=== PATIENT | male | born 1960 | race Caucasian/White ===

== ENCOUNTER 2020-01-14 15:23 | Outpatient (CLI) | payer MEDICARE, SELFPAY ==
[2020-01-14 15:32] LABS: Basophils Absolute Auto 0.04 K/mm3 (0.00-0.10); Basophils Percent Auto 0.7 % (0.0-1.0); Eosinophils Absolute Auto 0.29 K/mm3 (0.02-0.50); Eosinophils Percent Auto 4.9 % (1.0-6.0); Hematocrit 36.9 % (40.0-54.0); Hemoglobin 11.7 g/dL (14.0-18.0); Immature Granulocyte Absolute 0.14 K/mm3 (0.00-0.00); Immature Granulocyte Percent A 2.4 % (0.0-0.0); Lymphocytes Absolute Auto 1.67 K/mm3 (1.10-4.50); Lymphocytes Percent Auto 28.5 % (18.0-42.0); Mean Corpuscular HGB Conc 31.7 g/dL (32.0-36.0); Mean Corpuscular Hemoglobin 25.3 pg (27.0-31.0); Mean Corpuscular Volume 79.9 fL (78.0-102.0); Mean Platelet Volume 10.1 fl (8.7-11.0); Monocytes Absolute Auto 0.67 K/mm3 (0.10-0.90); Monocytes Percent Auto 11.4 % (2.0-11.0); Neutrophils Absolute Auto 3.1 K/mm3 (1.7-7.2); Neutrophils Percent Auto 52.1 % (50.0-70.0); Platelet Count Result 238 K/mm3 (150-420); Red Blood Count 4.62 M/mm3 (4.70-6.10); Red Cell Distribution Width 15.2 % (11.6-14.4); White Blood Count 5.9 K/mm3 (4.8-10.8)
[2020-01-14 15:57] LABS: Hemoglobin A1C 8.3 % (<5.7)
[2020-01-14 16:43] LABS: Alanine Aminotransferase 30 U/L (16-63); Alkaline Phosphatase 65 U/L (46-116); Anion Gap 15.3 mmol/L (7-16); Aspartate Amino Transferase 25 U/L (15-37); Bilirubin,Total 0.3 mg/dL (0.00-1.00); Blood Urea Nitrogen 13 mg/dL (7-18); Calcium 9.4 mg/dL (8.5-10.1); Carbon Dioxide 29 mmol/L (21-32); Chloride 107 mmol/L (98-108); Cholesterol 108 mg/dL (0-200); Estimated Glomerular Filt Rate > 60; Glucose 136 mg/dL (70-99); HDL Direct 30 mg/dL (40-60); LDL Cholesterol Calculated 40 mg/dL (<130); Osmolality Calculated 306 mOsm/kg (285-295); Potassium 4.3 mmol/L (3.5-5.1); Sodium 147 mmol/L (136-145); Total Protein 7.5 g/dL (6.4-8.2); Triglycerides 188 mg/dL (0-150)
== END 2020-01-14 15:24 | disposition home or self-care (01) ==
LOC: CHSLAB 15:25
PROVIDERS: PCP Internal Medicine; Visit Provider Internal Medicine
DX: E78.2 Mixed hyperlipidemia (principal); E11.65 Type 2 diabetes mellitus with hyperglycemia; I10 Essential (primary) hypertension
CPT/HCPCS: 36415; 80053; 80061; 83036; 85025

== ENCOUNTER 2020-03-13 15:13 | Outpatient (CLI) | payer MEDICARE, MEDICAID, SELFPAY ==
--- NOTE | ~2020-03-13 | XR_ITS ---
EXAMINATION:XR_CERV2-3V_CR DATE: 03/13/2020 16:00 INDICATION: Neck pain TECHNIQUE: AP, lateral, lateral swimmers and odontoid views of the cervical spine are provided. COMPARISON: None FINDINGS: Alignment is normal. The odontoid is intact. No fracture is identified. The vertebral body heights are normal. There is moderate loss of intervertebral disc space height at C5-6 and C6-7. Ante rior endplate osteophytes are noted at C5-C6 and C6-7. Prevertebral soft tissues are normal. Median s ternotomy wires and mediastinal surgical clips are seen, likely from prior coronary artery bypass gra fting. IMPRESSION: 1. Mild to moderate lower cervical spondylosis without acute findings. Reviewed, dictated and finalized at location A.
--- NOTE | ~2020-03-13 | XR_ITS ---
EXAMINATION: XR shoulder RT min 2V INDICATION: Right shoulder pain TECHNIQUE: Four views of the right shoulder are submitted. COMPARISON: None FINDINGS: Normal alignment. No fracture. There is moderate osteoarthritis of the glenohumeral joint. The glenohumeral joint is unremarkable. Soft tissues are unremarkable. IMPRESSION: Moderate osteoarthritis of the acromioclavicular joint. Reviewed, dictated and finalized at location A.
--- NOTE | ~2020-03-13 | XR_ITS ---
XR shoulder LT min 2V 03/13/2020 16:00 Indication: Left shoulder pain Procedure: 4 views left shoulder Comparison: No prior studies for comparison. Findings: There is moderate osteoarthritis of the left acromioclavicular joint with adjacent loose vicente dies. No acute fracture or traumatic malalignment. No significant soft tissue abnormality.. Visualize d aspects of the lung parenchyma are unremarkable. Impression: 1: Moderate degenerative changes of the acromioclavicular joint with adjacent loose bodies. Reviewed, dictated and finalized at location A. Impression: 1: Moderate degenerative changes of the acromioclavicular joint with adjacent l oose bodies.
== END 2020-03-13 15:14 | disposition home or self-care (01) ==
LOC: CHSIMG 15:15
PROVIDERS: PCP Internal Medicine; Visit Provider Internal Medicine
DX: M54.2 Cervicalgia (principal); M25.512 Pain in left shoulder; M25.511 Pain in right shoulder
CPT/HCPCS: 72040; 73030

== ENCOUNTER 2020-04-13 10:53 | Outpatient (CLI) | payer MEDICARE, SELFPAY ==
[2020-04-13 11:03] LABS: Basophils Absolute Auto 0.04 K/mm3 (0.00-0.10); Basophils Percent Auto 0.5 % (0.0-1.0); Eosinophils Percent Auto 2.6 % (1.0-6.0); Hemoglobin 12.4 g/dL (14.0-18.0); Immature Granulocyte Absolute 0.12 K/mm3 (0.00-0.00); Immature Granulocyte Percent A 1.5 % (0.0-0.0); Lymphocytes Percent Auto 29.5 % (18.0-42.0); Mean Corpuscular HGB Conc 31.8 g/dL (32.0-36.0); Mean Corpuscular Volume 78.6 fL (78.0-102.0); Mean Platelet Volume 10.3 fl (8.7-11.0); Monocytes Absolute Auto 0.81 K/mm3 (0.10-0.90); Monocytes Percent Auto 10.4 % (2.0-11.0); Neutrophils Absolute Auto 4.3 K/mm3 (1.7-7.2); Neutrophils Percent Auto 55.5 % (50.0-70.0); Platelet Count Result 254 K/mm3 (150-420); Red Blood Count 4.96 M/mm3 (4.70-6.10); White Blood Count 7.8 K/mm3 (4.8-10.8)
[2020-04-13 11:14] LABS: Hemoglobin A1C 10.1 % (<5.7)
[2020-04-13 12:42] LABS: Alanine Aminotransferase 26 U/L (16-63); Albumin Level 3.9 g/dL (3.4-5.0); Alkaline Phosphatase 75 U/L (46-116); Anion Gap 17.3 mmol/L (7-16); Aspartate Amino Transferase 20 U/L (15-37); Bilirubin,Total 0.2 mg/dL (0.00-1.00); Blood Urea Nitrogen 16 mg/dL (7-18); Calcium 9.8 mg/dL (8.5-10.1); Carbon Dioxide 26 mmol/L (21-32); Chloride 98 mmol/L (98-108); Cholesterol 125 mg/dL (0-200); Estimated Glomerular Filt Rate > 60; Glucose 319 mg/dL (70-99); HDL Direct 31 mg/dL (40-60); Osmolality Calculated 297 mOsm/kg (285-295); Potassium 4.3 mmol/L (3.5-5.1); Sodium 137 mmol/L (136-145); Total Protein 7.4 g/dL (6.4-8.2)
[2020-04-13 12:43] LABS: LDL Cholesterol Calculated -11 mg/dL (<130); LDL Cholesterol Direct 32 mg/dL (0-130); Triglycerides 527 mg/dL (0-150)
== END 2020-04-13 10:54 | disposition home or self-care (01) ==
PROVIDERS: PCP Internal Medicine; Visit Provider Internal Medicine
DX: E78.5 Hyperlipidemia, unspecified (principal); E11.9 Type 2 diabetes mellitus without complications; I10 Essential (primary) hypertension
CPT/HCPCS: 36415; 80053; 80061; 83036; 83721; 85025

== ENCOUNTER 2020-07-14 15:08 | Outpatient (CLI) | payer MEDICARE, SELFPAY ==
[2020-07-14 15:23] LABS: Basophils Absolute Auto 0.04 K/mm3 (0.00-0.10); Basophils Percent Auto 0.6 % (0.0-1.0); Eosinophils Absolute Auto 0.17 K/mm3 (0.02-0.50); Eosinophils Percent Auto 2.7 % (1.0-6.0); Hematocrit 37.4 % (40.0-54.0); Hemoglobin 11.6 g/dL (14.0-18.0); Immature Granulocyte Absolute 0.06 K/mm3 (0.00-0.00); Immature Granulocyte Percent A 0.9 % (0.0-0.0); Lymphocytes Absolute Auto 1.85 K/mm3 (1.10-4.50); Mean Corpuscular Hemoglobin 25.6 pg (27.0-31.0); Mean Corpuscular Volume 82.4 fL (78.0-102.0); Mean Platelet Volume 10.7 fl (8.7-11.0); Monocytes Absolute Auto 0.57 K/mm3 (0.10-0.90); Monocytes Percent Auto 8.9 % (2.0-11.0); Neutrophils Absolute Auto 3.7 K/mm3 (1.7-7.2); Neutrophils Percent Auto 57.9 % (50.0-70.0); Platelet Count Result 247 K/mm3 (150-420); Red Blood Count 4.54 M/mm3 (4.70-6.10); Red Cell Distribution Width 14.9 % (11.6-14.4); White Blood Count 6.4 K/mm3 (4.8-10.8)
[2020-07-14 16:28] LABS: Alanine Aminotransferase 32 U/L (16-63); Albumin Level 3.8 g/dL (3.4-5.0); Alkaline Phosphatase 54 U/L (46-116); Anion Gap 12 mmol/L (8-16); Aspartate Amino Transferase 29 U/L (15-37); Bilirubin,Total 0.3 mg/dL (0.00-1.00); Blood Urea Nitrogen 13 mg/dL (7-18); Calcium 9.2 mg/dL (8.5-10.1); Carbon Dioxide 25 mmol/L (21-32); Chloride 104 mmol/L (98-108); Cholesterol 105 mg/dL (0-200); Estimated Glomerular Filt Rate > 60; Glucose 165 mg/dL (70-99); HDL Direct 34 mg/dL (40-60); LDL Cholesterol Calculated 35 mg/dL (<130); Osmolality Calculated 296 mOsm/kg (285-295); Potassium 4.2 mmol/L (3.5-5.1); Sodium 141 mmol/L (136-145); Total Protein 7.2 g/dL (6.4-8.2); Triglycerides 178 mg/dL (0-150)
== END 2020-07-14 15:09 | disposition home or self-care (01) ==
LOC: CHSLAB 15:10
PROVIDERS: PCP Internal Medicine; Visit Provider Internal Medicine
DX: E78.5 Hyperlipidemia, unspecified (principal); E11.9 Type 2 diabetes mellitus without complications; I10 Essential (primary) hypertension
CPT/HCPCS: 36415; 80053; 80061; 85025

== ENCOUNTER 2020-07-15 13:55 | Outpatient (CLI) | payer MEDICARE, MEDICAID, SELFPAY ==
--- NOTE | ~2020-07-15 | XR_ITS ---
EXAMINATION: XR knee LT min 4V DATE: 07/15/2020 14:48 INDICATION: Left knee pain. TECHNIQUE: 4 views of left knee were obtained. COMPARISON: None. FINDINGS: Bone alignment is normal. No fracture. There is mild tricompartmental osteoarthritis. No kn ee joint effusion. IMPRESSION: 1. Mild left knee osteoarthritis. Reviewed, dictated and finalized at location A.
--- NOTE | ~2020-07-15 | XR_ITS ---
EXAMINATION: XR knee RT min 4V DATE: 07/15/2020 14:48 INDICATION: Right knee pain. TECHNIQUE: 4 views of right knee were obtained. COMPARISON: Right knee radiographs 10/06/2009 FINDINGS: Bone alignment is normal. No fracture. There is mild tricompartmental osteoarthritis. No kn ee joint effusion. There is prepatellar soft tissue swelling. IMPRESSION: 1. Mild right knee osteoarthritis. 2. Prepatellar bursitis. Reviewed, dictated and finalized at location A.
== END 2020-07-15 13:56 | disposition home or self-care (01) ==
LOC: CHSIMG 13:57
PROVIDERS: PCP Internal Medicine; Visit Provider Internal Medicine
DX: M25.562 Pain in left knee (principal); M25.561 Pain in right knee
CPT/HCPCS: 73564

== ENCOUNTER 2020-10-14 15:30 | Outpatient (CLI) | payer MEDICARE, SELFPAY ==
[2020-10-14 15:44] LABS: Basophils Absolute Auto 0.05 K/mm3 (0.00-0.10); Basophils Percent Auto 0.8 % (0.0-1.0); Eosinophils Absolute Auto 0.18 K/mm3 (0.02-0.50); Eosinophils Percent Auto 2.9 % (1.0-6.0); Hematocrit 38.2 % (40.0-54.0); Hemoglobin 11.5 g/dL (14.0-18.0); Immature Granulocyte Absolute 0.07 K/mm3 (0.00-0.00); Immature Granulocyte Percent A 1.1 % (0.0-0.0); Lymphocytes Absolute Auto 1.69 K/mm3 (1.10-4.50); Lymphocytes Percent Auto 27.3 % (18.0-42.0); Mean Corpuscular HGB Conc 30.1 g/dL (32.0-36.0); Mean Corpuscular Hemoglobin 24.8 pg (27.0-31.0); Mean Corpuscular Volume 82.3 fL (78.0-102.0); Mean Platelet Volume 10.5 fl (8.7-11.0); Monocytes Absolute Auto 0.69 K/mm3 (0.10-0.90); Monocytes Percent Auto 11.1 % (2.0-11.0); Neutrophils Absolute Auto 3.5 K/mm3 (1.7-7.2); Neutrophils Percent Auto 56.8 % (50.0-70.0); Platelet Count Result 254 K/mm3 (150-420); Red Blood Count 4.64 M/mm3 (4.70-6.10); Red Cell Distribution Width 14.6 % (11.6-14.4); White Blood Count 6.2 K/mm3 (4.8-10.8)
[2020-10-14 15:45] LABS: Add Urine Microscopic? YES; Appearance Urine Clear (Clear); Bilirubin Urine Negative (Negative); Blood Urine Negative (Negative); Color Urine Yellow (Yellow); Glucose Urine UA 3+ (Negative); Ketones Urine Negative (Negative); Leukocyte Esterase Ur Negative (Negative); Nitrate Urine Negative (Negative); Protein Urine Negative (Negative); Specific Grav Ur >= 1.030 (1.010-1.020); Urobilinogen Urine 0.2 mg/dL (0.2-1.0)
[2020-10-14 15:53] LABS: Creatinine Urine 127.06 mg/dL (40-278); MALB Creatinine Ratio 13.5 mg/g (0-30); Microalbumin Urine Random 17.2 mg/L
[2020-10-14 16:23] LABS: Hemoglobin A1C 9.3 % (<5.7)
[2020-10-14 16:59] LABS: Alanine Aminotransferase 39 U/L (16-63); Albumin Level 3.9 g/dL (3.4-5.0); Alkaline Phosphatase 75 U/L (46-116); Anion Gap 10 mmol/L (8-16); Aspartate Amino Transferase 27 U/L (15-37); Bilirubin,Total 0.2 mg/dL (0.00-1.00); Blood Urea Nitrogen 11 mg/dL (7-18); Calcium 9.7 mg/dL (8.5-10.1); Carbon Dioxide 27 mmol/L (21-32); Chloride 104 mmol/L (98-108); Cholesterol 118 mg/dL (0-200); Estimated Glomerular Filt Rate > 60; Glucose 201 mg/dL (70-99); HDL Direct 35 mg/dL (40-60); LDL Cholesterol Calculated 36 mg/dL (<130); Osmolality Calculated 297 mOsm/kg (285-295); Potassium 4.2 mmol/L (3.5-5.1); Prostate Specific Antigen 0.4 ng/mL (< OR = 4.0); Sodium 141 mmol/L (136-145); Thyroid Stimulating Hormone 2.34 uIU/mL (0.36-3.74); Total Protein 7.4 g/dL (6.4-8.2); Triglycerides 236 mg/dL (0-150)
[2020-10-14 17:15] LABS: Bacteria Urine Trace /hpf; Calcium Oxalate Crystals Urine Present /hpf; RBC Urine 0-2 /hpf (0-2); WBC Urine 0-3 /hpf (0-3)
== END 2020-10-14 15:31 | disposition home or self-care (01) ==
LOC: CHSLAB 15:33
PROVIDERS: PCP Internal Medicine; Visit Provider Internal Medicine
DX: E11.9 Type 2 diabetes mellitus without complications (principal); I10 Essential (primary) hypertension; Z00.00 Encounter for general adult medical examination without abnormal findings; Z12.5 Encounter for screening for malignant neoplasm of prostate
CPT/HCPCS: 36415; 80053; 80061; 81001; 82043; 83036; 84153; 84443; 85025; G0103

== ENCOUNTER 2021-01-15 15:18 | Outpatient (CLI) | payer MEDICARE, SELFPAY ==
[2021-01-15 15:27] LABS: Basophils Absolute Auto 0.04 K/mm3 (0.00-0.10); Basophils Percent Auto 0.5 % (0.0-1.0); Eosinophils Absolute Auto 0.28 K/mm3 (0.02-0.50); Eosinophils Percent Auto 3.7 % (1.0-6.0); Hematocrit 39.9 % (40.0-54.0); Hemoglobin 12.3 g/dL (14.0-18.0); Immature Granulocyte Absolute 0.06 K/mm3 (0.00-0.00); Immature Granulocyte Percent A 0.8 % (0.0-0.0); Lymphocytes Absolute Auto 1.66 K/mm3 (1.10-4.50); Lymphocytes Percent Auto 21.8 % (18.0-42.0); Mean Corpuscular HGB Conc 30.8 g/dL (32.0-36.0); Mean Corpuscular Hemoglobin 24.8 pg (27.0-31.0); Mean Corpuscular Volume 80.4 fL (78.0-102.0); Mean Platelet Volume 10.3 fl (8.7-11.0); Monocytes Absolute Auto 0.78 K/mm3 (0.10-0.90); Monocytes Percent Auto 10.2 % (2.0-11.0); Neutrophils Absolute Auto 4.8 K/mm3 (1.7-7.2); Platelet Count Result 262 K/mm3 (150-420); Red Blood Count 4.96 M/mm3 (4.70-6.10); Red Cell Distribution Width 14.9 % (11.6-14.4); White Blood Count 7.6 K/mm3 (4.8-10.8)
[2021-01-15 15:45] LABS: Hemoglobin A1C 8.2 % (<5.7)
[2021-01-15 16:21] LABS: Alanine Aminotransferase 43 U/L (16-63); Albumin Level 4.2 g/dL (3.4-5.0); Alkaline Phosphatase 60 U/L (46-116); Anion Gap 11 mmol/L (8-16); Aspartate Amino Transferase 37 U/L (15-37); Bilirubin,Total 0.3 mg/dL (0.00-1.00); Blood Urea Nitrogen 13 mg/dL (7-18); Calcium 9.8 mg/dL (8.5-10.1); Carbon Dioxide 27 mmol/L (21-32); Chloride 105 mmol/L (98-108); Cholesterol 112 mg/dL (0-200); Estimated Glomerular Filt Rate > 60; Glucose 112 mg/dL (70-99); HDL Direct 35 mg/dL (40-60); LDL Cholesterol Calculated 46 mg/dL (<130); Osmolality Calculated 297 mOsm/kg (285-295); Potassium 4.2 mmol/L (3.5-5.1); Sodium 143 mmol/L (136-145); Total Protein 7.5 g/dL (6.4-8.2); Triglycerides 156 mg/dL (0-150)
== END 2021-01-15 15:19 | disposition home or self-care (01) ==
LOC: CHSLAB 15:19
PROVIDERS: PCP Internal Medicine; Visit Provider Internal Medicine
DX: E11.9 Type 2 diabetes mellitus without complications (principal); E78.2 Mixed hyperlipidemia; I10 Essential (primary) hypertension
CPT/HCPCS: 36415; 80053; 80061; 83036; 85025

== ENCOUNTER 2021-04-13 10:36 | Outpatient (CLI) | payer MEDICARE, SELFPAY ==
[2021-04-13 10:46] LABS: Basophils Absolute Auto 0.05 K/mm3 (0.00-0.10); Basophils Percent Auto 0.7 % (0.0-1.0); Eosinophils Absolute Auto 0.26 K/mm3 (0.02-0.50); Eosinophils Percent Auto 3.8 % (1.0-6.0); Hematocrit 36.6 % (40.0-54.0); Hemoglobin 11.3 g/dL (14.0-18.0); Immature Granulocyte Absolute 0.05 K/mm3 (0.00-0.00); Immature Granulocyte Percent A 0.7 % (0.0-0.0); Lymphocytes Absolute Auto 2.22 K/mm3 (1.10-4.50); Lymphocytes Percent Auto 32.3 % (18.0-42.0); Mean Corpuscular HGB Conc 30.9 g/dL (32.0-36.0); Monocytes Absolute Auto 0.75 K/mm3 (0.10-0.90); Monocytes Percent Auto 10.9 % (2.0-11.0); Neutrophils Absolute Auto 3.6 K/mm3 (1.7-7.2); Neutrophils Percent Auto 51.6 % (50.0-70.0); Platelet Count Result 238 K/mm3 (150-420); Red Blood Count 4.52 M/mm3 (4.70-6.10); Red Cell Distribution Width 14.5 % (11.6-14.4); White Blood Count 6.9 K/mm3 (4.8-10.8)
[2021-04-13 11:12] LABS: Hemoglobin A1C 8.8 % (<5.7)
[2021-04-13 11:31] LABS: Alanine Aminotransferase 46 U/L (16-63); Albumin Level 3.7 g/dL (3.4-5.0); Alkaline Phosphatase 82 U/L (46-116); Anion Gap 11 mmol/L (8-16); Aspartate Amino Transferase 35 U/L (15-37); Bilirubin,Total 0.2 mg/dL (0.00-1.00); Blood Urea Nitrogen 14 mg/dL (7-18); Calcium 9.3 mg/dL (8.5-10.1); Carbon Dioxide 26 mmol/L (21-32); Chloride 102 mmol/L (98-108); Cholesterol 105 mg/dL (0-200); Estimated Glomerular Filt Rate > 60; Glucose 307 mg/dL (70-99); HDL Direct 29 mg/dL (40-60); LDL Cholesterol Calculated 14 mg/dL (<130); Osmolality Calculated 300 mOsm/kg (285-295); Potassium 4.2 mmol/L (3.5-5.1); Sodium 139 mmol/L (136-145); Triglycerides 312 mg/dL (0-150)
== END 2021-04-13 10:37 | disposition home or self-care (01) ==
LOC: CHSLAB 10:38
PROVIDERS: PCP Internal Medicine; Visit Provider Internal Medicine
DX: E11.9 Type 2 diabetes mellitus without complications (principal); E78.5 Hyperlipidemia, unspecified; I10 Essential (primary) hypertension
CPT/HCPCS: 36415; 80053; 80061; 83036; 85025

== ENCOUNTER 2021-07-13 12:52 | Outpatient (CLI) | payer MEDICARE, SELFPAY ==
[2021-07-13 13:03] LABS: Basophils Absolute Auto 0.04 K/mm3 (0.00-0.10); Basophils Percent Auto 0.6 % (0.0-1.0); Eosinophils Absolute Auto 0.22 K/mm3 (0.02-0.50); Eosinophils Percent Auto 3.1 % (1.0-6.0); Hematocrit 40.7 % (40.0-54.0); Immature Granulocyte Absolute 0.11 K/mm3 (0.00-0.00); Immature Granulocyte Percent A 1.5 % (0.0-0.0); Lymphocytes Absolute Auto 1.69 K/mm3 (1.10-4.50); Lymphocytes Percent Auto 23.6 % (18.0-42.0); Mean Corpuscular HGB Conc 31.9 g/dL (32.0-36.0); Mean Corpuscular Hemoglobin 25.7 pg (27.0-31.0); Mean Corpuscular Volume 80.4 fL (78.0-102.0); Mean Platelet Volume 10.7 fl (8.7-11.0); Monocytes Absolute Auto 0.76 K/mm3 (0.10-0.90); Monocytes Percent Auto 10.6 % (2.0-11.0); Neutrophils Absolute Auto 4.3 K/mm3 (1.7-7.2); Neutrophils Percent Auto 60.6 % (50.0-70.0); Platelet Count Result 255 K/mm3 (150-420); Red Blood Count 5.06 M/mm3 (4.70-6.10); Red Cell Distribution Width 15.2 % (11.6-14.4); White Blood Count 7.2 K/mm3 (4.8-10.8)
[2021-07-13 13:14] LABS: Hemoglobin A1C 10.4 % (<5.7)
[2021-07-13 14:18] LABS: Alanine Aminotransferase 45 U/L (16-63); Albumin Level 4.4 g/dL (3.4-5.0); Alkaline Phosphatase 67 U/L (46-116); Anion Gap 12 mmol/L (8-16); Aspartate Amino Transferase 39 U/L (15-37); Bilirubin,Total 0.3 mg/dL (0.00-1.00); Blood Urea Nitrogen 13 mg/dL (7-18); Calcium 9.7 mg/dL (8.5-10.1); Carbon Dioxide 27 mmol/L (21-32); Chloride 102 mmol/L (98-108); Cholesterol 133 mg/dL (0-200); Estimated Glomerular Filt Rate > 60; Glucose 219 mg/dL (70-99); HDL Direct 36 mg/dL (40-60); LDL Cholesterol Calculated 38 mg/dL (<130); Osmolality Calculated 299 mOsm/kg (285-295); Potassium 4.8 mmol/L (3.5-5.1); Sodium 141 mmol/L (136-145); Triglycerides 297 mg/dL (0-150)
== END 2021-07-13 12:53 | disposition home or self-care (01) ==
LOC: CHSLAB 12:54
PROVIDERS: PCP Internal Medicine; Visit Provider Internal Medicine
DX: E11.9 Type 2 diabetes mellitus without complications (principal); E78.2 Mixed hyperlipidemia; I10 Essential (primary) hypertension
CPT/HCPCS: 36415; 80053; 80061; 83036; 85025

== ENCOUNTER 2021-10-14 10:31 | Outpatient (CLI) | payer MEDICARE, SELFPAY ==
[2021-10-14 10:44] LABS: Basophils Absolute Auto 0.04 K/mm3 (0.00-0.10); Basophils Percent Auto 0.6 % (0.0-1.0); Eosinophils Absolute Auto 0.22 K/mm3 (0.02-0.50); Eosinophils Percent Auto 3.2 % (1.0-6.0); Hematocrit 40.9 % (40.0-54.0); Hemoglobin 13.3 g/dL (14.0-18.0); Immature Granulocyte Absolute 0.06 K/mm3 (0.00-0.00); Immature Granulocyte Percent A 0.9 % (0.0-0.0); Lymphocytes Absolute Auto 2.13 K/mm3 (1.10-4.50); Lymphocytes Percent Auto 30.6 % (18.0-42.0); Mean Corpuscular HGB Conc 32.5 g/dL (32.0-36.0); Mean Corpuscular Hemoglobin 26.5 pg (27.0-31.0); Mean Corpuscular Volume 81.6 fL (78.0-102.0); Mean Platelet Volume 10.7 fl (8.7-11.0); Monocytes Absolute Auto 0.79 K/mm3 (0.10-0.90); Monocytes Percent Auto 11.3 % (2.0-11.0); Neutrophils Absolute Auto 3.7 K/mm3 (1.7-7.2); Neutrophils Percent Auto 53.4 % (50.0-70.0); Platelet Count Result 301 K/mm3 (150-420); Red Blood Count 5.01 M/mm3 (4.70-6.10); Red Cell Distribution Width 14.2 % (11.6-14.4)
[2021-10-14 11:11] LABS: Hemoglobin A1C 11.5 % (<5.7)
[2021-10-14 11:20] LABS: Alanine Aminotransferase 49 U/L (16-63); Albumin Level 4.1 g/dL (3.4-5.0); Alkaline Phosphatase 92 U/L (46-116); Anion Gap 8 mmol/L (8-16); Aspartate Amino Transferase 55 U/L (15-37); Bilirubin,Total 0.3 mg/dL (0.00-1.00); Blood Urea Nitrogen 11 mg/dL (7-18); Calcium 10.4 mg/dL (8.5-10.1); Carbon Dioxide 31 mmol/L (21-32); Chloride 97 mmol/L (98-108); Cholesterol 133 mg/dL (0-200); Estimated Glomerular Filt Rate > 60; Glucose 261 mg/dL (70-99); HDL Direct 37 mg/dL (40-60); LDL Cholesterol Calculated 14 mg/dL (<130); Osmolality Calculated 290 mOsm/kg (285-295); Potassium 4.3 mmol/L (3.5-5.1); Sodium 136 mmol/L (136-145); Total Protein 7.6 g/dL (6.4-8.2); Triglycerides 409 mg/dL (0-150)
[2021-10-14 11:24] LABS: LDL Cholesterol Direct 49 mg/dL (0-130)
== END 2021-10-14 10:32 | disposition home or self-care (01) ==
LOC: CHSLAB 10:33
PROVIDERS: PCP Internal Medicine; Visit Provider Internal Medicine
DX: E11.65 Type 2 diabetes mellitus with hyperglycemia (principal); E78.2 Mixed hyperlipidemia; I10 Essential (primary) hypertension
CPT/HCPCS: 36415; 80053; 80061; 83036; 83721; 85025

== ENCOUNTER 2022-01-14 15:39 | Outpatient (CLI) | payer MEDICARE, SELFPAY ==
[2022-01-14 16:11] LABS: Basophils Absolute Auto 0.05 K/mm3 (0.00-0.10); Basophils Percent Auto 0.6 % (0.0-1.0); Eosinophils Absolute Auto 0.17 K/mm3 (0.02-0.50); Eosinophils Percent Auto 2.2 % (1.0-6.0); Hematocrit 41.8 % (40.0-54.0); Hemoglobin 13.2 g/dL (14.0-18.0); Immature Granulocyte Absolute 0.07 K/mm3 (0.00-0.00); Immature Granulocyte Percent A 0.9 % (0.0-0.0); Lymphocytes Absolute Auto 2.11 K/mm3 (1.10-4.50); Lymphocytes Percent Auto 26.9 % (18.0-42.0); Mean Corpuscular HGB Conc 31.6 g/dL (32.0-36.0); Mean Corpuscular Hemoglobin 25.9 pg (27.0-31.0); Mean Platelet Volume 11.2 fl (8.7-11.0); Monocytes Absolute Auto 0.67 K/mm3 (0.10-0.90); Monocytes Percent Auto 8.5 % (2.0-11.0); Neutrophils Absolute Auto 4.8 K/mm3 (1.7-7.2); Neutrophils Percent Auto 60.9 % (50.0-70.0); Platelet Count Result 262 K/mm3 (150-420); White Blood Count 7.8 K/mm3 (4.8-10.8)
[2022-01-14 16:27] LABS: Hemoglobin A1C 11.8 % (<5.7)
[2022-01-14 16:50] LABS: Alanine Aminotransferase 29 U/L (16-63); Albumin Level 4.3 g/dL (3.4-5.0); Alkaline Phosphatase 68 U/L (46-116); Anion Gap 10 mmol/L (8-16); Aspartate Amino Transferase 17 U/L (15-37); Bilirubin,Total 0.4 mg/dL (0.00-1.00); Blood Urea Nitrogen 12 mg/dL (7-18); Calcium 9.9 mg/dL (8.5-10.1); Carbon Dioxide 28 mmol/L (21-32); Chloride 97 mmol/L (98-108); Cholesterol 138 mg/dL (0-200); Estimated Glomerular Filt Rate > 60; Glucose 357 mg/dL (70-99); HDL Direct 36 mg/dL (40-60); LDL Cholesterol Calculated 11 mg/dL (<130); Osmolality Calculated 293 mOsm/kg (285-295); Potassium 4.4 mmol/L (3.5-5.1); Sodium 135 mmol/L (136-145); Total Protein 7.7 g/dL (6.4-8.2); Triglycerides 456 mg/dL (0-150)
[2022-01-14 17:19] LABS: LDL Cholesterol Direct 48 mg/dL (0-130)
== END 2022-01-14 15:40 | disposition home or self-care (01) ==
LOC: CHSLAB 15:41
PROVIDERS: PCP Internal Medicine; Visit Provider Internal Medicine
DX: E11.9 Type 2 diabetes mellitus without complications (principal); E78.5 Hyperlipidemia, unspecified; I10 Essential (primary) hypertension
CPT/HCPCS: 36415; 80053; 80061; 83036; 83721; 85025

== ENCOUNTER 2022-03-29 15:42 | Outpatient (CLI) | payer MEDICARE, MEDICAID, SELFPAY ==
--- NOTE | ~2022-03-29 | XR_ITS ---
EXAMINATION: XR ankle RT min 3V, XR foot RT min 3V DATE: 03/29/2022 16:14 INDICATION: Right lower leg/ankle pain and swelling. Diabetic neuropathy. TECHNIQUE: 1. Anteroposterior, mortise, additional oblique and lateral view of the right ankle were obtained. 2. Dorsoplantar, two oblique and lateral views of the right foot were obtained. COMPARISON: None. FINDINGS: Alignment of the right foot and ankle is normal. No fracture or osteochondral lesion. Minimal to mild polyarticular osteoarthritis throughout the right foot most prominent at the first metatarsophalange al and a few interphalangeal joints. No erosions or periosteal reaction. Moderate-sized Achilles and plantar calcaneal spurs. No ankle joint effusion. Ingestion of mild soft tissue swelling at the anter olateral aspect of the right ankle and hindfoot. IMPRESSION: 1. Relatively mild polyarticular osteoarthritis in the right foot. No acute osseous abnormality. 2. Moderate-sized Achilles and plantar calcaneal spurs. Reviewed, dictated and finalized at location A. IMPRESSION: 1. Relatively mild polyarticular osteoarthritis in the right foot. No acute oss eous abnormality. 2. Moderate-sized Achilles and plantar calcaneal spurs.
[2022-03-29 16:00] LABS: Basophils Absolute Auto 0.05 K/mm3 (0.00-0.10); Basophils Percent Auto 0.6 % (0.0-1.0); Eosinophils Percent Auto 2.6 % (1.0-6.0); Hematocrit 37.6 % (40.0-54.0); Hemoglobin 12.3 g/dL (14.0-18.0); Immature Granulocyte Percent A 1.3 % (0.0-0.0); Lymphocytes Absolute Auto 1.84 K/mm3 (1.10-4.50); Lymphocytes Percent Auto 23.9 % (18.0-42.0); Mean Corpuscular HGB Conc 32.7 g/dL (32.0-36.0); Mean Corpuscular Hemoglobin 27.2 pg (27.0-31.0); Mean Platelet Volume 10.8 fl (8.7-11.0); Neutrophils Absolute Auto 4.5 K/mm3 (1.7-7.2); Neutrophils Percent Auto 58.6 % (50.0-70.0); Platelet Count Result 286 K/mm3 (150-420); Red Blood Count 4.53 M/mm3 (4.70-6.10); Red Cell Distribution Width 13.7 % (11.6-14.4); White Blood Count 7.7 K/mm3 (4.8-10.8)
[2022-03-29 16:01] LABS: Appearance Urine Clear (Clear); Bilirubin Urine Negative (Negative); Color Urine Light Yellow (Yellow); Glucose Urine UA 3+ (Negative); Ketones Urine Negative (Negative); Leukocyte Esterase Ur Negative (Negative); Nitrate Urine Negative (Negative); Protein Urine Negative (Negative); Specific Grav Ur <= 1.005 (1.010-1.020); Urobilinogen Urine 0.2 mg/dL (0.2-1.0); pH Urine 5.5 (5.0-8.0)
[2022-03-29 16:11] LABS: Add Urine Microscopic? YES; Blood Urine Trace-Intact (Negative); RBC Urine None seen /hpf (0-2); Squamous Epithelial Cell Urine Rare /hpf (Few); WBC Urine None seen /hpf (0-3)
[2022-03-29 16:12] LABS: Bacteria Urine None seen /hpf
[2022-03-29 16:14] LABS: Alanine Aminotransferase 26 U/L (16-63); Albumin Level 3.9 g/dL (3.4-5.0); Alkaline Phosphatase 116 U/L (46-116); Anion Gap 12 mmol/L (8-16); Aspartate Amino Transferase 14 U/L (15-37); Bilirubin,Total 0.3 mg/dL (0.00-1.00); Blood Urea Nitrogen 15 mg/dL (7-18); CRP 0.7 mg/dL (0.0-0.9); Carbon Dioxide 24 mmol/L (21-32); Chloride 93 mmol/L (98-108); Estimated Glomerular Filt Rate > 60; Potassium 4.4 mmol/L (3.5-5.1); Sodium 129 mmol/L (136-145); Total Protein 7.8 g/dL (6.4-8.2)
[2022-03-29 16:19] LABS: D Dimer 0.29 mg/L (0.19-0.50)
[2022-03-29 16:26] LABS: Glucose 527 mg/dL (70-99); Osmolality Calculated 292 mOsm/kg (285-295)
== END 2022-03-29 15:43 | disposition home or self-care (01) ==
LOC: CHSLAB 15:44
PROVIDERS: PCP Internal Medicine; Visit Provider Internal Medicine
DX: M79.604 Pain in right leg (principal); M79.89 Other specified soft tissue disorders; E11.40 Type 2 diabetes mellitus with diabetic neuropathy, unspecified
CPT/HCPCS: 36415; 73610; 73630; 80053; 81001; 85025; 85380; 86140

== ENCOUNTER 2022-04-14 11:06 | Outpatient (CLI) | payer MEDICARE, SELFPAY ==
[2022-04-14 11:53] LABS: Basophils Absolute Auto 0.04 K/mm3 (0.00-0.10); Basophils Percent Auto 0.5 % (0.0-1.0); Eosinophils Absolute Auto 0.43 K/mm3 (0.02-0.50); Eosinophils Percent Auto 5.8 % (1.0-6.0); Hematocrit 41.1 % (40.0-54.0); Hemoglobin 12.7 g/dL (14.0-18.0); Immature Granulocyte Absolute 0.06 K/mm3 (0.00-0.00); Immature Granulocyte Percent A 0.8 % (0.0-0.0); Lymphocytes Absolute Auto 1.84 K/mm3 (1.10-4.50); Lymphocytes Percent Auto 24.6 % (18.0-42.0); Mean Corpuscular HGB Conc 30.9 g/dL (32.0-36.0); Mean Corpuscular Hemoglobin 26.7 pg (27.0-31.0); Mean Corpuscular Volume 86.3 fL (78.0-102.0); Mean Platelet Volume 10.6 fl (8.7-11.0); Monocytes Absolute Auto 0.56 K/mm3 (0.10-0.90); Monocytes Percent Auto 7.5 % (2.0-11.0); Neutrophils Absolute Auto 4.5 K/mm3 (1.7-7.2); Neutrophils Percent Auto 60.8 % (50.0-70.0); Platelet Count Result 273 K/mm3 (150-420); Red Blood Count 4.76 M/mm3 (4.70-6.10); White Blood Count 7.5 K/mm3 (4.8-10.8)
[2022-04-15 19:07] LABS: Hemoglobin A1C 11.8 % (<5.7)
[2022-04-15 19:32] LABS: Alanine Aminotransferase 27 U/L (16-63); Alkaline Phosphatase 57 U/L (46-116); Anion Gap 7 mmol/L (8-16); Aspartate Amino Transferase 26 U/L (15-37); Bilirubin,Total 0.2 mg/dL (0.00-1.00); Blood Urea Nitrogen 8 mg/dL (7-18); Calcium 9.2 mg/dL (8.5-10.1); Carbon Dioxide 28 mmol/L (21-32); Chloride 103 mmol/L (98-108); Cholesterol 115 mg/dL (0-200); Estimated Glomerular Filt Rate > 60; Glucose 289 mg/dL (70-99); HDL Direct 45 mg/dL (40-60); LDL Cholesterol Calculated 33 mg/dL (<130); Osmolality Calculated 295 mOsm/kg (285-295); Potassium 4.2 mmol/L (3.5-5.1); Sodium 138 mmol/L (136-145); Total Protein 7.3 g/dL (6.4-8.2); Triglycerides 185 mg/dL (0-150)
== END 2022-04-14 11:07 | disposition home or self-care (01) ==
LOC: CHSLAB 11:08
PROVIDERS: PCP Internal Medicine; Visit Provider Internal Medicine
DX: E78.2 Mixed hyperlipidemia (principal); E11.65 Type 2 diabetes mellitus with hyperglycemia; I10 Essential (primary) hypertension
CPT/HCPCS: 36415; 80053; 80061; 83036; 85025

== ENCOUNTER 2022-07-20 07:43 | Outpatient (CLI) | payer MEDICARE, SELFPAY ==
[2022-07-20 07:53] LABS: Basophils Absolute Auto 0.05 K/mm3 (0.00-0.10); Basophils Percent Auto 0.6 % (0.0-1.0); Eosinophils Absolute Auto 0.39 K/mm3 (0.02-0.50); Eosinophils Percent Auto 4.5 % (1.0-6.0); Hematocrit 38.2 % (40.0-54.0); Hemoglobin 12.6 g/dL (14.0-18.0); Immature Granulocyte Absolute 0.17 K/mm3 (0.00-0.00); Lymphocytes Absolute Auto 2.86 K/mm3 (1.10-4.50); Lymphocytes Percent Auto 33.3 % (18.0-42.0); Mean Corpuscular Hemoglobin 27.3 pg (27.0-31.0); Mean Corpuscular Volume 82.9 fL (78.0-102.0); Mean Platelet Volume 10.6 fl (8.7-11.0); Monocytes Absolute Auto 0.91 K/mm3 (0.10-0.90); Monocytes Percent Auto 10.6 % (2.0-11.0); Neutrophils Absolute Auto 4.2 K/mm3 (1.7-7.2); Platelet Count Result 247 K/mm3 (150-420); Red Blood Count 4.61 M/mm3 (4.70-6.10); Red Cell Distribution Width 13.4 % (11.6-14.4); White Blood Count 8.6 K/mm3 (4.8-10.8)
[2022-07-20 08:12] LABS: Alanine Aminotransferase 28 U/L (16-63); Alkaline Phosphatase 84 U/L (46-116); Anion Gap 7 mmol/L (8-16); Aspartate Amino Transferase 18 U/L (15-37); Bilirubin,Total 0.3 mg/dL (0.00-1.00); Blood Urea Nitrogen 9 mg/dL (7-18); Carbon Dioxide 29 mmol/L (21-32); Chloride 100 mmol/L (98-108); Estimated Glomerular Filt Rate > 60; Glucose 123 mg/dL (70-99); Osmolality Calculated 281 mOsm/kg (285-295); Potassium 3.2 mmol/L (3.5-5.1); Sodium 136 mmol/L (136-145); Total Protein 7.3 g/dL (6.4-8.2)
== END 2022-07-20 07:44 | disposition home or self-care (01) ==
LOC: CHSLAB 07:45
PROVIDERS: PCP Internal Medicine; Visit Provider Internal Medicine
DX: E11.65 Type 2 diabetes mellitus with hyperglycemia (principal)
CPT/HCPCS: 36415; 80053; 83036; 85025

== ENCOUNTER 2022-07-22 15:24 | Emergency (ER) | payer MEDICARE, MEDICAID, SELFPAY ==
[2022-07-22 15:25] VITALS: BP 110/77; PULSE 111; RESP 20; TEMP 35.8; O2SAT 97
--- NOTE | 2022-07-22 15:32 | ED.CHESTPAIN ---
HPI - Chest Pain General Chief Complaint: Chest Pain Stated Complaint: sent by Dr. Cummings-atrial flutter Time Seen by Provider: 07/22/22 15:26 Source: patient and RN notes reviewed Mode of arrival: wheelchair Limitations: no limitations History of Present Illness HPI narrative: Patient was at his doctor's office today checkup on his recent lab work and chronic problems. He has a history of hypertension, hyperlipidemia, coronary artery disease status post CABG 20 years ago. Also has a history of type 2 diabetes insulin requiring. While at the office he had an episode where he was feeling some chest tightness and diaphoretic. Doctor there noted he had some diaphoresis and was short of breath. His primary care did a EKG which showed atrial flutter with a 2-1 block and a rate of 103. Patient then relates that he has been having these episodes for couple years. He feels like he can not walk 4 5 steps before he short of breath and diaphoretic again. Says he goes in the house and he rests in the cool air feels much better. He states he had a CABG performed at [facility] in [place] 20 years ago. MD complaint: chest discomfort Pertinent past history: coronary artery disease and CABG (20 years ago) Onset (ago): hour(s) (2) Timing of current episode: episodic, weekly and still present Prior episodes: Yes Onset: during rest Pain location: substernal Pain radiation: left arm and back Severity: moderate Quality: tightness Relieving factors: rest Exacerbating factors: exertion Associated symptoms: diaphoresis and other (dizzy) Treatment prior to arrival: none Risk Factors Coronary artery disease risk factors: diabetes, smoking history, hyperlipidemia and hypertension Thoracic aortic dissection risk factors: none Related Data Home Medications Medication Instructions Recorded Confirmed carvedilol 6.25 mg tablet 6.25 mg PO BID 10/07/19 07/22/22 duloxetine 30 mg capsule,delayed 30 mg PO BID 10/07/19 07/22/22 release ezetimibe 10 mg tablet 10 mg PO DAILY 10/07/19 07/22/22 fenofibrate nanocrystallized 145 145 mg PO HS 10/07/19 07/22/22 mg tablet hydrocodone 10 mg-acetaminophen 1 tablet PO QID PRN Pain 10/07/19 07/22/22 325 mg tablet insulin aspart U-100 100 unit/mL 70 unit subcut BID 10/07/19 07/22/22 (3 mL) subcutaneous pen (Novolog Flexpen U-100 Insulin aspart) insulin glargine 100 unit/mL (3 120 unit subcut BID 10/07/19 07/22/22 mL) subcutaneous pen (Basaglar KwikPen U-100 Insulin) lisinopril 40 mg tablet 40 mg PO DAILY 10/07/19 07/22/22 metformin 500 mg tablet 1,000 mg PO BID 10/07/19 07/22/22 montelukast 10 mg tablet 10 mg PO DAILY 10/07/19 07/22/22 rosuvastatin 40 mg tablet 40 mg PO HS 10/07/19 07/22/22 aspirin 325 mg tablet 325 mg PO DAILY 12/09/19 07/22/22 Allergies Allergy/AdvReac Type Severity Reaction Status Date / Time cyclobenzaprine AdvReac Mild Cramping Verified 12/10/19 11:11 of the Muscles Review of Systems Review of Systems: All systems reviewed & are unremarkable except as noted in HPI and below Cardiovascular: Cardiovascular: Reports as per HPI Respiratory: Respiratory: Reports as per HPI Gastrointestinal: Gastrointestinal: Reports as per HPI PMF Past Medical History Medical History (Updated 07/22/22 @ 18:08 by Cleveland Mccauley MD) Depression Diabetes Diabetic neuropathy Hypercholesterolemia Hypertension Surgical History Surgical History S/P CABG x 3 Family History Family History Mother , mother age 77 Diabetes mellitus Father , father at age 78 Diabetes mellitus Acute myocardial infarction Sibling History of blood clots Chronic obstructive pulmonary disease Hypertension Cancer Sibling Cerebrovascular accident Social History Social History (Reviewed 12/10/19 @ 09:05 by Shannan Calvert
[2022-07-22 15:42] LABS: Basophils Absolute Auto 0.04 K/mm3 (0.00-0.10); Basophils Percent Auto 0.3 % (0.0-1.0); Eosinophils Absolute Auto 0.28 K/mm3 (0.02-0.50); Hematocrit 42.4 % (40.0-54.0); Hemoglobin 13.9 g/dL (14.0-18.0); Immature Granulocyte Absolute 0.08 K/mm3 (0.00-0.00); Immature Granulocyte Percent A 0.6 % (0.0-0.0); Lymphocytes Absolute Auto 1.87 K/mm3 (1.10-4.50); Lymphocytes Percent Auto 13.5 % (18.0-42.0); Mean Corpuscular HGB Conc 32.8 g/dL (32.0-36.0); Mean Corpuscular Hemoglobin 26.9 pg (27.0-31.0); Mean Platelet Volume 10.8 fl (8.7-11.0); Monocytes Absolute Auto 1.07 K/mm3 (0.10-0.90); Monocytes Percent Auto 7.7 % (2.0-11.0); Neutrophils Absolute Auto 10.5 K/mm3 (1.7-7.2); Neutrophils Percent Auto 75.9 % (50.0-70.0); Platelet Count Result 320 K/mm3 (150-420); Red Blood Count 5.17 M/mm3 (4.70-6.10); Red Cell Distribution Width 13.4 % (11.6-14.4); White Blood Count 13.9 K/mm3 (4.8-10.8)
[2022-07-22 16:00] LABS: CRP 1.7 mg/dL (0.0-0.9)
[2022-07-22 16:04] LABS: Prothrombin Time 10.9 Seconds (9.50-12.10)
[2022-07-22 16:08] LABS: Troponin I 4.9 ng/L (0.00-60.4)
[2022-07-22 16:12] LABS: Alanine Aminotransferase 24 U/L (16-63); Albumin Level 4.4 g/dL (3.4-5.0); Alkaline Phosphatase 78 U/L (46-116); Anion Gap 11 mmol/L (8-16); Aspartate Amino Transferase 14 U/L (15-37); Bilirubin,Total 0.4 mg/dL (0.00-1.00); Blood Urea Nitrogen 15 mg/dL (7-18); Calcium 9.9 mg/dL (8.5-10.1); Carbon Dioxide 24 mmol/L (21-32); Chloride 97 mmol/L (98-108); Estimated Glomerular Filt Rate > 60; Glucose 308 mg/dL (70-99); Osmolality Calculated 286 mOsm/kg (285-295); Potassium 3.3 mmol/L (3.5-5.1); Sodium 132 mmol/L (136-145); Thyroid Stimulating Hormone 1.43 uIU/mL (0.36-3.74); Total Protein 8.1 g/dL (6.4-8.2)
--- NOTE | 2022-07-22 16:16 | ECG_ITS ---
Measurements Intervals [place] Rate: 101 P: 6 TN: 187 QRS: -29 QRSD: 100 T: 95 QT: 331 QTc: 429 Interpretive Statements SINUS TACHYCARDIA BORDERLINE LEFT AXIS DEVIATION [QRS AXIS < -20] NONSPECIFIC T-WAVE ABNORMALITY ABNORMAL EKG Electronically Signed On 07-23-2022 9:52:47 CDT by Fareed Ramirez M.D.
[2022-07-22 16:29] LABS: NT Pro B Type Natriuretic Pept 26 pg/mL (0-125)
[2022-07-22 17:32] VITALS: BP 104/74; PULSE 95; RESP 18; TEMP 36.4; O2SAT 97
[2022-07-22 18:17] VITALS: BP 100/65; PULSE 73; RESP 18; TEMP 36.4; O2SAT 98
[2022-07-22 18:21] LABS: Troponin I 6.7 ng/L (0.00-60.4)
== END 2022-07-22 18:17 | disposition left against medical advice (07) ==
PROVIDERS: Emergency Provider Emergency Medicine; PCP Internal Medicine
DX: I20.9 Angina pectoris, unspecified (principal); E11.9 Type 2 diabetes mellitus without complications; E78.00 Pure hypercholesterolemia, unspecified; I10 Essential (primary) hypertension; Z79.899 Other long term (current) drug therapy; R06.02 Shortness of breath; Z87.891 Personal history of nicotine dependence
CPT/HCPCS: 36415; 80053; 83735; 83880; 84443; 84484; 85025; 85610; 86140; 93005; 99284; J1644

== ENCOUNTER 2022-10-22 12:08 | Outpatient (CLI) | payer MEDICARE, SELFPAY ==
[2022-10-22 13:00] LABS: Basophils Absolute Auto 0.04 K/mm3 (0.00-0.10); Basophils Percent Auto 0.6 % (0.0-1.0); Eosinophils Percent Auto 3.1 % (1.0-6.0); Hematocrit 39.2 % (40.0-54.0); Hemoglobin 12.8 g/dL (14.0-18.0); Immature Granulocyte Absolute 0.05 K/mm3 (0.00-0.00); Immature Granulocyte Percent A 0.8 % (0.0-0.0); Lymphocytes Absolute Auto 2.23 K/mm3 (1.10-4.50); Lymphocytes Percent Auto 35.1 % (18.0-42.0); Mean Corpuscular HGB Conc 32.7 g/dL (32.0-36.0); Mean Corpuscular Hemoglobin 27.6 pg (27.0-31.0); Mean Corpuscular Volume 84.5 fL (78.0-102.0); Mean Platelet Volume 11.1 fl (8.7-11.0); Monocytes Absolute Auto 0.64 K/mm3 (0.10-0.90); Monocytes Percent Auto 10.1 % (2.0-11.0); Neutrophils Absolute Auto 3.2 K/mm3 (1.7-7.2); Neutrophils Percent Auto 50.3 % (50.0-70.0); Platelet Count Result 291 K/mm3 (150-420); Red Blood Count 4.64 M/mm3 (4.70-6.10); Red Cell Distribution Width 13.2 % (11.6-14.4); White Blood Count 6.4 K/mm3 (4.8-10.8)
[2022-10-22 13:05] LABS: Appearance Urine Clear (Clear); Bilirubin Urine Negative (Negative); Blood Urine Negative (Negative); Glucose Urine UA 3+ (Negative); Ketones Urine Negative (Negative); Leukocyte Esterase Ur Negative (Negative); Nitrate Urine Negative (Negative); Protein Urine Negative (Negative); Urobilinogen Urine 0.2 mg/dL (0.2-1.0)
[2022-10-22 13:10] LABS: Add Urine Microscopic? YES; Bacteria Urine None seen /hpf; Color Urine Light Yellow (Yellow); RBC Urine 0-2 /hpf (0-2); Squamous Epithelial Cell Urine Rare /hpf (Few); WBC Urine 0-3 /hpf (0-3)
[2022-10-22 13:11] LABS: Hemoglobin A1C 11.5 % (<5.7)
[2022-10-22 13:32] LABS: Alanine Aminotransferase 23 U/L (16-63); Albumin Level 4.2 g/dL (3.4-5.0); Alkaline Phosphatase 89 U/L (46-116); Anion Gap 9 mmol/L (8-16); Aspartate Amino Transferase 14 U/L (15-37); Bilirubin,Total 0.2 mg/dL (0.00-1.00); Blood Urea Nitrogen 10 mg/dL (7-18); Calcium 9.9 mg/dL (8.5-10.1); Carbon Dioxide 29 mmol/L (21-32); Chloride 97 mmol/L (98-108); Cholesterol 333 mg/dL (0-200); Estimated Glomerular Filt Rate > 60; Glucose 371 mg/dL (70-99); HDL Direct 39 mg/dL (40-60); Osmolality Calculated 294 mOsm/kg (285-295); Potassium 3.8 mmol/L (3.5-5.1); Sodium 135 mmol/L (136-145); Thyroid Stimulating Hormone 5.81 uIU/mL (0.36-3.74); Total Protein 7.8 g/dL (6.4-8.2)
[2022-10-22 14:08] LABS: LDL Cholesterol Calculated 94 mg/dL (<130); Triglycerides > 1000 mg/dL (0-150)
== END 2022-10-22 12:09 | disposition home or self-care (01) ==
LOC: CHSLAB 12:10
PROVIDERS: PCP Internal Medicine; Visit Provider Internal Medicine
DX: E78.5 Hyperlipidemia, unspecified (principal); I10 Essential (primary) hypertension; E11.65 Type 2 diabetes mellitus with hyperglycemia
CPT/HCPCS: 36415; 80053; 80061; 81001; 83036; 84443; 85025

== ENCOUNTER 2023-01-30 12:45 | Outpatient (CLI) | payer MEDICARE, SELFPAY ==
[2023-01-30 13:00] LABS: Appearance Urine Clear (Clear); Basophils Absolute Auto 0.03 K/mm3 (0.00-0.10); Basophils Percent Auto 0.5 % (0.0-1.0); Bilirubin Urine Negative (Negative); Blood Urine Negative (Negative); Color Urine Light Yellow (Yellow); Eosinophils Absolute Auto 0.18 K/mm3 (0.02-0.50); Eosinophils Percent Auto 3.1 % (1.0-6.0); Glucose Urine UA 3+ (Negative); Hematocrit 34.4 % (40.0-54.0); Hemoglobin 11.2 g/dL (14.0-18.0); Immature Granulocyte Absolute 0.08 K/mm3 (0.00-0.00); Immature Granulocyte Percent A 1.4 % (0.0-0.0); Ketones Urine Negative (Negative); Leukocyte Esterase Ur Negative LEU/UL (Negative); Lymphocytes Absolute Auto 1.98 K/mm3 (1.10-4.50); Lymphocytes Percent Auto 34.1 % (18.0-42.0); Mean Corpuscular HGB Conc 32.6 g/dL (32.0-36.0); Mean Corpuscular Hemoglobin 27.2 pg (27.0-31.0); Mean Corpuscular Volume 83.5 fL (78.0-102.0); Mean Platelet Volume 10.9 fl (8.7-11.0); Monocytes Absolute Auto 0.54 K/mm3 (0.10-0.90); Monocytes Percent Auto 9.3 % (2.0-11.0); Neutrophils Percent Auto 51.6 % (50.0-70.0); Nitrate Urine Negative (Negative); Platelet Count Result 261 K/mm3 (150-420); Protein Urine Negative (Negative); Red Blood Count 4.12 M/mm3 (4.70-6.10); Red Cell Distribution Width 13.1 % (11.6-14.4); Specific Grav Ur <= 1.005 (1.010-1.020); Urobilinogen Urine 0.2 mg/dL (0.2-1.0); White Blood Count 5.8 K/mm3 (4.8-10.8); pH Urine 5.5 (5.0-8.0)
[2023-01-30 13:27] LABS: Add Urine Microscopic? YES; Bacteria Urine None seen /hpf; RBC Urine None seen /hpf (0-2); WBC Urine None seen /hpf (0-3)
[2023-01-30 13:52] LABS: Alanine Aminotransferase 12 U/L (16-63); Albumin Level 3.5 g/dL (3.4-5.0); Alkaline Phosphatase 94 U/L (46-116); Anion Gap 10 mmol/L (8-16); Aspartate Amino Transferase 17 U/L (15-37); Bilirubin,Total 0.3 mg/dL (0.00-1.00); Blood Urea Nitrogen 12 mg/dL (7-18); Calcium 9.1 mg/dL (8.5-10.1); Carbon Dioxide 25 mmol/L (21-32); Chloride 90 mmol/L (98-108); Cholesterol 129 mg/dL (0-200); Creatine Kinase 128 U/L (39-308); Estimated Glomerular Filt Rate > 60; Ferritin 132 ng/mL (26-388); Free T3 2.13 pg/mL (2.18-3.98); Free T4 Free Thyroxine 1.06 ng/dL (0.76-1.46); HDL Direct 33 mg/dL (40-60); Iron 61 ug/dL (65-175); Potassium 4.5 mmol/L (3.5-5.1); Sodium 125 mmol/L (136-145); Thyroid Stimulating Hormone 3.63 uIU/mL (0.36-3.74)
[2023-01-30 14:01] LABS: Hemoglobin A1C > 16.0 % (<5.7)
[2023-01-30 14:02] LABS: LDL Cholesterol Calculated -25 mg/dL (<130); Triglycerides 604 mg/dL (0-150)
[2023-01-30 14:09] LABS: Osmolality Calculated 299 mOsm/kg (285-295)
[2023-01-30 14:10] LABS: Glucose > 800 mg/dL (70-99)
[2023-01-30 14:11] LABS: LDL Cholesterol Direct 33 mg/dL (0-130)
== END 2023-01-30 12:46 | disposition home or self-care (01) ==
PROVIDERS: PCP Internal Medicine; Visit Provider Internal Medicine
DX: E11.49 Type 2 diabetes mellitus with other diabetic neurological complication (principal); D50.9 Iron deficiency anemia, unspecified; E78.2 Mixed hyperlipidemia; N39.0 Urinary tract infection, site not specified
CPT/HCPCS: 36415; 80053; 80061; 81001; 82550; 82728; 83036; 83540; 83721; 84439; 84443; 84481; 85025

== ENCOUNTER 2023-03-01 17:21 | Outpatient (CLI) | payer MEDICARE, MEDICAID, SELFPAY ==
--- NOTE | ~2023-03-01 | XR_ITS ---
EXAMINATION: XR lumbar spine 2-3V DATE: 03/01/2023 18:03 INDICATION: Low back pain TECHNIQUE: Anteroposterior and lateral views of the lumbar spine, and cone-down lateral view of the l umbosacral junction were obtained. COMPARISON: 03/11/2008 FINDINGS: There is an acute appearing compression fracture of L1 with approximately 30% loss of anter ior vertebral body height. The remaining lumbar vertebral body heights are normal. The intervertebral disc spaces are maintained. Bone alignment is normal. There is calcified atherosclerosis of the aort a. IMPRESSION: 1. Acute-appearing L1 compression fracture with approximately 30% loss of anterior vertebral body hei t. Reviewed, dictated and finalized at location L. IMPRESSION: 1. Acute-appearing L1 compression fracture with approximately 30% loss of anter ior vertebral body height.
== END 2023-03-01 17:22 | disposition home or self-care (01) ==
LOC: CHSIMG 17:23
PROVIDERS: PCP Internal Medicine; Visit Provider Internal Medicine
DX: S32.018A Other fracture of first lumbar vertebra, initial encounter for closed fracture (principal); M54.50 Low back pain, unspecified
CPT/HCPCS: 72100

== ENCOUNTER 2023-03-27 16:12 | Outpatient (CLI) | payer MEDICARE, MEDICAID, SELFPAY ==
--- NOTE | ~2023-03-27 | MR_ITS ---
MRI of the lumbar spine Clinical History: Acute L1 fracture Technique: Axial T2-weighted images, and sagittal T1-weighted, T2-weighted, and T2 fat-sat images wer e acquired. COMPARISON: 05/07/2014 Findings: There is acute compression fracture of L1, with moderate loss of height, and T1 hypointense signal and hyperintense marrow edema on fluid sensitive sequences. No other fracture or subluxation seen. No other significant bone marrow signal abnormality seen. At L1-L2, there is mild facet joint arthropathy. No significant disc bulge or herniation. No spinal c anal stenosis or neural foraminal narrowing. At L2-L3, there is minimal disc bulge with moderate facet arthropathy. No spinal canal stenosis or ne ural foraminal narrowing. L3-L4, there is diffuse disc bulge and moderate to advanced facet arthropathy. No spinal canal stenos is or definite neural foraminal narrowing. At L4-L5, there is mild diffuse disc bulge with mild facet arthropathy. No spinal canal stenosis or d efinite neural foraminal narrowing. L5-S1, there is no disc bulge or herniation. There is moderate to advanced facet arthropathy bilatera lly. No spinal canal stenosis or definite neural foraminal narrowing. Paravertebral soft tissues are unremarkable. Impression: Acute moderate L1 compression fracture, as detailed above. Minimal degenerative changes, as above. Reviewed, dictated and finalized at [facility]. Impression: Acute moderate L1 compression fracture, as detailed above. Minimal degenerative changes, as above.
== END 2023-03-27 16:13 | disposition home or self-care (01) ==
LOC: ANHIMG 16:15
PROVIDERS: PCP Internal Medicine; Visit Provider Internal Medicine
DX: S32.019A Unspecified fracture of first lumbar vertebra, initial encounter for closed fracture (principal); X58.XXXA Exposure to other specified factors, initial encounter
CPT/HCPCS: 72148

== ENCOUNTER 2023-04-27 18:16 | Outpatient (CLI) | payer MEDICARE, MEDICAID, SELFPAY ==
[2023-04-27 18:38] LABS: Appearance Urine Clear (Clear); Bilirubin Urine Negative (Negative); Blood Urine Negative (Negative); Color Urine Light Yellow (Yellow); Glucose Urine UA 3+ (Negative); Hematocrit 37.2 % (40.0-54.0); Ketones Urine Negative (Negative); Leukocyte Esterase Ur Negative LEU/UL (Negative); Mean Corpuscular HGB Conc 32.3 g/dL (32.0-36.0); Mean Corpuscular Hemoglobin 27.2 pg (27.0-31.0); Mean Corpuscular Volume 84.4 fL (78.0-102.0); Mean Platelet Volume 10.6 fl (8.7-11.0); Nitrate Urine Negative (Negative); Platelet Count Result 251 K/mm3 (150-420); Protein Urine Negative (Negative); Red Blood Count 4.41 M/mm3 (4.70-6.10); Red Cell Distribution Width 13.3 % (11.6-14.4); Specific Grav Ur <= 1.005 (1.010-1.020); Urobilinogen Urine 0.2 mg/dL (0.2-1.0); White Blood Count 6.2 K/mm3 (4.8-10.8); pH Urine 5.5 (5.0-8.0)
[2023-04-27 18:52] LABS: Add Urine Microscopic? YES; Bacteria Urine None seen /hpf; RBC Urine 0-2 /hpf (0-2); Squamous Epithelial Cell Urine None seen /hpf (Few); WBC Urine 0-3 /hpf (0-3)
[2023-04-27 18:58] LABS: Hemoglobin A1C 12.8 % (<5.7)
[2023-04-27 19:21] LABS: Alanine Aminotransferase 31 U/L (16-63); Albumin Level 4.1 g/dL (3.4-5.0); Alkaline Phosphatase 82 U/L (46-116); Anion Gap 11 mmol/L (8-16); Aspartate Amino Transferase 21 U/L (15-37); Bilirubin,Total 0.2 mg/dL (0.00-1.00); Blood Urea Nitrogen 10 mg/dL (7-18); Calcium 9.8 mg/dL (8.5-10.1); Carbon Dioxide 25 mmol/L (21-32); Chloride 97 mmol/L (98-108); Cholesterol 132 mg/dL (0-200); Estimated Glomerular Filt Rate 60; HDL Direct 39 mg/dL (40-60); LDL Cholesterol Calculated -2 mg/dL (<130); Potassium 4.3 mmol/L (3.5-5.1); Sodium 133 mmol/L (136-145); Thyroid Stimulating Hormone 2.84 uIU/mL (0.36-3.74); Total Protein 7.1 g/dL (6.4-8.2); Triglycerides 475 mg/dL (0-150)
[2023-04-27 19:34] LABS: Glucose > 400 mg/dL (70-99); Osmolality Calculated 292 mOsm/kg (285-295)
[2023-04-27 20:14] LABS: LDL Cholesterol Direct 43 mg/dL (0-130)
== END 2023-04-27 18:17 | disposition home or self-care (01) ==
LOC: CHSLAB 18:20
PROVIDERS: PCP Internal Medicine; Visit Provider Internal Medicine
DX: E11.65 Type 2 diabetes mellitus with hyperglycemia (principal); E78.5 Hyperlipidemia, unspecified; I10 Essential (primary) hypertension; R53.82 Chronic fatigue, unspecified
CPT/HCPCS: 36415; 80053; 80061; 81001; 83036; 83721; 84443; 85027

== ENCOUNTER 2023-08-01 14:51 | Outpatient (CLI) | payer MEDICARE, SELFPAY ==
[2023-08-01 15:21] LABS: Basophils Absolute Auto 0.04 K/mm3 (0.00-0.10); Basophils Percent Auto 0.6 % (0.0-1.0); Eosinophils Absolute Auto 0.13 K/mm3 (0.02-0.50); Eosinophils Percent Auto 2.1 % (1.0-6.0); Hematocrit 38.8 % (40.0-54.0); Hemoglobin 12.4 g/dL (14.0-18.0); Immature Granulocyte Absolute 0.04 K/mm3 (0.00-0.00); Immature Granulocyte Percent A 0.6 % (0.0-0.0); Lymphocytes Absolute Auto 1.56 K/mm3 (1.10-4.50); Lymphocytes Percent Auto 24.8 % (18.0-42.0); Mean Corpuscular Hemoglobin 26.9 pg (27.0-31.0); Mean Corpuscular Volume 84.2 fL (78.0-102.0); Mean Platelet Volume 10.9 fl (8.7-11.0); Monocytes Absolute Auto 0.51 K/mm3 (0.10-0.90); Monocytes Percent Auto 8.1 % (2.0-11.0); Neutrophils Percent Auto 63.8 % (50.0-70.0); Platelet Count Result 246 K/mm3 (150-420); Red Blood Count 4.61 M/mm3 (4.70-6.10); Red Cell Distribution Width 13.1 % (11.6-14.4); White Blood Count 6.3 K/mm3 (4.8-10.8)
[2023-08-01 15:46] LABS: Alanine Aminotransferase 18 U/L (16-63); Albumin Level 3.9 g/dL (3.4-5.0); Alkaline Phosphatase 86 U/L (46-116); Anion Gap 7 mmol/L (8-16); Aspartate Amino Transferase 11 U/L (15-37); Bilirubin,Total 0.4 mg/dL (0.00-1.00); Blood Urea Nitrogen 15 mg/dL (7-18); Calcium 9.5 mg/dL (8.5-10.1); Carbon Dioxide 28 mmol/L (21-32); Chloride 99 mmol/L (98-108); Cholesterol 150 mg/dL (0-200); Estimated Glomerular Filt Rate > 60; HDL Direct 47 mg/dL (40-60); LDL Cholesterol Calculated 41 mg/dL (<130); Osmolality Calculated 299 mOsm/kg (285-295); Potassium 4.7 mmol/L (3.5-5.1); Sodium 134 mmol/L (136-145); Thyroid Stimulating Hormone 1.71 uIU/mL (0.36-3.74); Total Protein 7.2 g/dL (6.4-8.2); Triglycerides 309 mg/dL (0-150)
[2023-08-01 15:48] LABS: Appearance Urine Clear (Clear); Bilirubin Urine Negative (Negative); Blood Urine Negative (Negative); Color Urine Light Yellow (Yellow); Glucose Urine UA 3+ (Negative); Ketones Urine Negative (Negative); Leukocyte Esterase Ur Negative LEU/UL (Negative); Nitrate Urine Negative (Negative); Protein Urine Negative (Negative); Specific Grav Ur <= 1.005 (1.010-1.020); Urobilinogen Urine 0.2 mg/dL (0.2-1.0)
[2023-08-01 15:50] LABS: Add Urine Microscopic? NO; Glucose 470 mg/dL (70-99)
[2023-08-01 16:38] LABS: Hemoglobin A1C > 13.7 % (<5.7)
== END 2023-08-01 14:52 | disposition home or self-care (01) ==
LOC: CHSLAB 14:55
PROVIDERS: PCP Internal Medicine; Visit Provider Internal Medicine
DX: E11.65 Type 2 diabetes mellitus with hyperglycemia (principal); I10 Essential (primary) hypertension; E78.5 Hyperlipidemia, unspecified
CPT/HCPCS: 36415; 80053; 80061; 81003; 83036; 84443; 85025

== ENCOUNTER 2023-11-01 13:51 | Outpatient (CLI) | payer MEDICARE, SELFPAY ==
[2023-11-01 14:06] LABS: Basophils Absolute Auto 0.04 K/mm3 (0.00-0.10); Basophils Percent Auto 0.7 % (0.0-1.0); Eosinophils Absolute Auto 0.11 K/mm3 (0.02-0.50); Eosinophils Percent Auto 1.8 % (1.0-6.0); Hematocrit 39.7 % (40.0-54.0); Hemoglobin 12.8 g/dL (14.0-18.0); Immature Granulocyte Absolute 0.06 K/mm3 (0.00-0.00); Lymphocytes Absolute Auto 1.39 K/mm3 (1.10-4.50); Lymphocytes Percent Auto 22.8 % (18.0-42.0); Mean Corpuscular HGB Conc 32.2 g/dL (32.0-36.0); Mean Corpuscular Volume 83.8 fL (78.0-102.0); Mean Platelet Volume 10.8 fl (8.7-11.0); Monocytes Absolute Auto 0.55 K/mm3 (0.10-0.90); Neutrophils Percent Auto 64.7 % (50.0-70.0); Platelet Count Result 236 K/mm3 (150-420); Red Blood Count 4.74 M/mm3 (4.70-6.10); Red Cell Distribution Width 13.2 % (11.6-14.4); White Blood Count 6.1 K/mm3 (4.8-10.8)
[2023-11-01 14:07] LABS: Appearance Urine Clear (Clear); Bilirubin Urine Negative (Negative); Blood Urine Negative (Negative); Color Urine Light Yellow (Yellow); Glucose Urine UA 3+ (Negative); Ketones Urine Negative (Negative); Leukocyte Esterase Ur Negative LEU/UL (Negative); Nitrate Urine Negative (Negative); Protein Urine Negative (Negative); Urobilinogen Urine 0.2 mg/dL (0.2-1.0); pH Urine 5.5 (5.0-8.0)
[2023-11-01 14:27] LABS: Add Urine Microscopic? NO; Bacteria Urine Trace /hpf; RBC Urine None seen /hpf (0-2); Squamous Epithelial Cell Urine Rare /hpf (Few); WBC Urine None seen /hpf (0-3)
[2023-11-01 14:49] LABS: Alanine Aminotransferase 22 U/L (16-63); Albumin Level 4.2 g/dL (3.4-5.0); Alkaline Phosphatase 100 U/L (46-116); Anion Gap 7 mmol/L (8-16); Aspartate Amino Transferase 11 U/L (15-37); Bilirubin,Total 0.3 mg/dL (0.00-1.00); Blood Urea Nitrogen 12 mg/dL (7-18); Calcium 9.8 mg/dL (8.5-10.1); Carbon Dioxide 29 mmol/L (21-32); Chloride 95 mmol/L (98-108); Cholesterol 139 mg/dL (0-200); Estimated Glomerular Filt Rate > 60; HDL Direct 42 mg/dL (40-60); LDL Cholesterol Calculated 24 mg/dL (<130); Potassium 4.4 mmol/L (3.5-5.1); Sodium 131 mmol/L (136-145); Thyroid Stimulating Hormone 1.27 uIU/mL (0.36-3.74); Total Protein 7.6 g/dL (6.4-8.2); Triglycerides 366 mg/dL (0-150)
[2023-11-01 14:51] LABS: Hemoglobin A1C > 13.7 % (<5.7)
[2023-11-01 14:55] LABS: Glucose 589 mg/dL (70-99); Osmolality Calculated 298 mOsm/kg (285-295)
== END 2023-11-01 13:52 | disposition home or self-care (01) ==
LOC: CHSLAB 13:54
PROVIDERS: PCP Internal Medicine; Visit Provider Internal Medicine
DX: E11.65 Type 2 diabetes mellitus with hyperglycemia (principal); I10 Essential (primary) hypertension; E78.5 Hyperlipidemia, unspecified
CPT/HCPCS: 36415; 80053; 80061; 81003; 83036; 84443; 85025

== ENCOUNTER 2023-11-07 13:51 | Outpatient (CLI) | payer MEDICARE, MEDICAID, SELFPAY ==
--- NOTE | ~2023-11-07 | XR_ITS ---
EXAM: XR foot LT min 3V DATE: 11/07/2023 15:03 HISTORY: 1st digit swelling X 2 days - pt. is a diabetic. . COMPARISON: 08/02/2013. . FINDINGS: Normal mineralization. No fracture or dislocation. No lytic or blastic lesion. Mild scatte red degenerative changes. Achilles and plantar enthesopathy. No erosion or periosteal change. Soft ti ssue swelling of the great toe. Within normal limits. IMPRESSION: No acute osseous finding in the left foot. 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
== END 2023-11-07 13:52 | disposition home or self-care (01) ==
LOC: CHSIMG 13:53
PROVIDERS: PCP Internal Medicine; Visit Provider Internal Medicine
DX: M79.89 Other specified soft tissue disorders (principal); E11.9 Type 2 diabetes mellitus without complications
CPT/HCPCS: 73630

== ENCOUNTER 2023-12-07 14:05 | Outpatient (CLI) | payer MEDICARE, MEDICAID, SELFPAY ==
--- NOTE | ~2023-12-07 | MR_ITS ---
MRI of the left foot CLINICAL HISTORY: Cellulitis of left toe TECHNIQUE: Axial T1-weighted, T2 fat-sat, and T1 fat-sat images, sagittal T1-weighted and STIR images , and coronal T1-weighted and T2 fat-sat images were performed. Following intravenous administration of 18 cc MultiHance gadolinium, T1-weighted fat-sat imaging was performed in the axial, coronal, and sagittal planes. FINDINGS: There is probable focal loss of cortical integrity and focal destructive change at the medi al aspect of the distal phalanx of the great toe, compatible with focal osteomyelitis. Remaining osse ous structures appear intact. Joint spaces appear intact. There is susceptibility artifact about the first MTP joint region, which could relate to prior surgery or possibly presence of small metallic fo reign bodies. Flexor and extensor tendons are grossly intact. No definite intermetatarsal bursitis or Ayala's neur jerri. There is diffuse edematous change of the intrinsic plantar musculature of the foot. Plantar fasc ia grossly intact. No abscess evident. There is mild dorsal subcutaneous soft tissue edema. There is soft tissue swelling of the great toe. IMPRESSION: Probable focal osteomyelitis of the medial aspect of the distal phalanx of the great toe. Susceptibility artifact about the first MTP joint region. Correlate for small metallic foreign bodies or prior surgery in this region. Soft tissue swelling of the great toe. Reviewed, dictated and finalized at [facility]. LE TENDER IMPRESSION: Probable focal osteomyelitis of the medial aspect of the distal phalanx of the great toe. Susceptibility artifact about the first MTP joint region. Correlate for small m etallic foreign bodies or prior surgery in this region. Soft tissue swelling of the great toe.
== END 2023-12-07 14:06 | disposition home or self-care (01) ==
LOC: ANHIMG 14:06
PROVIDERS: PCP Internal Medicine; Visit Provider Internal Medicine
DX: L03.032 Cellulitis of left toe (principal); M79.89 Other specified soft tissue disorders
CPT/HCPCS: 73720; A9577

== ENCOUNTER 2024-01-31 11:03 | Outpatient (CLI) | payer MEDICARE, SELFPAY ==
[2024-01-31 11:18] LABS: Appearance Urine Clear (Clear); Bilirubin Urine Negative (Negative); Blood Urine Negative (Negative); Color Urine Light Yellow (Yellow); Glucose Urine UA 3+ (Negative); Hematocrit 37.5 % (40.0-54.0); Hemoglobin 12.4 g/dL (14.0-18.0); Ketones Urine Negative (Negative); Leukocyte Esterase Ur Negative LEU/UL (Negative); Mean Corpuscular HGB Conc 33.1 g/dL (32.0-36.0); Mean Corpuscular Hemoglobin 26.4 pg (27.0-31.0); Mean Platelet Volume 10.2 fl (8.7-11.0); Nitrate Urine Negative (Negative); Platelet Count Result 283 K/mm3 (150-420); Protein Urine Negative (Negative); Red Blood Count 4.69 M/mm3 (4.70-6.10); Red Cell Distribution Width 13.5 % (11.6-14.4); Urobilinogen Urine 0.2 mg/dL (0.2-1.0); White Blood Count 7.5 K/mm3 (4.8-10.8); pH Urine 5.5 (5.0-8.0)
[2024-01-31 11:24] LABS: Add Urine Microscopic? YES; Bacteria Urine Trace /hpf; RBC Urine None seen /hpf (0-2); Squamous Epithelial Cell Urine Rare /hpf (Few); WBC Urine None seen /hpf (0-3)
[2024-01-31 11:40] LABS: Band Neutrophils Percent 0 % (0-6); Basophils Absolute Manual 0.07 K/mm3 (0-0.1); Basophils Percent Manual 1 % (0-1); Eosinophils Absolute Manual 0.15 K/mm3 (0.02-0.5); Eosinophils Percent Manual 2 % (1-6); Lymphocytes Absolute Manual 3.07 K/mm3 (1.1-4.5); Lymphocytes Percent Manual 41 % (18-44); Metamyelocytes Percent 1 %; Monocytes Percent Manual 4 % (3-9); Myelocytes Percent 1 %; Neutrophils Absolute Manual 3.75 K/mm3 (1.3-6.7); Neutrophils Percent Manual 50 % (46-73); Platelet Estimate Adequate (Adequate); Total Cells Counted 100
[2024-01-31 12:03] LABS: Hemoglobin A1C > 13.7 % (<5.7)
[2024-01-31 12:07] LABS: Alanine Aminotransferase 29 U/L (16-63); Albumin Level 3.6 g/dL (3.4-5.0); Alkaline Phosphatase 103 U/L (46-116); Anion Gap 11 mmol/L (8-16); Aspartate Amino Transferase 22 U/L (15-37); Bilirubin,Total 0.2 mg/dL (0.00-1.00); Blood Urea Nitrogen 7 mg/dL (7-18); Calcium 8.9 mg/dL (8.5-10.1); Carbon Dioxide 26 mmol/L (21-32); Chloride 96 mmol/L (98-108); Cholesterol 142 mg/dL (0-200); Estimated Glomerular Filt Rate > 60; Glucose 472 mg/dL (70-99); HDL Direct 37 mg/dL (40-60); Osmolality Calculated 295 mOsm/kg (285-295); Potassium 4.3 mmol/L (3.5-5.1); Sodium 133 mmol/L (136-145); Thyroid Stimulating Hormone 1.98 uIU/mL (0.36-3.74)
[2024-01-31 12:08] LABS: LDL Cholesterol Calculated -33 mg/dL (<130); LDL Cholesterol Direct 41 mg/dL (0-130); Triglycerides 692 mg/dL (0-150)
== END 2024-01-31 11:04 | disposition home or self-care (01) ==
LOC: CHSLAB 11:06
PROVIDERS: PCP Internal Medicine; Visit Provider Internal Medicine
DX: E11.65 Type 2 diabetes mellitus with hyperglycemia (principal); I10 Essential (primary) hypertension; E78.5 Hyperlipidemia, unspecified
CPT/HCPCS: 36415; 80053; 80061; 81001; 83036; 83721; 84443; 85025

== ENCOUNTER 2024-05-08 13:52 | Outpatient (CLI) | payer MEDICARE, SELFPAY ==
[2024-05-08 14:16] LABS: Hematocrit 39.9 % (40.0-54.0); Hemoglobin 13.1 g/dL (14.0-18.0); Mean Corpuscular HGB Conc 32.8 g/dL (32-36); Mean Corpuscular Hemoglobin 26.1 pg (27.0-31.0); Mean Corpuscular Volume 79.6 fL (78.0-102.0); Mean Platelet Volume 11.1 fl (8.7-11.0); Platelet Count Result 248 K/mm3 (150-420); Red Blood Count 5.01 M/mm3 (4.70-6.10); Red Cell Distribution Width 13.3 % (11.6-14.4); White Blood Count 6.5 K/mm3 (4.8-10.8)
[2024-05-08 14:48] LABS: Appearance Urine Clear (Clear); Bilirubin Urine Negative (Negative); Blood Urine Negative (Negative); Color Urine Light Yellow (Yellow); Glucose Urine UA 3+ (Negative); Ketones Urine Negative (Negative); Leukocyte Esterase Ur Negative (Negative); Nitrate Urine Negative (Negative); Protein Urine Negative (Negative); Specific Grav Ur <= 1.005 (1.010-1.020); Urobilinogen Urine 0.2 mg/dL (0.2-1.0)
[2024-05-08 14:50] LABS: Hemoglobin A1C > 13.7 % (<5.7)
[2024-05-08 15:07] LABS: Add Urine Microscopic? YES; Bacteria Urine None seen /hpf; RBC Urine None seen /hpf (0-2); Squamous Epithelial Cell Urine Rare /hpf (Few); WBC Urine None seen /hpf (0-3)
[2024-05-08 15:15] LABS: Alanine Aminotransferase 28 U/L (16-63); Albumin Level 3.8 g/dL (3.4-5.0); Alkaline Phosphatase 126 U/L (46-116); Anion Gap 10 mmol/L (4-12); Aspartate Amino Transferase 20 U/L (15-37); Bilirubin,Total 0.3 mg/dL (0.00-1.00); Blood Urea Nitrogen 7 mg/dL (7-18); CRP 0.6 mg/dL (0.0-0.9); Carbon Dioxide 28 mmol/L (21-32); Chloride 94 mmol/L (98-108); Cholesterol 147 mg/dL (0-200); Estimated Glomerular Filt Rate > 60; HDL Direct 39 mg/dL (40-60); Potassium 4.5 mmol/L (3.5-5.1); Sodium 132 mmol/L (136-145); Thyroid Stimulating Hormone 2.39 uIU/mL (0.36-3.74); Total Protein 7.3 g/dL (6.4-8.2)
[2024-05-08 15:23] LABS: Glucose 535 mg/dL (70-99); LDL Cholesterol Calculated -13 mg/dL (<130); Osmolality Calculated 296 mOsm/kg (285-295); Triglycerides 604 mg/dL (0-150)
[2024-05-08 15:24] LABS: LDL Cholesterol Direct 40 mg/dL (0-130)
== END 2024-05-08 13:53 | disposition home or self-care (01) ==
LOC: CHSLAB 13:54
PROVIDERS: PCP Internal Medicine; Visit Provider Internal Medicine
DX: E11.9 Type 2 diabetes mellitus without complications (principal); L97.509 Non-pressure chronic ulcer of other part of unspecified foot with unspecified severity
CPT/HCPCS: 36415; 80053; 80061; 81001; 83036; 83721; 84443; 85027; 86140

== ENCOUNTER 2024-07-21 01:43 | Emergency (ER) | payer MEDICARE, MEDICAID, SELFPAY ==
[2024-07-21 01:50] VITALS: BP 166/86; PULSE 116; RESP 20; TEMP 37.5; O2SAT 95
--- NOTE | 2024-07-21 02:02 | ED.WOUNDLAC ---
HPI - Wound/Laceration General Chief Complaint: Wound/Laceration Stated Complaint: Lower Extremity Problem Source: patient Mode of arrival: ambulatory Limitations: no limitations History of Present Illness HPI narrative: this is a 63-year-old male with some right leg warmth redness and tenderness and swelling for the last 2 weeks with a low-grade fever no shortness of breath no chest pain does have history of diabetes. Onset (ago): week(s) Extremity Location: Right: lower leg ( warm tender and swollen) Related Data Home Medications Medication Instructions Recorded Confirmed carvedilol 6.25 mg tablet 6.25 mg PO BID 10/07/19 07/21/24 duloxetine 30 mg capsule,delayed 30 mg PO BID 10/07/19 07/21/24 release ezetimibe 10 mg tablet 10 mg PO DAILY 10/07/19 07/21/24 fenofibrate nanocrystallized 145 145 mg PO HS 10/07/19 07/21/24 mg tablet hydrocodone 10 mg-acetaminophen 1 tablet PO QID PRN Pain 10/07/19 07/21/24 325 mg tablet insulin aspart U-100 100 unit/mL 70 unit subcut BID 10/07/19 07/21/24 (3 mL) subcutaneous pen (Novolog FlexPen U-100 Insulin aspart) insulin glargine 100 unit/mL (3 120 unit subcut BID 10/07/19 07/21/24 mL) subcutaneous pen (Basaglar KwikPen U-100 Insulin) lisinopril 40 mg tablet 40 mg PO DAILY 10/07/19 07/21/24 metformin 500 mg tablet 1,000 mg PO BID 10/07/19 07/21/24 montelukast 10 mg tablet 10 mg PO DAILY 10/07/19 07/21/24 rosuvastatin 40 mg tablet 40 mg PO HS 10/07/19 07/21/24 aspirin 325 mg tablet 325 mg PO DAILY 12/09/19 07/21/24 omeprazole 40 mg capsule,delayed 40 mg PO DAILY 07/21/24 07/21/24 release pioglitazone 15 mg tablet 15 mg PO DAILY 07/21/24 07/21/24 Allergies Allergy/AdvReac Type Severity Reaction Status Date / Time cyclobenzaprine AdvReac Mild Cramping Verified 12/10/19 11:11 of the Muscles Review of Systems Review of Systems: All systems reviewed & are unremarkable except as noted in HPI and below PMFSH Past Medical History Medical History (Updated 07/21/24 @ 02:05 by Good Hsu MD) Depression Diabetes Diabetic neuropathy Hypercholesterolemia Hypertension Surgical History Surgical History S/P CABG x 3 Family History Family History Mother , mother age 77 Diabetes mellitus Father , father at age 78 Diabetes mellitus Acute myocardial infarction Sibling History of blood clots Chronic obstructive pulmonary disease Hypertension Cancer Sibling Cerebrovascular accident Social History Social History Smoking packs per day: 4 Smoking cigarettes per day: 80.0 Years smoked: 11 Smoking pack-years: 44.00 Smoking status: Former smoker Tobacco type: cigarettes Alcohol intake: never Substance use: never Substance use type: does not use Gender identity (if verbalized by the patient): Male Spiritual care concerns: No Agree to blood products: Yes Exam Const: General: healthy appearing and no acute distress Nutritional Appearance: well nourished Orientation/consciousness: patient oriented x3 Resp: Effort & Inspection: normal respiratory effort Auscultation: clear to auscultation bilaterally Cardio: Rate: regular rate Rhythm: regular rhythm GI: GI Palp: Yes Soft to palpation Auscultation: normal bowel sounds Skin: Other: Warm red tender right lower foot with swelling Extrem: General: edema Course Course Emergency Course: dose of 1g IM ceftriaxone administered along with 60mg IM Toradol for pain relief. Vital Signs Vital signs: Vital Signs Temperature 37.5 C 07/21/24 01:50 Pulse Rate 116 H 07/21/24 01:50 Respiratory Rate 20 07/21/24 01:50 Blood Pressure 166/86 H 07/21/24 01:50 Pulse Oximetry 95 07/21/24 01:50 Oxygen Delivery Room Air 07/21/24 01:50 Tempera
[2024-07-21] MEDS: cefTRIAXone 1 GM, LIDOCAINE HCL 1% LOCAL INJ 2.1 ML IM (02:13)
[2024-07-21] MEDS: KETOROLAC (*BKC) 60 MG/2 ML VIAL IM (02:14)
[2024-07-21 02:29] VITALS: BP 158/86; PULSE 100; RESP 18; TEMP 37.2; O2SAT 95
== END 2024-07-21 02:29 | disposition home or self-care (01) ==
PROVIDERS: Emergency Provider Emergency Medicine; PCP Internal Medicine
DX: L03.115 Cellulitis of right lower limb (principal); E11.9 Type 2 diabetes mellitus without complications; I10 Essential (primary) hypertension; Z79.4 Long term (current) use of insulin; Z79.899 Other long term (current) drug therapy; Z79.891 Long term (current) use of opiate analgesic; Z79.82 Long term (current) use of aspirin; Z87.891 Personal history of nicotine dependence
CPT/HCPCS: 96372; 99284; J0696; J1885

== ENCOUNTER 2024-08-08 15:52 | Outpatient (CLI) | payer MEDICARE, MEDICAID, SELFPAY ==
[2024-08-08 16:30] LABS: Basophils Absolute Auto 0.04 K/mm3 (0.00-0.10); Basophils Percent Auto 0.6 % (0.0-1.0); Eosinophils Absolute Auto 0.07 K/mm3 (0.02-0.50); Eosinophils Percent Auto 1.1 % (1.0-6.0); Hematocrit 32.9 % (40.0-54.0); Hemoglobin 10.8 g/dL (14.0-18.0); Immature Granulocyte Absolute 0.06 K/mm3 (0.00-0.00); Immature Granulocyte Percent A 0.9 % (0.0-0.0); Lymphocytes Absolute Auto 1.36 K/mm3 (1.10-4.50); Lymphocytes Percent Auto 20.9 % (18.0-42.0); Mean Corpuscular HGB Conc 32.8 g/dL (32-36); Mean Corpuscular Hemoglobin 26.5 pg (27.0-31.0); Mean Corpuscular Volume 80.6 fL (78.0-102.0); Mean Platelet Volume 11.1 fl (8.7-11.0); Monocytes Absolute Auto 0.62 K/mm3 (0.10-0.90); Monocytes Percent Auto 9.5 % (2.0-11.0); Neutrophils Absolute Auto 4.37 K/mm3 (1.70-7.20); Platelet Count Result 315 K/mm3 (150-420); Red Blood Count 4.08 M/mm3 (4.70-6.10); Red Cell Distribution Width 13.7 % (11.6-14.4); White Blood Count 6.5 K/mm3 (4.8-10.8)
[2024-08-08 18:01] LABS: Alanine Aminotransferase 18 U/L (16-63); Alkaline Phosphatase 185 U/L (46-116); Anion Gap 9 mmol/L (4-12); Aspartate Amino Transferase 14 U/L (15-37); Bilirubin,Total 0.3 mg/dL (0.00-1.00); Blood Urea Nitrogen 8 mg/dL (7-18); Calcium 9.4 mg/dL (8.5-10.1); Carbon Dioxide 25 mmol/L (21-32); Chloride 90 mmol/L (98-108); Estimated Glomerular Filt Rate > 60; Potassium 4.7 mmol/L (3.5-5.1); Sodium 124 mmol/L (136-145); Thyroid Stimulating Hormone 1.87 uIU/mL (0.36-3.74); Total Protein 6.7 g/dL (6.4-8.2)
[2024-08-08 18:12] LABS: Glucose 726 mg/dL (70-99); Osmolality Calculated 291 mOsm/kg (285-295)
[2024-08-09 06:31] LABS: Hemoglobin A1C > 13.7 % (<5.7)
[2024-08-09 06:58] LABS: Cholesterol 141 mg/dL (0-200); Triglycerides 774 mg/dL (0-150)
[2024-08-09 06:59] LABS: HDL Direct 40 mg/dL (40-60); LDL Cholesterol Calculated -54 mg/dL (<130); LDL Cholesterol Direct 40 mg/dL (0-130)
== END 2024-08-08 15:53 | disposition home or self-care (01) ==
PROVIDERS: PCP Internal Medicine; Visit Provider Internal Medicine
DX: E11.9 Type 2 diabetes mellitus without complications (principal); I10 Essential (primary) hypertension; R78.2 Finding of cocaine in blood
CPT/HCPCS: 36415; 80053; 80061; 83036; 83721; 84443; 85025

== ENCOUNTER 2024-11-08 14:05 | Outpatient (CLI) | payer MEDICARE, SELFPAY ==
[2024-11-08 14:23] LABS: Basophils Absolute Auto 0.04 K/mm3 (0.00-0.10); Basophils Percent Auto 0.6 % (0.0-1.0); Eosinophils Absolute Auto 0.18 K/mm3 (0.02-0.50); Eosinophils Percent Auto 2.6 % (1.0-6.0); Hematocrit 39.5 % (37.0-46.0); Hemoglobin 12.8 g/dL (12.4-15.3); Immature Granulocyte Absolute 0.04 K/mm3 (0.00-0.00); Immature Granulocyte Percent A 0.6 % (0.0-0.0); Lymphocytes Absolute Auto 1.39 K/mm3 (1.10-4.50); Lymphocytes Percent Auto 19.9 % (18.0-42.0); Mean Corpuscular HGB Conc 32.4 g/dL (32-36); Mean Corpuscular Hemoglobin 24.9 pg (27.0-31.0); Mean Corpuscular Volume 76.8 fL (78.0-102.0); Mean Platelet Volume 11.4 fl (8.7-11.0); Monocytes Absolute Auto 0.63 K/mm3 (0.10-0.90); Neutrophils Absolute Auto 4.69 K/mm3 (1.70-7.20); Neutrophils Percent Auto 67.3 % (50.0-70.0); Platelet Count Result 265 K/mm3 (150-420); Red Blood Count 5.14 M/mm3 (4.70-6.10); Red Cell Distribution Width 13.5 % (11.6-14.4)
[2024-11-08 14:32] LABS: Add Urine Microscopic? NO; Appearance Urine Clear (Clear); Bilirubin Urine Negative (Negative); Blood Urine Negative (Negative); Color Urine Light Yellow (Yellow); Glucose Urine UA 3+ (Negative); Ketones Urine Negative (Negative); Leukocyte Esterase Ur Negative LEU/UL (Negative); Nitrate Urine Negative (Negative); Protein Urine Negative (Negative); Urobilinogen Urine 0.2 mg/dL (0.2-1.0); pH Urine 5.5 (5.0-8.0)
[2024-11-08 14:46] LABS: Hemoglobin A1C 11.3 % (<5.7)
[2024-11-08 15:35] LABS: Alanine Aminotransferase 21 U/L (16-63); Alkaline Phosphatase 94 U/L (46-116); Anion Gap 8 mmol/L (4-12); Aspartate Amino Transferase 17 U/L (15-37); Bilirubin,Total 0.3 mg/dL (0.00-1.00); Blood Urea Nitrogen 10 mg/dL (7-18); Calcium 9.8 mg/dL (8.5-10.1); Carbon Dioxide 28 mmol/L (21-32); Chloride 99 mmol/L (98-108); Cholesterol 137 mg/dL (0-200); Estimated Glomerular Filt Rate > 60; HDL Direct 46 mg/dL (40-60); LDL Cholesterol Calculated 43 mg/dL (<130); Osmolality Calculated 300 mOsm/kg (285-295); Potassium 4.9 mmol/L (3.5-5.1); Sodium 135 mmol/L (136-145); Thyroid Stimulating Hormone 1.59 uIU/mL (0.36-3.74); Total Protein 7.5 g/dL (6.4-8.2); Triglycerides 240 mg/dL (0-150)
[2024-11-08 15:38] LABS: Glucose 483 mg/dL (70-99)
== END 2024-11-08 14:06 | disposition home or self-care (01) ==
LOC: CHSLAB 14:08
PROVIDERS: PCP Internal Medicine; Visit Provider Internal Medicine
DX: E11.65 Type 2 diabetes mellitus with hyperglycemia (principal); E78.5 Hyperlipidemia, unspecified; I10 Essential (primary) hypertension
CPT/HCPCS: 36415; 80053; 80061; 81003; 83036; 84443; 85025

== ENCOUNTER 2025-02-06 13:53 | Outpatient (CLI) | payer MEDICARE, SELFPAY ==
[2025-02-06 14:20] LABS: Basophils Absolute Auto 0.05 K/mm3 (0.00-0.10); Basophils Percent Auto 0.7 % (0.0-1.0); Eosinophils Absolute Auto 0.09 K/mm3 (0.02-0.50); Eosinophils Percent Auto 1.3 % (1.0-6.0); Hematocrit 39.4 % (37.0-46.0); Immature Granulocyte Absolute 0.05 K/mm3 (0.00-0.00); Immature Granulocyte Percent A 0.7 % (0.0-0.0); Lymphocytes Absolute Auto 1.19 K/mm3 (1.10-4.50); Lymphocytes Percent Auto 17.8 % (18.0-42.0); Mean Corpuscular Hemoglobin 25.4 pg (27.0-31.0); Mean Corpuscular Volume 77.1 fL (78.0-102.0); Mean Platelet Volume 10.9 fl (8.7-11.0); Monocytes Absolute Auto 0.63 K/mm3 (0.10-0.90); Monocytes Percent Auto 9.4 % (2.0-11.0); Neutrophils Absolute Auto 4.66 K/mm3 (1.70-7.20); Neutrophils Percent Auto 70.1 % (50.0-70.0); Platelet Count Result 263 K/mm3 (150-420); Red Blood Count 5.11 M/mm3 (4.70-6.10); Red Cell Distribution Width 14.5 % (11.6-14.4); White Blood Count 6.7 K/mm3 (4.8-10.8)
[2025-02-06 14:32] LABS: Add Urine Microscopic? NO; Appearance Urine Clear (Clear); Bilirubin Urine Negative (Negative); Blood Urine Negative (Negative); Color Urine Light Yellow (Yellow); Glucose Urine UA 3+ (Negative); Ketones Urine Negative (Negative); Leukocyte Esterase Ur Negative LEU/UL (Negative); Nitrate Urine Negative (Negative); Protein Urine Negative (Negative); Specific Grav Ur <= 1.005 (1.010-1.020); Urobilinogen Urine 0.2 mg/dL (0.2-1.0); pH Urine 5.5 (5.0-8.0)
[2025-02-06 15:13] LABS: Hemoglobin A1C > 13.4 % (<5.7)
[2025-02-06 15:15] LABS: Alanine Aminotransferase 30 U/L (16-63); Albumin Level 4.4 g/dL (3.4-5.0); Alkaline Phosphatase 183 U/L (46-116); Anion Gap 12 mmol/L (4-12); Aspartate Amino Transferase 15 U/L (15-37); Bilirubin,Total 0.4 mg/dL (0.00-1.00); Blood Urea Nitrogen 9 mg/dL (7-18); Calcium 10.7 mg/dL (8.5-10.1); Carbon Dioxide 27 mmol/L (21-32); Chloride 90 mmol/L (98-108); Cholesterol 133 mg/dL (0-200); Estimated Glomerular Filt Rate > 60; HDL Direct 57 mg/dL (40-60); LDL Cholesterol Calculated 30 mg/dL (<130); Potassium 4.9 mmol/L (3.5-5.1); Sodium 129 mmol/L (136-145); Thyroid Stimulating Hormone 2.58 uIU/mL (0.36-3.74); Triglycerides 230 mg/dL (0-150)
[2025-02-06 15:31] LABS: Glucose > 800 mg/dL (70-99); Osmolality Calculated 306 mOsm/kg (285-295)
--- OUTSIDE RECORDS SUMMARY | 2025-02-06 15:48 | XMS_ITS | Clinical Summary ---
Author Organization [facility] Address [address] [place] [address] Phone Care Team Providers Care Pharmaceutical Scientist Name Role Phone Bo Cummings MD Primary Care Provider [phone] Allergies Active Allergy Reactions Criticality Noted Date Comments Cyclobenzaprine Other (see Comments) High 03/15/2024 MUSCLE SPASM Medications aspirin 325 MG Tablet Take 325 mg by mouth daily. Active carvedilol (COREG) 6.25 MG Tablet Take 6.25 mg by mouth 2 times daily. Active DULoxetine (CYMBALTA) [address] Particles Take 30 mg by mouth 2 times daily. Active ezetimibe (ZETIA) 10 MG Tablet Take 10 mg by mouth daily. Active fenofibrate (TRICOR) 145 MG Tablet Take 145 mg by mouth nightly. Active HYDROcodone-jasmin taminophen (NORCO) 10-325 MG Tablet Take 1 Tablet by mouth every 6 hours as needed. Active lisinopril (PRINIVIL, ZESTRIL) 40 MG Tablet Take 40 mg by mouth daily. Active metFORMIN (GLUCOPHAGE-XR) 500 MG TABLET SR 24 HR Take 1,000 mg by mouth in the morning and at bedtime. This RX is for Metformin SR. Active montelukast (SINGULAIR) 10 MG Tablet Take 10 mg by mouth daily. Active nitroGLYCERIN (NITROSTAT) 0.4 MG SL Tablet 0.4 mg by Sublingual route as needed for Chest pain. MAY REPEAT ONCE IN 10-15 MINUTES Active insulin aspart (NovoLOG FlexPen) 100 UNIT/ML Solution Pen-injector 160 Units by Subcutaneous route in the morning and at bedtime. IN THE MORNING AND BEFORE BED Active omeprazole (PriLOSEC) 40 MG CAPSULE DELAYED RELEASE Take 40 mg by mouth daily. Active pioglitazone (ACTOS) 15 MG Tablet Take 15 mg by mouth daily. Active rosuvastatin (CRESTOR) 40 MG Tablet Take 40 mg by mouth daily. Active insulin glargine (Basaglar KwikPen) 100 UNIT/ML Solution Pen-injector 120 Units by Subcutaneous route in the morning and at bedtime. WITH LUNCH AND DINNER Active Family History Medical History Relation Name Comments Cancer Father Heart Attack Father Hypertension Father Osteoarthritis Father Stroke Father Diabetes Mother Hypertension Mother Osteoarthritis Mother Relation Name Status Comments Father Mother Social History Tobacco Use Types Packs/Day Years Used Date Smoking Tobacco: Former Cigarettes 2.5 29 1 972 - 2000 Smokeless Tobacco: Never Tobacco Cessation:Counseling Given: Not Answered Alcohol Use Standard Drinks/Week Comments Never 0 (1 standard drink = 0.6 oz pur e alcohol) Sex and Gender Information Value Date Recorded Sex Assigned at Not on file Legal Sex Male 3:20 PM CDT Gender Identity Male 03/26/2024 11:55 AM CDT Sexual Orientation Not on file Last Filed Vital Signs Vital Sign Reading Time Taken Comments Blood Pressure 151/83 04/02/2024 12:17 PM CDT Pulse 88 04/02/2024 12:17 PM CDT Temperature 36.1 C (96.9 F) 04/02/2024 12:17 PM CDT Respiratory Rate 18 04/02/2024 12:17 PM CDT Oxygen Saturation 98% 04/02/2024 12:17 PM CDT Inhaled Oxygen Concentration - - Weight 93 kg (205 lb) 03/15/2024 11:00 AM CDT Height 175.3 cm (5' 9 ) 03/15/2024 11:00 AM CDT Body Mass Index 30.27 03/15/2024 11:00 AM CDT Plan of Treatment Health Maintenance Due Date Last Done Comments Hepatitis C Virus (HCV) Screening 1960 TdaP Immunization 1959 Colonoscopy 2004 Colorectal Cancer Screening 2004 Cologuard 2009 Immunochemical Fecal Occult Blood 2009 Zoster Immunization (1 of 2) 2009 PSA Discussion 2014 Respiratory Syncytial Virus (RSV) Immunization (Adult) (1 - Risk 60-74 years 1-dose series) 2019 Pneumococcal Immunization (50+ years) (2 of 2 - PCV) 10/16/2019 10/16/2018 Influenza Immunization (#1) 07/28/202409/28, 10/15/2021, 10/16/2019, Additional history exists SARS-COV-2 Immunization ( season) 2024 11/12/2021, 03/12/2021, 02/09/2021 AAA Screening Ultrasound 2024 Pneumococcal Immunization Combined Discontinued 10/16/2018 Hepatitis B Immunization Aged Out No longer eligible based on patient's age to complete this topic Meningococcal Immunization (ACWY) Aged Out No longer eligible based on patient's age to complete this topic Rotavirus Immunization Aged Out No lo nger eligible based on patient's age to complete this topic Insurance MEDICARE MEDICAID [place] Care Teams Pharmaceutical Scientist Relationship Specialty Start Date End Date Bo Cummings MD [address] [place] [address] PCP - General Internal Medicine 04/02/24
--- OUTSIDE RECORDS SUMMARY | 2025-02-06 15:48 | XMS_ITS | Encounter Summary ---
Author Organization [facility] Address [facility] [place] [address] Care Team Providers Care Sap Bw Consultant Name Role Phone Bo Cummings MD Primary Care Provider [phone] Roxana Bruno MD Unavailable Encounter Details Date Type Department Care Team (Late st Contact Info) Description 09/09/2022 Hospital Orders Only [facility] Lab Pre/Post [address] [place], [place] [id number] Betito Desouza MD Social History Tobacco Use Types Packs/Day Years Used Date Smoking Tobacco: Former Cigarettes 4 15 0 02/17/1985 - 02/18/2000 Smokeless Tobacco: Never Alcohol Use Standard Drinks/Week Comments No 0 (1 standard drink = 0.6 oz pur e alcohol) Sex and Gender Information Value Date Recorded Sex Assigned at Male 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 No / Unsure 08/18/2022 3:17 PM CDT documented as of this encounter Plan of Treatment Upcoming Encounters Date Type Department Care Team (Late st Contact Info) Description 08/08/2025 1:45 PM CDT Office Visit [facility] [place] [address] Roxana Bruno MD [address] [place], [place] [id number] documented as of this encounter Visit Diagnoses Not on filedocumented in this encounter Care Teams Sap Bw Consultant Relationship Specialty Start Date End Date Bo Cummings MD [address] [place] [address] PCP - General INTERNAL MEDICINE 08/18/22 Roxana Bruno MD [address] [place] [address] Consulting Physician CARDIOVASCULAR DISEASE 12/12/24 documented as of this encounter
--- OUTSIDE RECORDS SUMMARY | 2025-02-06 15:48 | XMS_ITS | Referral Summary ---
Author Organization [facility] Address [address] [place] [address] Care Team Providers Care Surfacing Machine Operator Name Role Phone Bo Cummings MD Primary Care Provider Encounters Date Type Department Care Team Description 12/23/2024 Telephone [facility] - [facility] [address] [place] [id number] Holly Liriano MA 11/12/2024 11:30 AM RUBBER VULCANIZING MACHINE OPERATOR Office Visit [facility] - [facility] [address] [place] [id number] Aylin Loredo DO Fungal sinusitis (Primary Dx); Chronic maxillary sinusitis from Last 3 Months Allergies Active Allergy Reactions Criticality Noted Date Comments Cyclobenzaprine Other (See comments) Medium 05/21/2024 Increases muscles spasms patient stated Medications FreeStyle Caitlyn 3 [facility] as directed 4 Active FreeStyle Caitlyn 3 Sensor device CHANGE SENSOR EVERY 14 DAYS (MED B ONLY COVERS FOR INSULIN DEPENDENT) [address] (CYMBALTA) 30 mg capsule Take 1 capsule (30 mg total) by mouth 2 (two) times a day 4 Active ezetimibe (ZETIA) 10 mg tablet Take 1 tablet (10 mg total) by mouth daily 4 Active fenofibrate nanocrystallized (TRICOR) 145 mg tablet Take 1 tablet (145 mg total) by mouth nightly at bedtime. 4 Active HYDROcodone-acetamin ophen (NORCO) 10-325 mg per tablet Take 1 tablet by mouth 4 (four) times a day as needed for pain 4 Active metFORMIN XR (GLUCOPHAGE XR) 500 mg 24 hr tablet Take 2 tablets (1,000 mg total) by mouth 2 (two) times a day 4 Active montelukast (SINGULAIR) 10 mg tablet Take 1 tablet (10 mg total) by mouth daily 4 Active omeprazole (PriLOSEC) 40 mg capsule Take 1 capsule (40 mg total) by mouth daily 4 Active rosuvastatin (CRESTOR) 40 mg tablet Take 1 tablet (40 mg total) by mouth daily 4 Active insulin glargine 100 unit/mL (3 mL) pen for injection Inject 160 Units under the skin 2 (two) times a day Active insulin aspart (NovoLOG) 100 unit/mL (3 mL) pen for injection Inject 120 Units under the skin 2 (two) times a day with lunch and dinner At noon and dinner Active aspirin 325 mg tablet Take 1 tablet (325 mg total) by mouth daily Active lisinopriL (PRINIVIL,ZESTRIL) 40 mg tablet Take 0.5 tablets (20 mg total) by mouth daily Active pioglitazone (ACTOS) 15 mg tabletIndications:ty pe 2 diabetes mellitus Take 1 tablet (15 mg total) by mouth daily Active carvediloL (COREG) 12.5 mg tablet Take 1 tablet (12.5 mg total) by mouth 2 (two) times a day with meals Active Active Problems Problem Noted Date Diagnosed Date Fungal sinusitis 11/12/2024 Assessment & Plan (11/12/2024 12:04 PM RUBBER VULCANIZING MACHINE OPERATOR): 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 Chronic maxillary sinusitis 11/12/2024 Assessment & Plan (11/12/2024 12:04 PM RUBBER VULCANIZING MACHINE OPERATOR): 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 Syncope, cardiogenic 09/17/2024 Hyperglycemia 08/30/2024 Diabetes mellitus due to und erlying condition with hyperglycemia, with long-term current use of insulin 08/30/2024 Diabetic ulcer of right midf oot associated with diabetes mellitus of other type, unspecified ulcer stage 08/29/2024 Chronic osteomyelitis of toe, left 05/17/2024 Cellulitis of great toe, left 05/17/2024 Immunizations Immunization Administration Dates Next Due Influenza, Unspecified 08/29/2024(Deferred: Rubina ent Refused) Social History Tobacco Use Types Packs/Day Years Used Date Smoking Tobacco: Former Cigarettes Smokeless Tobacco: Never Tobacco Cessation:Counseling Given: Not Answered [facility] Utilities Answer Date Recorded In the past 12 months has th e electric, gas, oil, or water company threatened to shut off services in your home? No 08/30/2024 Social Connection and Isolation Panel [NHANES] A nswer Date Recorded In a typical week, how many times do you talk on the phone with family, friends, or neighbors? Once a week 08/30/2024 How often do you get together with friends or re latives? Once a week 08/30/2024 How often do you attend mu-ism or alevism serv ices? Never 08/30/2024 Do you belong to any clubs o r organizations such as mu-ism groups, unions, fraternal or athletic groups, or school groups? No 08/30/2024 How often do you attend meet ings of the clubs or organizations you belong to? Never 08/30/2024 Are you , , di vorced, , never , or living with a partner? 08/30/2024 AUDIT-C Answer Date Recorded Frequency of Alcohol Consumption Not on file 08/29/2024 Q2: How many drinks containi ng alcohol do you have on a typical day when you are drinking? Patient does not drink Frequency of Binge Drinking Not on file 01/2024 Overall Financial Resource Strain (CARDIA) Answe r Date Recorded How hard is it for you to pa y for the very basics like food, housing, medical care, and heating? Not very hard 08/30/2024 Hunger Vital Sign Answer Date Recorded Within the past 12 months, y ou worried that your food would run out before you got the money to buy more. Never true 08/30/20 24 Within the past 12 months, t he food you bought just didn't last and you didn't have money to get more. Never true 08/30/2024 PRAPARE - Transportation Answer Date Re corded In the past 12 months, has l ack of transportation kept you from medical appointments or from getting medications? No 02/2024 In the past 12 months, has l ack of transportation kept you from meetings, work, or from getting things needed for daily living? No 08/30/2024 Housing Stability Vital Sign Answer [place] Recorded In the last 12 months, was t here a time when you were not able to pay the mortgage or rent on time? No 08/30/2024 In the past 12 months, how m any times have you moved where you were living? 0 08/30/2024 At any time in the past 12 m [facility], were you homeless or living in a half-way (including now)? No 08/30/2024 Personal Safety Answer Date Recorded Have you ever been in or are you currently in a harmful physical or emotional relationship or is someone making you feel afraid or unsafe? Denies 09/17/2024 Sex and Gender Information Value Date Recorded Sex Assigned at Not on file Legal Sex Male 11:28 AM RUBBER VULCANIZING MACHINE OPERATOR Gender Identity Not on file Sexual Orientation Not on file Last Filed Vital Signs Vital Sign Reading Time Taken Comments Blood Pressure 117/75 11/12/2024 11:39 AM RUBBER VULCANIZING MACHINE OPERATOR Pulse 87 11/12/2024 11:39 AM RUBBER VULCANIZING MACHINE OPERATOR Temperature 36.1 C (97 F) 10/17/2024 1:01 PM RUBBER VULCANIZING MACHINE OPERATOR Respiratory Rate 18 11/12/2024 11:39 AM RUBBER VULCANIZING MACHINE OPERATOR Oxygen Saturation 97% 11/12/2024 11:39 AM RUBBER VULCANIZING MACHINE OPERATOR Inhaled Oxygen Concentration - - Weight 94.3 kg (208 lb) 11/12/2024 11:39 AM RUBBER VULCANIZING MACHINE OPERATOR Height 175.3 cm (5' 9.02 ) 11/12/2024 11:[address] Body Mass Index 30.7 11/12/2024 11:39 AM RUBBER VULCANIZING MACHINE OPERATOR Plan of Treatment Not on file Procedures Procedure Name Priority Date/Time Associated Diagnosis Comments EGFR Routine 10/17/2024 1:35 PM RUBBER VULCANIZING MACHINE OPERATOR Other acute osteomyelitis of right foot (HCC) HEMOGLOBIN A1C Add-On 08/30/2024 3:22 AM CDT from Last 3 Months or Most Recently Relevant to Health Maintenance Results * eGFR (10/17/2024 1:35 PM RUBBER VULCANIZING MACHINE OPERATOR) eGFR >90 >=60 mL/min/1. 73 m2 Comment: Interpretive Data Reference Interval Normal >/= 90 mL/min/1.73m2 Mildly decreased* 60 - 89 mL/min/1.73m2 Mildly to moderately decreased 45 - 59 mL/min/1.73m2 Moderately to severely decreased 30 - 44 mL/min/1.73m2 Severely decreased 15 - 29 mL/min/1.73m2 Kidney Failure < 15 mL/min/1.73m2 *Relative to young adult level Estimated glomerular filtration rate is determined by the 2020 CKD-EPI equation recommended by the National Kidney Foundation (A Unifying Approach to GFR Estimation: Recommendations of the NKF-ASK Task Force on Reassessing the Inclusion of Race in Diagnosing Kidney Disease, JASN 2020). The CKD-EPI equation should not be used for patients with unstable renal function and has not been validated in children and those over 70. Current interpretive data was last reviewed 2021. Blood 10/17/2024 1:35 PM RUBBER VULCANIZING MACHINE OPERATOR 10/17/2024 3:49 PM RUBBER VULCANIZING MACHINE OPERATOR us Hollis Kim MD LAB BLOOD ORDERABLES Final Result [facility] ([place]) [address] [place] [address] * (ABNORMAL) Hemoglobin A1c (08/30/2024 3:22 AM CDT) Hgb A1C 15.8(H) 4.0 - 5.6 % Estimated Average Glucose 407 mg/dL [facility] ([place]) Comment: The ADA recommends reporting an estimated Average Glucose (eAG) with all Hemoglobin A1c results using the equation derived from a study of 507 normal and diabetic adults. Minority populations were underrepresented and children were not included. (Diabetes Care 31:9049-3127, 2008). The eAG is not equivalent to a fasting glucose. Blood 08/30/2024 3:22 AM CDT 08/30/2024 3:26 AM CDT us Sheela Lopez MD LAB BLOOD ORDERABLES Fin al Result [facility] ([place]) [address] [place] [address] from Last 3 Months or Most Recently Relevant to Health Maintenance Insurance MEDICARE [facility] MEDICARE [facility] Address: [address] [address] [place] [address] IDPA Advance Directives For more information, please contact: [phone] * Full Code (Latest Code Status on File) Date Activated Date Inactivated Comments 08/29/2024 3:00 PM 09/03/2024 8:37 PM Care Teams Surfacing Machine Operator Relationship Specialty Start Date End Date Bo Cummings MD PCP - General Internal Medicine 07/13/21
--- OUTSIDE RECORDS SUMMARY | 2025-02-06 15:48 | XMS_ITS | Clinical Summary ---
Author Organization [facility] Address [facility] [place] [address] Care Team Providers Care Manager It Training Name Role Phone Bo Cummings MD Primary Care Provider Roxana Michael MD Unavailable Allergies Active Allergy Reactions Criticality Noted Date Comments Cyclobenzaprine Hives Medium 05/06/2016 Medications aspirin 325 MG tablet Take 1 tablet (325 mg total) by mouth daily. 01/04/2006 Active rosuvastatin (CRESTOR) 40 MG tablet Take 1 tablet (40 mg total) by mouth nightly at bedtime. 10/17/2011 Active HYDROcodone-jasmin taminophen (NORCO) 10-325 MG tablet Take 1 tablet by mouth every 4 (four) hours as needed. 08/15/2011 Active metFORMIN 500 MG tablet Take 2 tablets (1,000 mg total) by mouth 2 (two) times a day. 1 02/13/2018 Active montelukast 10 MG tablet Take 1 tablet (10 mg total) by mouth daily. 3 01/09/2018 Active fenofibrate (TRICOR) 145 MG tablet Take 1 tablet (145 mg total) by mouth daily. 01/19/2012 Active ezetimibe (ZETIA) 10 MG tablet Take 1 tablet (10 mg total) by mouth daily. 08/07/2012 Active DULoxetine (CYMBALTA) 30 MG capsule Take 1 capsule (30 mg total) by mouth 2 (two) times daily. 08/05/2022 Active NOVOLOG FLEXPEN 100 UNIT/ML injection (PEN) Inject 180 Units into the skin 2 (two) times daily. 06/17/2022 Active OZEMPIC, 1 MG/DOSE, 4 MG/3ML Solution Pen-injector INJECT 1 MG UNDER THE SKIN WEEKLY 05/23/2022 Active omeprazole (PRILOSEC) 40 MG capsule Take 1 capsule (40 mg total) by mouth daily. 08/15/2022 Active nitroglycerin (NITROSTAT) 0.[address] 1 tablet (0.4 mg total) under the tongue. Active carvedilol (COREG) 12.5 MG tablet Take 1 tablet (12.5 mg total) by mouth 2 (two) times daily. 180 tablet 2 01/07/2025 Active Active Problems Problem Noted Date Diagnosed Date Hypoglycemia 02/17/2018 Coronary artery disease S/P CABG (coronary artery bypass graft) Benign essential HTN Hypercholesterolemia Encounters Date Type Department Care Team Description 02/03/2025 Telephone [facility] [address] [place] [address] Roxana Michael MD Reschedule 01/31/2025 2:59 PM LAUNDRY HOUSEKEEPER - 01/31/2025 11:59 PM LAUNDRY HOUSEKEEPER Hospital Encounter [facility] [address] [facility] [place] [address] Roxana Michael MD Discharge Disposition: Home or Self Care (Routine Discharge) 01/31/2025 Travel 01/15/2025 10:45 AM LAUNDRY HOUSEKEEPER Telephone [facility] [address] [place] [address] Roxana Michael MD Holter Monitor 01/08/2025 Telephone [facility] [address] [place] [address] Roxana Michael MD Information (Stress ) 01/07/2025 Telephone [facility] [address] [place] [address] Roxana Michael MD Schedule Test 01/07/2025 Telephone [facility] [address] [place] [address] Roxana Michael MD Schedule Test 01/06/2025 2:15 PM LAUNDRY HOUSEKEEPER Office Visit [facility] [address] [place] [address] Roxana Michael MD Heart Problem 01/06/2025 1:51 PM LAUNDRY HOUSEKEEPER - 01/06/2025 11:59 PM LAUNDRY HOUSEKEEPER Hospital Encounter [facility] [address] [facility] [place] [address] Roxana Michael MD Discharge Disposition: Home or Self Care (Routine Discharge) 01/06/2025 Travel 01/03/2025 Orders Only [facility] [address] [place] [address] Roxana Michael MD 01/03/2025 Telephone [facility] [address] [place], [place] [address] [phone] Roxana Michael MD Appointment Reminder 12/12/2024 Telephone [facility] [address] [place] [address] Roxana Michael MD Appointment Request from Last 3 Months Family History Medical History Relation Comments Diabetes Brother Diabetes Daughter Cancer Father Diabetes Father Heart Disease Father Diabetes Mother Diabetes Paternal Grandmother Relation Status Comments Brother Daughter Father Mother Alive Paternal Grandmother Social History Tobacco Use Types Packs/Day Years Used Date Smoking Tobacco: Former Cigarettes 4 23 0 02/17/1977 - 02/18/2000 Smokeless Tobacco: Never Tobacco Cessation:Counseling Given: Not Answered Alcohol Use Standard Drinks/Week Comments No 0 (1 standard drink = 0.6 oz pur e alcohol) Sex and Gender Information Value Date Recorded Sex Assigned at Male 01/06/2025 1:46 PM LAUNDRY HOUSEKEEPER Legal Sex Male 2:08 AM CDT Gender Identity Not on file Sexual Orientation Not on file Last Filed Vital Signs Vital Sign Reading Time Taken Comments Blood Pressure 109/68 01/06/2025 12:15 PM LAUNDRY HOUSEKEEPER Pulse 75 01/06/2025 12:15 PM LAUNDRY HOUSEKEEPER Temperature 36.6 C (97.9 F) 02/17/2018 5:00 PM CDT Respiratory Rate 16 01/06/2025 12:15 PM LAUNDRY HOUSEKEEPER Oxygen Saturation 99% 01/06/2025 12:15 PM LAUNDRY HOUSEKEEPER Inhaled Oxygen Concentration - - Weight 92.1 kg (203 lb) 01/06/2025 12:15 PM LAUNDRY HOUSEKEEPER Height 175.3 cm (5' 9 ) 01/06/2025 12:15 PM LAUNDRY HOUSEKEEPER Body Mass Index 29.98 01/06/2025 12:15 PM LAUNDRY HOUSEKEEPER Plan of Treatment Upcoming Encounters Date Type Department Care Team (Late st Contact Info) Description 08/08/2025 1:45 PM CDT Office Visit [facility] [place] [address] Roxana Michael MD [address] [place] [address] Health Maintenance Due Date Last Done Comments ASCVD Statin 1960 Colorectal Cancer Screening Colonoscopy (10 Years) 1960 Hepatitis C 1977 DTaP, Tdap and Td Vaccines (1 - Tdap) 1978 Zoster Vaccines (1 of 2) 2009 ASCVD LDL 04/17/2013 04/17/2012 RSV Immunization or 60+ Years (1 - Risk 60-74 years 1-dose series) 2019 Pneumococcal Vaccine: 65+ Years (2 of 2 - PCV) 10/16/2019 10/16/2018 Pneumococcal Vaccine: Pediatrics (0 to 5 Years) and At-Risk Patients (6 to 64 Years) (2 of 2 - PCV) 10/16/2019 10/16/2018 COVID-19 Vaccine ( season) 2024 11/12/2021, 03/12/2021, 02/09/2021 AAA SCREENING 2024 Influenza Adult (#1) 2024 10/15/2021, 10/16/2019, 10/16/2018, Additional history exists Meningococcal B Vaccine Aged Out No l onger eligible based on patient's age to complete this topic Meningococcal Vaccine Aged Out No dulce alison eligible based on patient's age to complete this topic RSV Immunizations Under 20 Months Aged Out No longer eligible based on patient's age to complete this topic Procedures Procedure Name Priority Date/Time Associated Diagnosis Comments USE ECHOCARDIOGRAM Routine 01/31/2025 4: 04 PM LAUNDRY HOUSEKEEPER Syncope, unspecified syncope type US CAROTID DUPLEX JATINDER Routine 01/31/2025 4:03 PM LAUNDRY HOUSEKEEPER Syncope, unspecified syncope type ECG 12-LEAD Routine 01/06/2025 2:00 PM LAUNDRY HOUSEKEEPER Coronary artery disease involving paimiut coronary artery of paimiut heart with unstable angina pectoris ([facility]) LIPID PANEL Routine 04/17/2012 12:00 AM CDT from Last 3 Months or Most Recently Relevant to Health Maintenance Results * USE ECHOCARDIOGRAM (01/31/2025 4:04 PM LAUNDRY HOUSEKEEPER) Anatomical Region Laterality Modality Cardiac Ultrasound 01/31/2025 3:09 PM LAUNDRY HOUSEKEEPER Narrative 02/02/2025 3:42 PM CDT Echocardiography Report Pat.Name: Jad Bennett Pat.ID: [id number] .Date: 01/31/2025 Refer.MD: Lexa, [facility] Exam Time: 3:09:00 PM Study Type:[facility] Height: 69 in Weight: 213 lb BSA: 2.12 m2 Age: 10 1960,64Y Sex: M Sonogrphr: Sf Pat. Stat.:Outpatient Reason for Study:Syncope, unspecified syncope type Procedures: Study performed at [facility], [place], [place] and interpreted by [facility]. 2D, M-mode, Doppler, Color Flow, Intraveneous saline contrast was used to help determine presence of intracardiac shunting. ++++++++++++++++++++++++++++++++++++ SUMMARY: ++++++++++++++++++++++++++++++++++++ The left ventricular size is normal. Estimated left ventricular ejection fraction is 55-60%. Left ventricular diastolic function is abnormal (grade 1 - impaired relaxation). The right ventricle size is normal. The right ventricular function is normal. The agitated saline injection showed no clear evidence of shunting into the left atrium, consistent with no patent foramen ovale. No evidence of pericardial effusion. There is trace mitral regurgitation. There is trace tricuspid regurgitation. ++++++++++++++++++++++++++++++++++++ FINDINGS: ++++++++++++++++++++++++++++++++++++ LV: The left ventricular size is normal. The left ventricular systolic function is normal. Estimated left ventricular ejection fraction is 55-60%. Left ventricular diastolic function is abnormal (grade 1 - impaired relaxation). RV: The right ventricle size is normal. The right ventricular function is normal. LA: Left atrial size is normal. RA: The right atrial size is normal. IAS: The agitated saline injection showed no clear evidence of shunting into the left atrium, consistent with no patent foramen ovale. ALANNA: No evidence of pericardial effusion. AO: Aorta is normal. SVn: Inferior vena cava is normal. AV: The aortic valve is trileaflet. There is no aortic stenosis. There is no evidence of aortic regurgitation. MV: The mitral valve is structurally normal. There is trace mitral regurgitation. PV: The pulmonic valve is normal There is trace pulmonic regurgitation TV: The tricuspid valve appears structurally normal. There is trace tricuspid regurgitation. <Electronic Signature> 02/02/2025 03:42 PM Roxana Michael M.D. Procedure Note Roxana Michael MD - 02/02/2025 Echocardiography Report Pat.Name: Jad Bennett Pat.ID: [id number] .Date: 01/31/2025 [facility]00 PM Study Type:[facility] Height: 69 in Weight: 213 lb BSA: 2.12 m2 Age: 10 1960,64Y Sex: M Sonogrphr: Stefani Pat. Stat.:Outpatient Reason for Study:Syncope, unspecified syncope type Procedures: Study performed at [facility], [place], [place] and interpreted by [facility]. 2D, M-mode, Doppler, Color Flow, Intraveneous saline contrast was used to help determine presence of intracardiac shunting. ++++++++++++++++++++++++++++++++++++ SUMMARY: ++++++++++++++++++++++++++++++++++++ The left ventricular size is normal. Estimated left ventricular ejection fraction is 55-60%. Left ventricular diastolic function is abnormal (grade 1 - impaired relaxation). The right ventricle size is normal. The right ventricular function is normal. The agitated saline injection showed no clear evidence of shunting into the left atrium, consistent with no patent foramen ovale. No evidence of pericardial effusion. There is trace mitral regurgitation. There is trace tricuspid regurgitation. ++++++++++++++++++++++++++++++++++++ FINDINGS: ++++++++++++++++++++++++++++++++++++ LV: The left ventricular size is normal. The left ventricular systolic function is normal. Estimated left ventricular ejection fraction is 55-60%. Left ventricular diastolic function is abnormal (grade 1 - impaired relaxation). RV: The right ventricle size is normal. The right ventricular function is normal. LA: Left atrial size is normal. RA: The right atrial size is normal. IAS: The agitated saline injection showed no clear evidence of shunting into the left atrium, consistent with no patent foramen ovale. ALANNA: No evidence of pericardial effusion. AO: Aorta is normal. SVn: Inferior vena cava is normal. AV: The aortic valve is trileaflet. There is no aortic stenosis. There is no evidence of aortic regurgitation. MV: The mitral valve is structurally normal. There is trace mitral regurgitation. PV: The pulmonic valve is normal There is trace pulmonic regurgitation TV: The tricuspid valve appears structurally normal. There is trace tricuspid regurgitation. <Electronic Signature> 02/02/2025 03:42 PM Roxana Michael M.D. Roxana Michael MD ECHO Final Result * US CAROTID DUPLEX JATINDER (01/31/2025 4:03 PM LAUNDRY HOUSEKEEPER) Anatomical Region Laterality Modality NA Ultrasound 01/31/2025 3:44 PM LAUNDRY HOUSEKEEPER Narrative 02/03/2025 7:19 PM CDT Outreach Carotid Ultrasound Vascular Report Pat.Name: Jda Bennett Pat.ID: [id number] .Date: 01/31/2025 [facility]: 3:44:00 PM Study Type:OUTREACH CAROTID SCAN BILATERAL Height: 69 in Age: 10 1960,64Y Sex: M Sonogrphr: Sf Pat. Stat.:Outpatient Reason for Study:Syncope, unspecified syncope type Procedures: Study performed at [place], [place] and interpreted by [facility]. ++++++++++++++++++++++++++++++++++++ FINDINGS: ++++++++++++++++++++++++++++++++++++ Rt ICA: 40-59% stenosis noted in the internal carotid artery. Mild/moderate heterogeneous plaque noted. Rt Vert: Normal antegrade vertebral flow. Lt ICA: 40-59% stenosis noted in the internal carotid artery. Moderate heterogeneous plaque noted. Lt Vert: Normal antegrade vertebral flow. ++++++++++++++++++++++++++++++++++++ MEASUREMENTS: ++++++++++++++++++++++++++++++++++++ DOPPLER Right Prox CCA Prox CCA PSV 90 cm/s Prox CCA EDV 17 cm/s Right Dist CCA Dist CCA PSV 77 cm/s Dist CCA EDV 20 cm/s Right Prox ICA Prox ICA PSV 75 cm/s Prox ICA EDV 21 cm/s Right Mid ICA Mid ICA PSV 95 cm/s Mid ICA EDV 30 cm/s Right Dist ICA Dist ICA PSV 106 cm/s Dist ICA EDV 36 cm/s Right Prox ECA Prox ECA PSV 130 cm/s Prox ECA EDV 17 cm/s Right Vertebral Vertebral PSV 61 cm/s Vertebral EDV 16 cm/s Right ICA/CCA RATIO ICA/CCA RATIO P 1.38 Left Prox CCA Prox CCA PSV 128 cm/s Prox CCA EDV 29 cm/s Left Mid CCA Mid CCA PSV 94 cm/s Mid CCA EDV 28 cm/s Left Dist CCA Dist CCA PSV 75 cm/s Dist CCA EDV 23 cm/s Left Prox ICA Prox ICA PSV 79 cm/s Prox ICA EDV 26 cm/s Left Mid ICA Mid ICA PSV 94 cm/s Mid ICA EDV 26 cm/s Left Dist ICA Dist ICA PSV 117 cm/s Dist ICA EDV 36 cm/s Left Prox ECA Prox ECA PSV 72 cm/s Prox ECA EDV 15 cm/s Left Vertebral Vertebral PSV 46 cm/s Vertebral EDV 12 cm/s Left ICA/CCA RATIO ICA/CCA RATIO P 1.56 <Electronic Signature> 02/03/2025 07:19 PM Roxana Michael M.D. Procedure Note Roxana Michael MD - 02/04/2025 Outreach Carotid Ultrasound Vascular Report Pat.Name: Jad Bennett Pat.ID: [id number] .Date: 01/31/2025 [facility]: 3:[facility]00 PM Study Type:OUTREACH CAROTID SCAN BILATERAL Height: 69 in Age: 10 1960,64Y Sex: M Sonogrphr: Sf Pat. Stat.:Outpatient Reason for Study:Syncope, unspecified syncope type Procedures: Study performed at [place], [place] and interpreted by [facility]. ++++++++++++++++++++++++++++++++++++ FINDINGS: ++++++++++++++++++++++++++++++++++++ Rt ICA: 40-59% stenosis noted in the internal carotid artery. Mild/moderate heterogeneous plaque noted. Rt Vert: Normal antegrade vertebral flow. Lt ICA: 40-59% stenosis noted in the internal carotid artery. Moderate heterogeneous plaque noted. Lt Vert: Normal antegrade vertebral flow. ++++++++++++++++++++++++++++++++++++ MEASUREMENTS: ++++++++++++++++++++++++++++++++++++ DOPPLER Right Prox CCA Prox CCA PSV 90 cm/s Prox CCA EDV 17 cm/s Right Dist CCA Dist CCA PSV 77 cm/s Dist CCA EDV 20 cm/s Right Prox ICA Prox ICA PSV 75 cm/s Prox ICA EDV 21 cm/s Right Mid ICA Mid ICA PSV 95 cm/s Mid ICA EDV 30 cm/s Right Dist ICA Dist ICA PSV 106 cm/s Dist ICA EDV 36 cm/s Right Prox ECA Prox ECA PSV 130 cm/s Prox ECA EDV 17 cm/s Right Vertebral Vertebral PSV 61 cm/s Vertebral EDV 16 cm/s Right ICA/CCA RATIO ICA/CCA RATIO P 1.38 Left Prox CCA Prox CCA PSV 128 cm/s Prox CCA EDV 29 cm/s Left Mid CCA Mid CCA PSV 94 cm/s Mid CCA EDV 28 cm/s Left Dist CCA Dist CCA PSV 75 cm/s Dist CCA EDV 23 cm/s Left Prox ICA Prox ICA PSV 79 cm/s Prox ICA EDV 26 cm/s Left Mid ICA Mid ICA PSV 94 cm/s Mid ICA EDV 26 cm/s Left Dist ICA Dist ICA PSV 117 cm/s Dist ICA EDV 36 cm/s Left Prox ECA Prox ECA PSV 72 cm/s Prox ECA EDV 15 cm/s Left Vertebral Vertebral PSV 46 cm/s Vertebral EDV 12 cm/s Left ICA/CCA RATIO ICA/CCA RATIO P 1.56 <Electronic Signature> 02/03/2025 07:19 PM Roxana Michael M.D. us Roxana Michael MD ULTRASOUND Final Result * ECG 12 lead (HOSPITAL PERFORMED ONLY) (01/06/2025 2:00 PM LAUNDRY HOUSEKEEPER) 01/06/2025 2:00 PM LAUNDRY HOUSEKEEPER Narrative [facility] - 01/06/2025 6:16 PM LAUNDRY HOUSEKEEPER [address] [place] [address] Test Date: 2025-01-06 Pat Name: JAD BENNETT Department: 3 Room: Gender: Male Supervisor Press Room: CHILANGO : 1960 Requested By: ROXANA MICHAEL Order Number: [id number] Reading MD: Roxana Michael Measurements Intervals [place] Rate: 68 P: 46 [place]: 199 QRS: -3 QRSD: 118 T: 59 QT: 386 QTc: 413 Interpretive Statements SINUS RHYTHM MODERATE INTRAVENTRICULAR CONDUCTION DELAY [110+ ms QRS DURATION] NONSPECIFIC T-WAVE ABNORMALITY DRY HOUSEKEEPER Procedure Note Roxana Michael MD - 01/06/[address] [place] [address] Test Date: 2025-01-06 Pat Name: JAD BENNETT Department: 3 Room: Gender: Male Supervisor Press Room: CHILANGO : 1960 Requested By: ROXANA MICHAEL Order Number: [id number] Reading MD: Roxana Michael Measurements Intervals [place] Rate: 68 P: 46 [place]: 199 QRS: -3 QRSD: 118 T: 59 QT: 386 QTc: 413 Interpretive Statements SINUS RHYTHM MODERATE INTRAVENTRICULAR CONDUCTION DELAY [110+ ms QRS DURATION] NONSPECIFIC T-WAVE ABNORMALITY DRY HOUSEKEEPER us Roxana Michael MD ECG ORDERABLES Final Result [facility] * LIPID PANEL (04/17/2012 12:00 AM CDT) TRIGLYCERIDES 1,335 0 - 150 mg/dl MEDINFORMATIX TO EPIC CONVERSION CHOLESTEROL 294 0 - 200 mg/dl MEDINFORMAT[employer] TO EPIC CONVERSION HDL 29 40 - 59 mg/dl MEDINFORMAT[employer] TO EPIC CONVERSION LDL CONVERSION -2 0 - 100 mg/dl MEDINFORMATIX TO EPIC CONVERSION CHOL/HDL RATIO 10.1 <4.0 (Calc) MEDINFORMATIX TO EPIC CONVERSION 04/17/2012 04/17/2012 Narrative MEDINFORMATIX TO EPIC CONVERSION - 04/25/2012 8:41 AM CDT Reviewed by JETT Apr 25 2012 8:42:00:000AM us Generic Conversion Md [facility] Final R esult MEDINFORMATIX TO EPIC CONVERSION from Last 3 Months or Most Recently Relevant to Health Maintenance Insurance MEDICARE MEDICAID Advance Directives * Full Code (Latest Code Status on File) Date Activated Date Inactivated Comments 02/17/2018 5:19 AM 02/17/2018 7:31 PM Care Teams Manager It Training Relationship Specialty Start Date End Date Bo Cummings MD [address] [place] [phone] PCP - General INTERNAL MEDICINE 08/18/22 Roxana Michael MD [address] [place] [address] Consulting Physician CARDIOVASCULAR DISEASE 12/12/24
--- OUTSIDE RECORDS SUMMARY | 2025-02-06 15:48 | XMS_ITS | Clinical Summary ---
Author Organization [facility] Address [address] [place] [address] Care Team Providers Care Solar Sales Consultant Name Role Phone Bo Cummings MD Primary Care Provider [phone] Allergies Active Allergy Reactions Criticality Noted Date Comments Cyclobenzaprine Other (See comments) Medium 05/21/2024 Increases muscles spasms patient stated Medications FreeStyle Caitlyn 3 [place] misc as directed 4 Active FreeStyle Caitlyn 3 [...] tablet (40 mg total) by mouth daily Active insulin glargine 100 unit/mL (3 mL) [...] 11/12/2024 Assessment & Plan (11/12/2024 12:04 PM FINANCE CLERK): 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 Chronic maxillary sinusitis 11/12/2024 Assessment & Plan (11/12/2024 12:04 PM FINANCE CLERK): Endoscopic Right Maxillary Antrostomy with removal of [...] 05/17/2024 Cellulitis of great toe, left 05/17/2024 Encounters Date Type Department Care Team Description 12/23/2024 Telephone [facility] - [facility] [address] [facility] [address] [place] [address] Holly Liriano MA 11/12/2024 11:30 AM FINANCE CLERK Office Visit [facility] [address] [facility] [address] [place] [phone] Aylin [place], Fungal sinusitis (Primary Dx); Chronic maxillary sinusitis from Last 3 Months Immunizations Immunization Administration Dates Next Due Influenza, Unspecified 08/29/2024(Deferred: Rubina ent Refused) Surgical History Surgery Date Site/Laterality Comments CORONARY ARTERY BYPASS GRAFT triple bypass NOSE SURGERY reconstructed APPENDECTOMY Medical History Medical History Date Comments Hypertension Type 2 diabetes mellitus (HCC) Stroke (HCC) TIA's with a lit tle weakness on the left side Cancer (HCC) Colon cancer Back injury back broken in 2 different areas Social History Tobacco Use Types Packs/Day Years Used Date Smoking Tobacco: Former Cigarettes Smokeless Tobacco: Never Tobacco Cessation:Counseling Given: Not Answered [facility] Utilities Answer Date Recorded In the past 12 months has [employer] electric, gas, oil, or water [employer] threatened to shut off services in your home? No 08/30/2024 Social Connection and Isolation Panel [NHANES] A nswer Date Recorded In a typical week, how many times do you talk on the phone with family, friends, or neighbors? Once a week 08/30/2024 How often do you get together with friends or re latives? Once a week 08/30/2024 How often do you attend muslim or spiritism serv ices? Never 08/30/2024 Do you belong to any clubs o r organizations such as muslim groups, unions, fraternal or athletic groups, or [...] any time in the past 12 m [facility], were you homeless or living in a usp (including now)? No 08/30/2024 Personal Safety Answer Date Recorded Have you ever been in or are you currently in a harmful physical or emotional relationship or is someone making you feel afraid or unsafe? Denies 09/17/2024 Sex and Gender Information Value Date Recorded Sex Assigned at Not on file Legal Sex Male 11:28 AM FINANCE CLERK Gender Identity Not on file Sexual Orientation Not on file Obstetrics History Last Filed Vital Signs Vital Sign Reading Time Taken Comments Blood Pressure 117/75 11/12/2024 11:39 AM FINANCE CLERK Pulse 87 11/12/2024 11:39 AM FINANCE CLERK Temperature 36.1 C (97 F) 10/17/2024 1:01 PM FINANCE CLERK Respiratory Rate 18 11/12/2024 11:39 AM FINANCE CLERK Oxygen Saturation 97% 11/12/2024 11:39 AM FINANCE CLERK Inhaled Oxygen Concentration - - Weight 94.3 kg (208 lb) 11/12/2024 11:39 AM FINANCE CLERK Height 175.3 cm (5' 9.02 ) 11/12/2024 11:[address] Body Mass Index 30.7 11/12/2024 11:39 AM FINANCE CLERK Plan of Treatment Health Maintenance Due Date Last Done Comments Albumin Creatinine Ratio, Urine 1959 Colon Cancer Screening-Colonoscopy 1959 Depression Screening 1959 Hepatitis C Screening 1959 Prostate Cancer Screening-PSA 1959 Dilated Eye Exam 1959 Foot Exam 1959 DTaP/Tdap/Td Vaccine (1 - Tdap) 1970 Hepatitis B Screening 1977 Zoster Vaccine (1 of 2) 2009 Lipid Panel 04/17/2013 04/17/2012 Pneumococcal vaccine 65+ (2 of 2 - PCV) 10/16/2019 10/16/2018 Covid-19 Vaccine (4 - 2023-2 5 season) 2024 11/12/2021, 03/12/2021, 02/09/2021 Influenza Vaccine (#1) 2024 , 10/15/2021, 10/16/2019, Additional history exists Abdominal Aortic Aneurysm (A AA) Screen 2024 Well Visit 65+ 2024 Hemoglobin A1C 02/28/2025 08/30/2024, 05/21/2024 Fall Risk Assessment 09/03/2025 09/03/2024 eGFR 10/17/2025 10/17/2024, 08/28, 09/03/2024, Additional history exists Procedures Procedure Name Priority Date/Time Associated Diagnosis Comments EGFR Routine 10/17/2024 1:35 PM FINANCE CLERK Other acute osteomyelitis of right foot (HCC) HEMOGLOBIN A1C Add-On 08/30/2024 3:22 AM CDT from Last 3 Months or Most Recently Relevant to Health Maintenance Results * eGFR (10/17/2024 1:35 PM FINANCE CLERK) eGFR >90 >=60 mL/min/1. 73 m2 Comment: [...] last reviewed 2021. Blood 10/17/2024 1:35 PM FINANCE CLERK 10/17/2024 3:49 PM FINANCE CLERK us Hollis Kim MD LAB BLOOD ORDERABLES Final Result Performing Organization Address City/[facility]/ZIP Co de Phone Number JOSEFA DIA ([place]) [address] [place] [address] Department [place] [address] * (ABNORMAL) Hemoglobin A1c (08/30/2024 3:22 AM CDT) [facility] Signature Hgb A1C 15.8(H) 4.0 - 5.6 % Estimated Average Glucose 407 mg/dL JOSEFA DIA ([place]) Comment: The ADA recommends reporting an estimated Average Glucose (eAG) with all Hemoglobin A1c results using the equation derived from a study of 507 normal and diabetic adults. Minority populations were underrepresented and children were not included. (Diabetes Care 31:8562-8345, 2008). The eAG is not equivalent to a fasting glucose. Blood 08/30/2024 3:22 AM CDT 08/30/2024 3:26 AM CDT us Sheela Lopez MD LAB BLOOD ORDERABLES Fin al Result JOSEFA [facility] ([place]) [address] [facility] Department [place] [address] from Last 3 Months or Most Recently Relevant to Health Maintenance Insurance MEDICARE IDPA MEDICARE IDPA Advance Directives For more information, please contact: [phone] * Full Code (Latest Code Status on File) Date Activated Date Inactivated Comments 08/29/2024 3:00 PM 09/03/2024 8:37 PM Care Teams Solar Sales Consultant Relationship Specialty Start Date End Date Bo Cummings MD PCP - General Internal Medicine 07/13/21
== END 2025-02-06 13:54 | disposition home or self-care (01) ==
LOC: CHSLAB 13:55
PROVIDERS: PCP Internal Medicine; Visit Provider Internal Medicine
DX: E11.65 Type 2 diabetes mellitus with hyperglycemia (principal); E78.5 Hyperlipidemia, unspecified; I10 Essential (primary) hypertension
CPT/HCPCS: 36415; 80053; 80061; 81003; 83036; 84443; 85025

== ENCOUNTER 2025-05-13 10:26 | Outpatient (CLI) | payer MEDICARE, SELFPAY ==
[2025-05-13 10:48] LABS: Basophils Absolute Auto 0.04 K/mm3 (0.00-0.10); Basophils Percent Auto 0.8 % (0.0-1.0); Eosinophils Absolute Auto 0.17 K/mm3 (0.02-0.50); Eosinophils Percent Auto 3.2 % (1.0-6.0); Hematocrit 34.9 % (37.0-46.0); Immature Granulocyte Absolute 0.07 K/mm3 (0.00-0.00); Immature Granulocyte Percent A 1.3 % (0.0-0.0); Lymphocytes Absolute Auto 1.81 K/mm3 (1.10-4.50); Lymphocytes Percent Auto 34.5 % (18.0-42.0); Mean Corpuscular HGB Conc 31.5 g/dL (32-36); Mean Corpuscular Hemoglobin 26.2 pg (27.0-31.0); Mean Corpuscular Volume 83.1 fL (78.0-102.0); Mean Platelet Volume 10.7 fl (8.7-11.0); Monocytes Absolute Auto 0.67 K/mm3 (0.10-0.90); Monocytes Percent Auto 12.8 % (2.0-11.0); Neutrophils Absolute Auto 2.48 K/mm3 (1.70-7.20); Neutrophils Percent Auto 47.4 % (50.0-70.0); Platelet Count Result 240 K/mm3 (150-420); Red Cell Distribution Width 13.9 % (11.6-14.4); White Blood Count 5.2 K/mm3 (4.8-10.8)
[2025-05-13 11:11] LABS: Alanine Aminotransferase 16 U/L (6-50); Alkaline Phosphatase 68 U/L (38-126); Anion Gap 3 mmol/L (4-12); Aspartate Amino Transferase 23 U/L (17-59); Bilirubin,Total 0.3 mg/dL (0.2-1.3); Blood Urea Nitrogen 12 mg/dL (9-20); Calcium 9.5 mg/dL (8.4-10.2); Carbon Dioxide 29 mmol/L (22-30); Chloride 106 mmol/L (98-107); Cholesterol 218 mg/dL (0-200); Estimated Glomerular Filt Rate > 60; Glucose 265 mg/dL (65-110); HDL Direct 52 mg/dL; LDL Cholesterol Calculated 90 mg/dL (<130); Osmolality Calculated 294 mOsm/kg (285-295); Potassium 4.5 mmol/L (3.4-5.0); Sodium 138 mmol/L (137-145); Total Protein 6.5 g/dL (6.3-8.2); Triglycerides 379 mg/dL (<150)
[2025-05-13 11:38] LABS: Creatinine Urine 28.3 mg/dL
--- OUTSIDE RECORDS SUMMARY | 2025-05-13 11:38 | XMS_ITS | Clinical Summary ---
Author Organization [facility] Address [address] [place] [address] Phone Care Team Providers Care Director Of Consumer Marketing Name Role Phone Bo Cummings MD Primary Care Provider [phone] Allergies Active Allergy Reactions Criticality Noted Date [...] 11:00 AM CDT Height 175.3 cm (5' 9) 03/15/2024 11:00 AM CDT Body Mass Index [...] (2 of 2 - PCV) 10/16/2019 10/16/2018 SARS-COV-2 Immunization (4 - season) 2024 11/12/2021, 03/12/2021, 02/09/2021 Influenza Immunization (Season Ended) 2025 10/24/2022, 10/15/2021, 10/16/2019, Additional history exists Pneumococcal Immunization Combined Discontinued 10/16/2018 Hepatitis B Immunization Aged Out No longer eligible based on patient's age to complete this topic Human Papillomavirus (HPV) Immunization Aged Out No longer eligible based on patient's age to complete this topic Meningococcal Immunization (ACWY) Aged Out No longer eligible based on patient's age to complete this topic Rotavirus Immunization Aged Out No lo nger eligible based on patient's age to complete this topic Insurance MEDICARE MEDICAID [place] Care Teams Director Of Consumer Marketing Relationship Specialty Start Date End Date Bo Cummings MD [address] [place] [address] PCP - General Internal Medicine 04/02/24
--- OUTSIDE RECORDS SUMMARY | 2025-05-13 11:38 | XMS_ITS | Clinical Summary ---
Author Organization [facility] Address [address] [place] [address] Care Team Providers Care Blending Coordinator Name Role Phone Bo Cummings MD Primary Care Provider [phone] Allergies Active Allergy Reactions Criticality Noted Date Comments Cyclobenzaprine Other (See comments) Medium 05/21/2024 Increases muscles spasms patient stated Medications FreeStyle Caitlyn 3 [place] misc as directed 02/22/20 24 Active FreeStyle Caitlyn 3 Sensor device CHANGE SENSOR EVERY 14 DAYS (MED B ONLY COVERS FOR INSULIN DEPENDENT) 02/21/[address] (CYMBALTA) 30 mg capsule Take 1 capsule (30 mg total) by mouth 2 (two) times a day 03/14/20 24 Active ezetimibe (ZETIA) 10 mg tablet Take 1 tablet (10 mg total) by mouth daily 05/13/20 24 Active fenofibrate nanocrystallized (TRICOR) 145 mg tablet Take 1 tablet (145 mg total) by mouth nightly at bedtime. 02/28/20 24 Active HYDROcodone-acetamin ophen (NORCO) 10-325 mg per tablet Take 1 tablet by mouth 4 (four) times a day as needed for pain 04/29/20 24 Active metFORMIN XR (GLUCOPHAGE XR) 500 mg 24 hr tablet Take 2 tablets (1,000 mg total) by mouth 2 (two) times a day 03/28/20 24 Active montelukast (SINGULAIR) 10 mg tablet Take 1 tablet (10 mg total) by mouth daily 02/29/20 24 Active omeprazole (PriLOSEC) 40 mg capsule Take 1 capsule (40 mg total) by mouth daily 02/28/20 24 Active rosuvastatin (CRESTOR) 40 mg tablet Take 1 tablet (40 mg total) by mouth daily 02/29/20 24 Active insulin aspart (NovoLOG) 100 unit/mL (3 [...] (two) times a day with meals Active dexAMETHasone (DECADRON) 1 mg tablet Take 1 tablet when directed 1 tablet 02/14/20 25 Active insulin regular U-500 (HumuLIN R) 500 unit/mL (3 mL) CONCENTRATED pen for injection Take 185 units with breakfast and 95 units with dinner 15 mL 6 02/15/20 25 Active Active Problems Problem Noted Date Diagnosed Date 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 Chronic maxillary sinusitis 11/12/2024 Assessment & Plan (11/12/2024 12:04 PM MANAGER LIGHTING): Endoscopic Right Maxillary Antrostomy with removal of [...] Encounters Date Type Department Care Team Description 03/17/2025 3:00 PM CDT Office Visit [facility] Diabetes Endocrine Care at [address] [phone] Galilea Bella DO Type 2 diabetes mellitus with hyperglycemia, with long-term current use of insulin (HCC) (Primary Dx) 03/17/2025 Telephone [facility] Primary Care at [address] [phone] Galilea Bella DO 02/13/2025 3:00 PM CDT Office Visit [facility] Diabetes Endocrine Care at [address] [phone] Galilea Bella DO Insulin resistance (Primary Dx); Type 2 diabetes mellitus with hyperglycemia, with long-term current use of insulin (HCC) 02/13/2025 Telephone [facility] Primary Care at [address] [phone] Galilea Bella DO Medication info from Last 3 Months Immunizations Immunization Administration [...] Tobacco: Never Tobacco Cessation:Counseling Given: Not Answered [facility] Utilities Answer Date Recorded In the past 12 months has e [employer], gas, oil, or water company threatened to [...] week 08/30/2024 How often do you attend confucianism or baptist serv ices? Never 08/30/2024 Do you belong to any clubs o r organizations such as confucianism groups, unions, fraternal or athletic groups, or [...] any time in the past 12 m [facility], were you homeless or living in a halfway (including now)? No 08/30/2024 Personal Safety Answer Date Recorded Have you ever been in or are you currently in a harmful physical or emotional relationship or is someone making you feel afraid or unsafe? Denies 09/17/2024 Sex and Gender Information Value Date Recorded Sex Assigned at Not on file Legal Sex Male 11:28 AM MANAGER LIGHTING Gender Identity Not on file Sexual Orientation Not on file Obstetrics History Last Filed Vital Signs Vital Sign Reading Time Taken Comments Blood Pressure 100/62 03/17/2025 2:49 PM CDT Pulse 104 03/17/2025 2:49 PM CDT Temperature 36.1 C (97 F) 10/17/2024 1:01 PM MANAGER LIGHTING Respiratory Rate 18 11/12/2024 11:39 AM MANAGER LIGHTING Oxygen Saturation 97% 11/12/2024 11:39 AM MANAGER LIGHTING Inhaled Oxygen Concentration - - Weight 93.6 kg (206 lb 4.8 oz) 03/17/2025 2:49 P M CDT Height 175.3 cm (5' 9.02) 03/17/2025 2:49 PM CD T Body Mass Index 30.45 03/17/2025 2:49 PM CDT Plan of Treatment Health Maintenance Due Date Last Done Comments Albumin Creatinine Ratio, Urine 1959 Colon Cancer Screening-Colonoscopy 1959 Depression Screening 1959 Hepatitis C Screening 1959 Prostate Cancer Screening-PSA 1959 Foot Exam 1959 DTaP/Tdap/Td Vaccine (1 - Tdap) 1970 Hepatitis B Screening 1977 Zoster Vaccine (1 of 2) 2009 Pneumococcal vaccine 65+ (2 of 2 - PCV) 10/16/2019 10/16/2018 Covid-19 Vaccine (4 - 2023-2 5 season) 2024 11/12/2021, 03/12/2021, 02/09/2021 Abdominal Aortic Aneurysm (A AA) Screen 2024 Well Visit 65+ 2024 Influenza Vaccine (Season Ended) 2025 10/24/2022, 10/15/2021, 10/16/2019, Additional history exists Hemoglobin A1C 08/09/2025 02/06/2025, 1002/2024, 05/21/2024 Fall Risk Assessment 09/03/2025 09/03/2024 Lipid Panel 02/06/2026 02/06/2025, 04/17/2012 eGFR 02/06/2026 02/06/2025, 11/2 11/2023, 09/17/2024, Additional history exists Dilated Eye Exam 02/19/2027 02/19/2025, 11/05/2024 Procedures Procedure Name Priority Date/Time Associated Diagnosis Comments DIABETIC EYE EXAM Routine 11/05/2024 EGFR Routine 10/17/2024 1:35 PM MANAGER LIGHTING Other acute osteomyelitis of right foot (HCC) HEMOGLOBIN A1C Add-On 08/30/2024 3:22 AM CDT from Last 3 Months or Most Recently Relevant to Health Maintenance Results * Diabetic Eye Exam (11/05/2024) 11/05/2024 us Historical Provider HEALTH MAINTENANCE Final Result * eGFR (10/17/2024 1:35 PM MANAGER LIGHTING) eGFR >90 >=60 mL/min/1. 73 m2 Comment: [...] last reviewed 2021. Blood 10/17/2024 1:35 PM MANAGER LIGHTING 10/17/2024 3:49 PM MANAGER LIGHTING us Hollis Kim MD LAB BLOOD ORDERABLES Final Result Performing Organization Address [facility] Co de Phone Number [facility] ([place]) [address] [facility] [place] [address] * (ABNORMAL) Hemoglobin A1c (08/30/2024 3:22 AM CDT) Hgb A1C 15.8(H) 4.0 - 5.6 % Estimated Average Glucose 407 mg/dL JOSEFA DIA ([place]) Comment: The ADA recommends reporting an estimated Average Glucose (eAG) with all Hemoglobin A1c results using the equation derived from a study of 507 normal and diabetic adults. Minority populations were underrepresented and children were not included. (Diabetes Care 31:6603-3141, 2008). The eAG is not equivalent to a fasting glucose. Blood 08/30/2024 3:22 AM CDT 08/30/2024 3:26 AM CDT Sheela Lopez MD LAB BLOOD ORDERABLES Fin al Result Performing Organization Address [facility] Co de Phone Number [facility] ([place]) [address] [place] [address] from Last 3 Months or Most Recently Relevant to Health Maintenance Insurance MEDICARE IDPA MEDICARE [facility] Address: [address] [place] [address] [employer] Advance Directives For more information, please contact: [phone] * Full Code (Latest Code Status on File) Date Activated Date Inactivated Comments 08/29/2024 3:00 PM 09/03/2024 8:37 PM Care Teams Blending Coordinator Relationship Specialty Start Date End Date Bo Cummings MD PCP - General Internal Medicine 07/13/21
--- OUTSIDE RECORDS SUMMARY | 2025-05-13 11:38 | XMS_ITS | Referral Summary ---
Author Organization [facility] Address [address] [place] [phone] Care Team Providers Care Cellars Supervisor Name Role Phone Bo Cummings MD Primary Care Provider [phone] Encounters Date Type Department Care Team Description 03/17/2025 3:00 PM CDT Office Visit [facility] Medical [facility] Diabetes Endocrine Care at [address] [phone] Galilea Bella DO Type 2 diabetes mellitus with hyperglycemia, with long-term current use of insulin (HCC) (Primary Dx) 03/17/2025 Telephone [facility] Medical [facility] Primary Care at [address] [phone] Galilea Bella DO 02/13/2025 Telephone [facility] Primary Care at [address] [phone] Galilea Bella DO Medication info 02/13/2025 3:00 PM CDT Office Visit [facility] Diabetes Endocrine Care at [address] [phone] Galilea Bella DO Insulin resistance (Primary Dx); Type 2 diabetes mellitus with hyperglycemia, with long-term current use of insulin (HCC) from Last 3 Months Allergies Active Allergy Reactions Criticality Noted Date Comments Cyclobenzaprine Other (See comments) Medium 05/21/2024 Increases muscles spasms patient stated Medications FreeStyle Caitlyn 3 [place] misc as directed 02/22/20 24 Active FreeStyle [...] 11/12/2024 Assessment & Plan (11/12/2024 12:04 PM CRISIS COUNSELOR): 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 Chronic maxillary sinusitis 11/12/2024 Assessment & Plan (11/12/2024 12:04 PM CRISIS COUNSELOR): Endoscopic Right Maxillary Antrostomy with removal of [...] Tobacco: Never Tobacco Cessation:Counseling Given: Not Answered [facility] Utilities Answer Date Recorded In the past 12 months has [employer], gas, oil, or water company threatened to [...] week 08/30/2024 How often do you attend sabianist or pentecostalism serv ices? Never 08/30/2024 Do you belong to any clubs o r organizations such as sabianist groups, unions, fraternal or athletic groups, or [...] any time in the past 12 m [facility], were you homeless or living in a long-term (including now)? No 08/30/2024 Personal Safety Answer Date Recorded Have you ever been in or are you currently in a harmful physical or emotional relationship or is someone making you feel afraid or unsafe? Denies 09/17/2024 Sex and Gender Information Value Date Recorded Sex Assigned at Not on file Legal Sex Male 11:28 AM CRISIS COUNSELOR Gender Identity Not on file Sexual Orientation Not on file Last Filed Vital Signs Vital Sign Reading Time Taken Comments Blood Pressure 100/62 03/17/2025 2:49 PM CDT Pulse 104 03/17/2025 2:49 PM CDT Temperature 36.1 C (97 F) 10/17/2024 1:01 PM CRISIS COUNSELOR Respiratory Rate 18 11/12/2024 11:39 AM CRISIS COUNSELOR Oxygen Saturation 97% 11/12/2024 11:39 AM CRISIS COUNSELOR Inhaled Oxygen Concentration - - Weight 93.6 kg (206 lb 4.8 oz) 03/17/2025 2:49 P M CDT Height 175.3 cm (5' 9.02) 03/17/2025 2:49 PM CD T Body Mass Index 30.45 03/17/2025 2:49 PM CDT Plan of Treatment Not on file Procedures Procedure Name Priority Date/Time Associated Diagnosis Comments DIABETIC EYE EXAM Routine 11/05/2024 EGFR Routine 10/17/2024 1:35 PM CRISIS COUNSELOR Other acute osteomyelitis of right foot (HCC) HEMOGLOBIN A1C Add-On 08/30/2024 3:22 AM CDT from Last 3 Months or Most Recently Relevant to Health Maintenance Results * Diabetic Eye Exam (11/05/2024) 11/05/2024 us Historical Provider HEALTH MAINTENANCE Final Result * eGFR (10/17/2024 1:35 PM CRISIS COUNSELOR) eGFR >90 >=60 mL/min/1. 73 m2 Comment: [...] last reviewed 2021. Blood 10/17/2024 1:35 PM CRISIS COUNSELOR 10/17/2024 3:49 PM CRISIS COUNSELOR us Hollis Kim MD LAB BLOOD ORDERABLES Final Result Performing Organization Address [facility] Co de Phone Number [facility] ([place]) 1 [facility] [place] [address] * (ABNORMAL) Hemoglobin A1c (08/30/2024 3:22 AM CDT) Hgb A1C 15.8(H) 4.0 - 5.6 % Estimated Average Glucose 407 mg/dL JOSEFA DIA ([place]) Comment: The ADA recommends reporting an estimated Average Glucose (eAG) with all Hemoglobin A1c results using the equation derived from a study of 507 normal and diabetic adults. Minority populations were underrepresented and children were not included. (Diabetes Care 31:5144-2199, 2008). The eAG is not equivalent to a fasting glucose. Blood 08/30/2024 3:22 AM CDT 08/30/2024 3:26 AM CDT Sheela Lopez MD LAB BLOOD ORDERABLES Fin al Result [facility] ([place]) 1 [facility] [place] [address] from Last 3 Months or Most Recently Relevant to Health Maintenance Insurance MEDICARE [place] MEDICARE IDPA Advance Directives For more information, please contact: [phone] * Full Code (Latest Code Status on File) Date Activated Date Inactivated Comments 08/29/2024 3:00 PM 09/03/2024 8:37 PM Care Teams Cellars Supervisor Relationship Specialty Start Date End Date Bo Cummings MD PCP - General Internal Medicine 07/13/21
[2025-05-13 11:42] LABS: MALB Creatinine Ratio 35.3 mg/g (0-30)
[2025-05-13 13:56] LABS: Hemoglobin A1C 12.6 % (<5.7)
== END 2025-05-13 10:27 | disposition home or self-care (01) ==
LOC: CHSLAB 10:28
PROVIDERS: PCP Internal Medicine; Visit Provider Internal Medicine
DX: E11.65 Type 2 diabetes mellitus with hyperglycemia (principal); E78.5 Hyperlipidemia, unspecified; I10 Essential (primary) hypertension
CPT/HCPCS: 36415; 80053; 80061; 82043; 83036; 84443; 85025

== ENCOUNTER 2025-05-25 21:29 | Emergency (ER) | payer MEDICARE, MEDICAID, SELFPAY ==
[2025-05-25] VITALS (11 sets, daily range): BP systolic 132–153; BP diastolic 70–92; PULSE 58–74; RESP 12–19; TEMP 35.5; O2SAT 94–100
--- NOTE | ~2025-05-25 | XR_ITS ---
EXAMINATION: XR chest 1V portable Exam Date/Time: 05/25/2025 21:41 CDT HISTORY: syncope Comparison: 10/07/2019. RESULT: Lines, tubes, and devices: Fractured upper sternotomy wire that remains in stable position. Mediasti nal surgical clips. Lungs and pleura: Clear. Cardiomediastinal silhouette: Stable. Other: No acute osseous or upper abdominal finding. IMPRESSION: No acute cardiopulmonary process. Reviewed, dictated and finalized at location K.
--- NOTE | ~2025-05-25 | CT_ITS ---
Non-contrast Head CT History: Syncope Technique: Axial non-contrast imaging of the brain was performed. Dose reduction technique was used on this scan by utilizing automated exposure control and iterative reconstruction technique. The dose -length product (DLP) was 605.33 mGy-cm. Findings: There is no evidence of intracranial hemorrhage, mass lesion, or acute infarct. Brain par enchyma appears normal. The ventricles and subarachnoid spaces are normal in size. The calvarium ap pears normal. Right maxillary sinus disease noted. The remaining visualized paranasal sinuses and mas toid air cells are clear. Impression: No intracranial abnormality seen. Right maxillary sinus disease. Reviewed, dictated and finalized at location . Impression: No intracranial abnormality seen. Right maxillary sinus disease.
[2025-05-25 21:33] LABS: Glucose Point of Care 102 mg/dl (65-105)
--- NOTE | 2025-05-25 21:33 | ED_ITS ---
HPI - Syncope General Chief Complaint: Syncope Stated Complaint: low blood sugar Time Seen by Provider: 05/25/25 21:31 Source: patient and EMS Mode of arrival: EMS Limitations: no limitations History of Present Illness HPI narrative: patient is a 64-year-old male with high dose insulin use for diabetes 2 and had a sweating event a few hours after insulin and awoke after sink up with EMS arrival. He is here for evaluation. MD complaint: loss of consciousness Onset (ago): minute(s) ( Thirty) Duration of episode: 5 -: minutes(s) Description of event: other ( no seizure activity; EMS found his blood sugar to be 33) Prodromal symptoms: diaphoresis Witnessed: No Context: other ( patient had hypoglycemic event and EMS gave D10 and he became baseline and a blood sugar of 102.) Injuries sustained associated with event: none Current symptoms: back to baseline History: other ( Hypoglycemia) Treatments prior to arrival: glucose Related Data Home Medications ?Medication ?Instructions ?Recorded ?Confirmed ?Last Taken ?Type carvedilol 6.25 mg tablet 6.25 mg PO BID 10/07/19 07/21/24 12/09/19 History duloxetine 30 mg capsule,delayed 30 mg PO BID 10/07/19 07/21/24 12/09/19 History release ezetimibe 10 mg tablet 10 mg PO DAILY 10/07/19 07/21/24 12/09/19 History fenofibrate nanocrystallized 145 145 mg PO HS 10/07/19 07/21/24 12/08/19 History mg tablet hydrocodone 10 mg-acetaminophen 1 tablet PO QID PRN Pain 10/07/19 07/21/24 12/09/19 History 325 mg tablet insulin aspart U-100 100 unit/mL 70 unit subcut BID 10/07/19 07/21/24 12/08/19 History (3 mL) subcutaneous pen (Novolog FlexPen U-100 Insulin aspart) insulin glargine 100 unit/mL (3 120 unit subcut BID 10/07/19 07/21/24 12/09/19 History mL) subcutaneous pen (Basaglar KwikPen U-100 Insulin) lisinopril 40 mg tablet 40 mg PO DAILY 10/07/19 07/21/24 12/09/19 History metformin 500 mg tablet 1,000 mg PO BID 10/07/19 07/21/2420 History montelukast 10 mg tablet 10 mg PO DAILY 10/07/19 07/21/24 12/09/19 History rosuvastatin 40 mg tablet 40 mg PO HS 10/07/19 07/21/24 12/08/19 History aspirin 325 mg tablet 325 mg PO DAILY 12/09/19 07/21/24 12/09/19 History omeprazole 40 mg capsule,delayed 40 mg PO DAILY 07/21/24 07/21/24 Unknown History release pioglitazone 15 mg tablet 15 mg PO DAILY 07/21/24 07/21/24 Unknown History Allergies Allergy/AdvReac Type Severity Reaction Status Date / Time cyclobenzaprine AdvReac Mild Cramping Verified 12/10/19 11:11 of the Muscles Review of Systems 2 Review of Systems: All systems reviewed & are unremarkable except as noted in HPI and below Constitutional: Constitutional: Reports no additional constitutional complaints Eyes: Eyes: Reports no additional eye complaints ENT: Reports system reviewed and no additional complaints, except as documented Cardiovascular: Cardiovascular: Reports no additional cardiovascular complaints Respiratory: Respiratory: Reports no additional respiratory complaints Gastrointestinal: Gastrointestinal: Reports no additional gastrointestinal complaints Genitourinary: Genitourinary: Reports no additional male genitourinary complaints Musculoskeletal: Musculoskeletal: Reports no additional musculoskeletal complaints Integumentary/Breasts: Skin/Breast: Reports system reviewed and no additional complaints, except as docu Neurologic: Reports system reviewed and no additional complaints, except as documented Psychiatric: Psychiatric: Reports no additional psychiatric complaints Endocrine: Endocrine: Reports no additional endocrine complaints Hematologic/Lymphatic: Hematologic/Lymphatic: Reports no additional hematologic/lymphatic complaints Allergic/Immunologic: Allergic/Immunologic: Reports no additional allergic/immunologic complaints [facility] Past Medical History Medical History (Updated 05/26/25 @ 00:15 by Ben Rey MD) Diabetic neuropathy Hypercholesterolemia Depression Hypertension Diabetes Surgical History Surgical History S/P CABG x 3 Family History Family History Mother , mother age 77 Diabetes mellitus Father , father at age 78 Diabetes mellitus Acute myocardial infarction Sibling History of blood clots Chronic obstructive pulmonary disease Hypertension Cancer Sibling Cerebrovascular accident Social History Social History Smoking packs per day: 4 Smoking cigarettes per day: 80.0 Years smoked: 11 Smoking pack-years: 44.00 Smoking status: Former smoker Tobacco type: cigarettes Alcohol intake: never Substance use: never Substance use type: does not use Gender identity (if verbalized by the patient): Male Spiritual care concerns: No Agree to blood products: Yes Exam 2 Const: General: healthy appearing Nutritional Appearance: well nourished Orientation/consciousness: patient oriented x3 Limitations: no limitations Other: Patient was unconscious with EMS and given D10 and by the time he made it to the hospital he was baseline. HENMT: Head: normal to inspection Ears: external ears normal F jasmin/Nose/Sinus: Normal external nose present Eyes: Conjunctivae: conjunctivae normal Pupils: Equal, round and reactive pupils present EOM: EOMs intact bilaterally Neck: Neck: normal visual inspection Chest: Chest palpation & inspection: normal inspection of the chest Resp: Effort & Inspection: normal respiratory effort and not labored A uscultation: clear to auscultation bilaterally and no crackles Cardio: Rate: regular rate Rhythm: regular rhythm Heart sounds: no murmurs GI: Inspection: non-distended GI Palp: Yes Soft to palpation and No Tenderness to palpation present (GI) Auscultation: normal bowel sounds : General: Yes bladder normal to palpation Back/Spine/Pelvis: Back: no CVA tenderness Skin: General skin exam: normal color Rashes: no rashes Wounds: no wounds Neuro: General: patient oriented x3, moves all extremities, no meningeal signs, no focal motor deficits and CN's II-XI intact bilaterally Cranial nerves: Yes Nystagmus not present Speech: normal speech Other: NIH is 0, GCS is 15 Extrem: General: normal to inspection Psych: Mental Status: mental status grossly normal Affect: normal affect Attitude: cooperative Course Vital Signs Vital signs: Vital Signs Temperature 35.5 C L 05/25/25 21:29 Pulse Rate 61 05/25/25 21:29 Respiratory Rate 12 05/25/25 21: Blood Pressure 153/79 H 05/25/25 21:29 Pulse Oximetry 95 05/25/25 21:29 Oxygen Delivery Room Air 05/25/25 21:29 Temperature 35.5 C L 05/25/25 21:29 Pulse Rate 70 05/25/25 23:19 Respiratory Rate 19 05/25/25 23:19 Blood Pressure 144/87 H 05/25/25 23:19 Pulse Oximetry 100 05/25/25 23:19 Oxygen Delivery Room Air 05/25/25 21:35 MDM - Syncope MDM Narrative Medical decision making narrative: Patient is a 64-year-old male with high dose insulin use and hypoglycemia this evening. We will do a workup at this time for reassurance and monitor his blood sugar. patient has been having various hypoglycemia events in the emergency room so we will start D10 at this time. After 15-20 minutes of holding D10 his blood sugar was 142. No further confusion and feeling baseline at this time. We will road test the patient prior to discharge. Lab Data Attestation: I reviewed the patient's lab results. 05/25/25 22:17 05/25/25 22:17 Labs: Lab Results 05/25/25 05/25/25 05/25/25 Range/Units 21:31 22:15 22:17 WBC 8.8 (4.8-10.8) K/mm3 RBC 5.11 (4.70-6.10) M/mm3 Hgb 12.9 (12.4-15.3) g/dL Hct 42.2 (37.0-46.0) % MCV 82.6 (78.0-102.0) fL MCH 25.2 L (27.0-31.0) pg MCHC 30.6 L (32-36) g/dL RDW 14.2 (11.6-14.4) % Plt Count 320 (150-420) K/mm3 MPV 10.6 (8.7-11.0) fl Immature Gran % (Auto) 1.1 H (0.0-0.0) % Neut % (Auto) 69.5 (50.0-70.0) % Lymph % (Auto) 17.8 L (18.0-42.0) % [place] % (Auto) 8.8 (2.0-11.0) % Eos % (Auto) 2.3 (1.0-6.0) % Baso % (Auto) 0.5 (0.0-1.0) % Lymph # (Auto) 1.56 (1.10-4.50) K/mm3 [place] # (Auto) 0.77 (0.10-0.90) K/mm3 Eos # (Auto) 0.20 (0.02-0.50) K/mm3 Baso # (Auto) 0.04 (0.00-0.10) K/mm3 Abs Immat Gran (auto) 0.10 H (0.00-0.00) K/mm3 Absolute Neuts (auto) 6.08 (1.70-7.20) K/mm3 Absolute Nucleated RBC 0.00 (0.00-0.00) K/mm3 Nucleated RBC % 0.0 (0-0.0) % Sodium 142 (137-145) mmol/L Potassium 3.4 (3.4-5.0) mmol/L Chloride 106 (98-107) mmol/L Carbon Dioxide 29 (22-30) mmol/L Anion Gap 7 (4-12) mmol/L BUN 8 L (9-20) mg/dL Creatinine 0.80 (0.7-1.3) mg/dL Estim Creat Clear Calc 91 ml/min Estimated GFR > 60 (59 - ) Glucose 40 L* (65-110) mg/dL POC Capillary Glucose 102 50 L* (65-105) mg/dl Calculated Osmolality 289 (285-295) mOsm/kg Calcium 9.9 (8.4-10.2) mg/dL Magnesium 1.8 (1.6-2.3) mg/dL Total Bilirubin 0.4 (0.2-1.3) mg/dL AST 39 (17-59) U/L ALT 27 (6-50) U/L Alkaline Phosphatase 64 (38-126) U/L Troponin I < 0.012 (0.000-0.034) ng/mL NT-Pro-B Natriuret Pep 106 H (19.9-100) pg/mL Total Protein 8.3 H (6.3-8.2) g/dL Albumin 4.8 (3.5-5.1) g/dL Urine Color Light yellow (Yellow) Urine Appearance Clear (Clear) Urine pH 8.0 (5.0-8.0) Ur Specific [place] 1.010 (1.010-1.020) Urine Protein 1+ H (Negative) Urine Glucose (UA) 3+ H (Negative) Urine Ketones Negative (Negative) Ur Blood (Man) Negative (Negative) Urine Nitrate Negative (Negative) Urine Bilirubin Negative (Negative) Urine Urobilinogen 0.2 (0.2-1.0) mg/dL Leukocyte Esterase Rfl Negative (Negative) NELSON/UL Urine RBC None seen (0-2) /hpf Urine WBC None seen (0-3) /hpf Urine Mucus None seen /lpf 05/25/25 05/26/25 Range/Units 23:08 00:08 WBC (4.8-10.8) K/mm3 RBC (4.70-6.10) M/mm3 Hgb (12.4-15.3) g/dL Hct (37.0-46.0) % MCV (78.0-102.0) fL MCH (27.0-31.0) pg MCHC (32-36) g/dL RDW (11.6-14.4) % Plt Count (150-420) K/mm3 MPV (8.7-11.0) fl Immature Gran % (Auto) (0.0-0.0) % Neut % (Auto) (50.0-70.0) % Lymph % (Auto) (18.0-42.0) % [place] % (Auto) (2.0-11.0) % Eos % (Auto) (1.0-6.0) % Baso % (Auto) (0.0-1.0) % Lymph # (Auto) (1.10-4.50) K/mm3 [place] # (Auto) (0.10-0.90) K/mm3 Eos # (Auto) (0.02-0.50) K/mm3 Baso # (Auto) (0.00-0.10) K/mm3 Abs Immat Gran (auto) (0.00-0.00) K/mm3 Absolute Neuts (auto) (1.70-7.20) K/mm3 Absolute Nucleated RBC (0.00-0.00) K/mm3 Nucleated RBC % (0-0.0) % Sodium (137-145) mmol/L Potassium (3.4-5.0) mmol/L Chloride (98-107) mmol/L Carbon Dioxide (22-30) mmol/L Anion Gap (4-12) mmol/L BUN (9-20) mg/dL Creatinine (0.7-1.3) mg/dL Estim Creat Clear Calc ml/min Estimated GFR (59 - ) Glucose (65-110) mg/dL POC Capillary Glucose 134 H 142 H (65-105) mg/dl Calculated Osmolality (285-295) mOsm/kg Calcium (8.4-10.2) mg/dL Magnesium (1.6-2.3) mg/dL Total Bilirubin (0.2-1.3) mg/dL AST (17-59) U/L ALT (6-50) U/L Alkaline Phosphatase (38-126) U/L Troponin I (0.000-0.034) ng/mL NT-Pro-B Natriuret Pep (19.9-100) pg/mL Total Protein (6.3-8.2) g/dL Albumin (3.5-5.1) g/dL Urine Color (Yellow) Urine Appearance (Clear) Urine pH (5.0-8.0) Ur Specific [place] (1.010-1.020) Urine Protein (Negative) Urine Glucose (UA) (Negative) Urine Ketones (Negative) Ur Blood (Man) (Negative) Urine Nitrate (Negative) Urine Bilirubin (Negative) Urine Urobilinogen (0.2-1.0) mg/dL Leukocyte Esterase Rfl (Negative) NELSON/UL Urine RBC (0-2) /hpf Urine WBC (0-3) /hpf Urine Mucus /lpf Imaging Data Attestation: I personally reviewed and interpreted this imaging study as follows: Radiologist's impression: Chest x-ray is negative for acute process CT scan of the head was negative for acute process ECG Data EKG #1: Attestation: I personally reviewed and interpreted this ECG as follows: ECG completion date: 05/25/25 ECG completion time: 22:15 EKG Interpretation: bradycardia, sinus rhythm, no ectopy, non-specific ST changes, normal QRS, normal QT and left axis Discharge Plan Discharge Clinical Impression: Hypoglycemia Diabetes Qualifiers: Diabetes mellitus type: type 2 Diabetes mellitus joint terminal attack controller insulin use: with joint terminal attack controller use Diabetes mellitus complication status: without complication Q ualified Code(s): E11.9 - Type 2 diabetes mellitus without complications Patient Disposition: Home Condition: Stable Instructions: Hypoglycemia in a Person with Diabetes (DC) Additional Instructions: please discuss with your primary doctor about low blood sugar events on current insulin dose. They may want to make changes. Patient Language: Greek Prescriptions: No Action metformin 500 mg tablet 1,000 mg PO BID carvedilol 6.25 mg tablet 6.25 mg PO BID hydrocodone-acetaminophen 10-325 mg tablet 1 tablet PO QID PRN (Reason: Pain) montelukast 10 mg tablet 10 mg PO DAILY lisinopril 40 mg tablet 40 mg PO DAILY ezetimibe 10 mg tablet 10 mg PO DAILY insulin aspart U-100 [Novolog FlexPen U-100 Insulin] 100 unit/mL (3 mL) insulin pen 70 unit SUBCUT BID Patient Comments: at breakfast and lunch unless blood sugar is <200 then pt takes 35 units rosuvastatin 40 mg tablet 40 mg PO HS duloxetine 30 mg capsule,delayed release(DR/EC) 30 mg PO BID fenofibrate nanocrystallized 145 mg tablet 145 mg PO HS insulin glargine [Basaglar KwikPen U-100 Insulin] 100 unit/mL (3 mL) insulin pen 120 unit SUBCUT BID aspirin 325 mg Tablet 325 mg PO DAILY pioglitazone 15 mg tablet 15 mg PO DAILY omeprazole 40 mg capsule,delayed release(DR/EC) 40 mg PO DAILY amoxicillin-pot clavulanate [Augmentin] 500-125 mg tablet 1 tablet PO TID Qty: 30 0RF naproxen 500 mg tablet 500 mg PO BID PRN (Reason: pain) Qty: 14 0RF Follow-up/Referrals: Bo Cummings MD [Primary Care Provider] - Time of Disposition: 00:15
--- NOTE | 2025-05-25 21:34 | ECG_ITS ---
Test Date: 2025-05-25 21:51:45 Measurements Intervals [place] Rate: 57 P: 35 MO: 205 QRS: -17 QRSD: 97 T: 81 QT: 432 QTc: 424 Interpretive Statements SINUS BRADYCARDIA BORDERLINE AV CONDUCTION DELAY NONSPECIFIC T-WAVE ABNORMALITY- DIFFUSE LEADS BASELINE ARTIFACT- I, II, AVR, AVL, AVF, V1 BORDERLINE ECG No previous ECG available for comparison Electronically Signed On 05-26-2025 06:31:25 CDT by Mark Quinonez D.O.
--- NOTE | 2025-05-25 22:05 | PC.NURSE ---
Pt becoming slightly more confused when ERP when in to talk to pt, BS recheck ordered and meds ordered per ERP.
[2025-05-25 22:18] LABS: Glucose Point of Care 50 mg/dl (65-105)
[2025-05-25] MEDS: DEXTROSE 50% 25 GM/50 ML SYRINGE IV PUSH (22:18)
[2025-05-25 22:27] LABS: Basophils Absolute Auto 0.04 K/mm3 (0.00-0.10); Basophils Percent Auto 0.5 % (0.0-1.0); Eosinophils Percent Auto 2.3 % (1.0-6.0); Hematocrit 42.2 % (37.0-46.0); Hemoglobin 12.9 g/dL (12.4-15.3); Immature Granulocyte Percent A 1.1 % (0.0-0.0); Lymphocytes Absolute Auto 1.56 K/mm3 (1.10-4.50); Lymphocytes Percent Auto 17.8 % (18.0-42.0); Mean Corpuscular HGB Conc 30.6 g/dL (32-36); Mean Corpuscular Hemoglobin 25.2 pg (27.0-31.0); Mean Corpuscular Volume 82.6 fL (78.0-102.0); Mean Platelet Volume 10.6 fl (8.7-11.0); Monocytes Absolute Auto 0.77 K/mm3 (0.10-0.90); Monocytes Percent Auto 8.8 % (2.0-11.0); Neutrophils Absolute Auto 6.08 K/mm3 (1.70-7.20); Neutrophils Percent Auto 69.5 % (50.0-70.0); Platelet Count Result 320 K/mm3 (150-420); Red Blood Count 5.11 M/mm3 (4.70-6.10); Red Cell Distribution Width 14.2 % (11.6-14.4); White Blood Count 8.8 K/mm3 (4.8-10.8)
[2025-05-25] MEDS: DEXTROSE 10% 250 ML 50 ML IV CONT (22:31)
[2025-05-25 22:38] LABS: Alanine Aminotransferase 27 U/L (6-50); Albumin Level 4.8 g/dL (3.5-5.1); Alkaline Phosphatase 64 U/L (38-126); Anion Gap 7 mmol/L (4-12); Aspartate Amino Transferase 39 U/L (17-59); Bilirubin,Total 0.4 mg/dL (0.2-1.3); Blood Urea Nitrogen 8 mg/dL (9-20); Calcium 9.9 mg/dL (8.4-10.2); Carbon Dioxide 29 mmol/L (22-30); Chloride 106 mmol/L (98-107); Estimated CRCL calculation 91 ml/min; Estimated Glomerular Filt Rate > 60; Magnesium 1.8 mg/dL (1.6-2.3); Osmolality Calculated 289 mOsm/kg (285-295); Potassium 3.4 mmol/L (3.4-5.0); Sodium 142 mmol/L (137-145); Total Protein 8.3 g/dL (6.3-8.2)
[2025-05-25 22:49] LABS: NT Pro B Type Natriuretic Pept 106 pg/mL (19.9-100); Troponin I < 0.012 ng/mL (0.000-0.034)
[2025-05-25 22:54] LABS: Glucose 40 mg/dL (65-110)
[2025-05-25 23:11] LABS: Glucose Point of Care 134 mg/dl (65-105)
[2025-05-25 23:35] LABS: Add Urine Microscopic? YES; Appearance Urine Clear (Clear); Bilirubin Urine Negative (Negative); Blood Urine Negative (Negative); Color Urine Light Yellow (Yellow); Glucose Urine UA 3+ (Negative); Ketones Urine Negative (Negative); Leukocyte Esterase Ur Negative LEU/UL (Negative); Nitrate Urine Negative (Negative); Protein Urine 1+ (Negative); Urobilinogen Urine 0.2 mg/dL (0.2-1.0)
[2025-05-25 23:45] LABS: Mucus Urine None seen /lpf; RBC Urine None seen /hpf (0-2); WBC Urine None seen /hpf (0-3)
[2025-05-26 00:09] LABS: Glucose Point of Care 142 mg/dl (65-105)
--- NOTE | 2025-05-26 00:14 | PC.NURSE ---
Pt talking on phone to ex , A&O x4, ambulated steadily in room, POC to d/c home, BS stable at this time.
[2025-05-26 00:54] VITALS: BP 132/85; PULSE 62; RESP 18; TEMP 36.5; O2SAT 97
== END 2025-05-26 00:54 | disposition home or self-care (01) ==
PROVIDERS: Emergency Provider Emergency Medicine; PCP Internal Medicine
DX: E11.649 Type 2 diabetes mellitus with hypoglycemia without coma (principal); I10 Essential (primary) hypertension; Z87.891 Personal history of nicotine dependence
CPT/HCPCS: 36415; 70450; 71045; 80053; 81001; 82948; 83735; 83880; 84484; 85025; 93005; 96374; 99284

== ENCOUNTER 2025-06-25 08:32 | Outpatient (CLI) | payer MEDICARE, MEDICAID, SELFPAY ==
--- OUTSIDE RECORDS SUMMARY | 2025-06-25 08:44 | XMS_ITS | Clinical Summary ---
Author Organization [facility] Address [address] [place] [address] Phone Care Team Providers Care Television Camera Operator Name Role Phone Bo Cummings MD Primary Care Provider [phone] Allergies Active Allergy Reactions Criticality Noted Date [...] Virus (HCV) Screening 1960 TdaP Immunization 1959 Cologuard 2004 Colonoscopy 2004 Colorectal Cancer Screening 2004 Immunochemical Fecal Occult Blood 2004 Zoster Immunization (1 of 2) 2009 PSA Discussion 2014 Respiratory Syncytial Virus (RSV) Immunization (Adult) (1 - Risk 60-74 years 1-dose series) 2019 Pneumococcal Immunization (50+ years) (2 of 2 - PCV) 10/16/2019 10/16/2018 SARS-COV-2 Immunization (4 - season) 2024 11/12/2021, 03/12/2021, 02/09/2021 Influenza Immunization (#1) 07/28/202509/28, 10/15/2021, 10/16/2019, Additional history exists Pneumococcal Immunization [...] topic Insurance MEDICARE [place]ICAID [place] Care Teams Television Camera Operator Relationship Specialty Start Date End Date Bo Cummings MD [address] [place] [address] PCP - General Internal Medicine 04/02/24
--- OUTSIDE RECORDS SUMMARY | 2025-06-25 08:44 | XMS_ITS | Encounter Summary ---
Author Organization [facility] Address [facility] [place] [address] Care Team Providers Care Pharmacist Hospital Name Role Phone Bo Cummings MD Primary Care Provider [phone] Roxana Bruno MD Unavailable Encounter Details Date Type Department Care Team (Late st Contact Info) Description 09/09/2022 Hospital Orders Only [place] [address] [place] [address] Betito Desouza MD [address] [place] [address] Social History Tobacco Use Types Packs/Day Years Used Date Smoking Tobacco: Former Cigarettes 4 15 0 02/17/1985 - 02/18/2000 Smokeless Tobacco: Never Alcohol Use Standard Drinks/Week Comments No 0 (1 standard drink = 0.6 oz pur e alcohol) Sex and Gender Information Value Date Recorded Sex Assigned at Male 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 Male 2:08 AM CDT Gender [...] Care Team (Late st Contact Info) Description 08/13/2025 1:45 PM CDT Office Visit [facility] [address] [place] [id number] Roxana Bruno MD [address] [place] [address] documented as of this encounter Visit Diagnoses Not on filedocumented in this encounter Care Teams Pharmacist Hospital Relationship Specialty Start Date End Date Bo Cummings MD [address] [place] [phone] PCP - General INTERNAL MEDICINE 08/18/22 Roxana Bruno MD [address] [place] [address] Consulting Physician CARDIOVASCULAR DISEASE 12/12/24 documented as of this encounter
--- OUTSIDE RECORDS SUMMARY | 2025-06-25 08:44 | XMS_ITS | Clinical Summary ---
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 Sex Male 2:08 AM CDT Gender Identity Not on file Sexual Orientation Not on file Last Filed Vital Signs Vital Sign Reading Time Taken Comments Blood Pressure 109/68 01/06/2025 12:15 PM CUTTING ROOM SUPERVISOR Pulse 75 01/06/2025 12:15 PM CUTTING ROOM SUPERVISOR Temperature 36.6 C (97.9 F) 02/17/2018 5:00 PM CDT Respiratory Rate 16 01/06/2025 12:15 PM CUTTING ROOM SUPERVISOR Oxygen Saturation 99% 01/06/2025 12:15 PM CUTTING ROOM SUPERVISOR Inhaled Oxygen Concentration - - Weight 92.1 kg (203 lb) 01/06/2025 12:15 PM CUTTING ROOM SUPERVISOR Height 175.3 cm (5' 9) 01/06/2025 12:15 PM CUTTING ROOM SUPERVISOR Body Mass Index 29.98 01/06/2025 12:15 PM CUTTING ROOM SUPERVISOR Plan of Treatment Upcoming Encounters Date Type Department Care Team (Late st Contact Info) Description 08/13/2025 1:45 PM CDT Office Visit [facility] [place] [address] Roxana Bruno MD [address] [place] [address] Health Maintenance Due Date Last Done Comments ASCVD Statin 1959 Colorectal Cancer Screening Colonoscopy (10 Years) 1959 Hepatitis C 1977 DTaP, Tdap and Td Vaccines ( 1 - Tdap) 1978 Zoster Vaccines (1 of 2) 2009 ASCVD LDL 04/17/2013 04/17/2012 RSV Immunization or 60+ Years (1 - Risk 60-74 years 1-dose series) 2019 Pneumococcal Vaccine: 50+ Years (2 of 2 - PCV) 10/16/2019 10/16/2018 COVID-19 Vaccine (4 - 2023-2 5 season) 2024 11/12/2021, 03/12/2021, 02/09/2021 AAA SCREENING 2024 Meningococcal B Vaccine Aged Out No l onger eligible based on patient's age to complete this topic Meningococcal Vaccine Aged Out No dulce alison eligible based on patient's age to complete this topic RSV Immunizations Under 20 Months Aged Out No longer eligible b ased on patient's age to complete this topic Procedures Procedure Name Priority Date/Time Associated Diagnosis Comments LIPID PANEL Routine 04/17/2012 12:00 AM CDT from Last 3 Months or Most Recently Relevant to Health Maintenance Results * LIPID PANEL (04/17/2012 12:00 AM CDT) [...] 5:19 AM 02/17/2018 7:31 PM Care Teams Medication Aide Relationship Specialty Start Date End Date oB Cummings MD [address] [place] [address] PCP - General INTERNAL MEDICINE 08/18/22 Roxana Bruno MD [address] [place] [address] Consulting Physician CARDIOVASCULAR DISEASE 12/12/24
--- OUTSIDE RECORDS SUMMARY | 2025-06-25 08:44 | XMS_ITS | Clinical Summary ---
Author Organization [facility] Address [address] [place] [address] Care Team Providers Care Equipment Processor Name Role Phone Bo Cummings MD Primary Care Provider [phone] Allergies Active Allergy Reactions Criticality Noted Date Comments Cyclobenzaprine Other (See comments) Medium 05/21/2024 Increases muscles spasms patient stated Medications FreeStyle Caitlyn 3 [place] misc as directed Active FreeStyle Caitlyn 3 Sensor device CHANGE SENSOR EVERY 14 DAYS (MED B ONLY COVERS FOR INSULIN DEPENDENT) Active DULoxetine DR (CYMBALTA) 30 mg capsule Take 1 capsule (30 mg total) by mouth 2 (two) times a day Active ezetimibe (ZETIA) 10 mg tablet Take 1 tablet (10 mg total) by mouth daily Active fenofibrate nanocrystallized (TRICOR) 145 mg tablet Take 1 tablet (145 mg total) by mouth nightly at bedtime. Active HYDROcodone-acetami nophen (NORCO) 10-325 mg per tablet Take 1 tablet by mouth 4 (four) times a day as needed for pain Active metFORMIN XR (GLUCOPHAGE XR) 500 mg 24 hr tablet Take 2 tablets (1,000 mg total) by mouth 2 (two) times a day Active montelukast (SINGULAIR) 10 mg tablet Take 1 tablet (10 mg total) by mouth daily Active omeprazole (PriLOSEC) 40 mg capsule Take 1 capsule (40 mg total) by mouth daily Active rosuvastatin (CRESTOR) 40 mg tablet Take 1 tablet (40 mg total) by mouth daily Active insulin aspart (NovoLOG) 100 unit/mL (3 mL) pen for injection Inject 120 Units under the skin 2 (two) times a day with lunch and dinner At noon and dinner Active aspirin 325 mg tablet Take 1 tablet (325 mg total) by mouth daily Active lisinopriL (PRINIVIL,ZESTRIL) 40 mg tablet Take 0.5 tablets (20 mg total) by mouth daily Active carvediloL (COREG) 12.5 mg tablet Take 1 tablet (12.5 mg total) by mouth 2 (two) times a day with meals Active dexAMETHasone (DECADRON) 1 mg tablet Take 1 tablet when directed 1 tablet Active Additional Information Patient not taking.Reported on 06/17/2025 insulin regular U-500 (HumuLIN R) 500 unit/mL (3 mL) CONCENTRATED pen for injection Take 90 units with breakfast and 70 units with dinner 15 mL 6 Active tirzepatide (Mounjaro) 2.5 mg/0.5 mL pen injector injection Inject 0.5 mL (2.5 mg total) under the skin once a week 2 mL 6 Active pioglitazone (ACTOS) 15 mg tabletIndications:t ype 2 diabetes mellitus Take 1 tablet (15 mg total) by mouth daily 2024 Discontinued insulin regular U-500 (HumuLIN R) 500 unit/mL (3 mL) CONCENTRATED pen for injection Take 185 units with breakfast and 95 units with dinner 15 mL 6 025 2024 Discontinued(R mejia) Active Problems Problem Noted Date Diagnosed Date Fungal sinusitis 11/12/2024 Assessment & Plan (11/12/2024 12:04 PM MERCHANDISING MANAGER): 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 Chronic maxillary sinusitis 11/12/2024 Assessment & Plan (11/12/2024 12:04 PM MERCHANDISING MANAGER): Endoscopic Right Maxillary Antrostomy with removal of [...] Encounters Date Type Department Care Team Description 06/18/2025 Telephone [facility] Medical [facility] Diabetes Endocrine Care at [address] [place] [phone] Galilea Bella DO 06/17/2025 3:00 PM CDT Office Visit [facility] Diabetes Endocrine Care at [address] [place] [phone] Galilea Bella DO Type 2 diabetes mellitus with hyperglycemia, with long-term current use of insulin (HCC) (Primary Dx) from Last 3 Months Immunizations Immunization Administration [...] Tobacco: Never Tobacco Cessation:Counseling Given: Not Answered [facility] Utilities Answer Date Recorded In the past 12 months has e [employer], gas, oil, or water [employer] threatened to shut off services in your home? No 08/30/2024 Social Connection and Isolation Panel [NHANES] A nswer Date Recorded In a typical week, how many times do you talk on the phone with family, friends, or neighbors? Once a week 08/30/2024 How often do you get together with friends or re latives? Once a week 08/30/2024 How often do you attend anglican or catholic serv ices? Never 08/30/2024 Do you belong to any clubs o r organizations such as anglican groups, unions, fraternal or athletic groups, or [...] any time in the past 12 m [facility], were you homeless or living in a assisted (including now)? No 08/30/2024 Personal Safety Answer Date Recorded Have you ever been in or are you currently in a harmful physical or emotional relationship or is someone making you feel afraid or unsafe? Denies 09/17/2024 Sex and Gender Information Value Date Recorded Sex Assigned at Not on file Legal Sex Male 11:28 AM MERCHANDISING MANAGER Gender Identity Not on file Sexual Orientation Not on file Obstetrics History Last Filed Vital Signs Vital Sign Reading Time Taken Comments Blood Pressure 130/54 06/17/2025 2:49 PM CDT Pulse 90 06/17/2025 2:49 PM CDT Temperature 36.1 C (97 F) 10/17/2024 1:01 PM MERCHANDISING MANAGER Respiratory Rate 18 11/12/2024 11:39 AM MERCHANDISING MANAGER Oxygen Saturation 97% 11/12/2024 11:39 AM MERCHANDISING MANAGER Inhaled Oxygen Concentration - - Weight 99.6 kg (219 lb 8 oz) 06/17/2025 2:49 PM CDT Height 175.3 cm (5' 9.02) 06/17/2025 2:49 PM CD T Body Mass Index 32.4 06/17/2025 2:49 PM CDT Plan of Treatment Health [...] 2024 Well Visit 65+ 2024 Influenza Vaccine (#1) 2025 2, 10/15/2021, 10/16/2019, Additional history exists Fall Risk Assessment 09/03/2025 09/03/2024 Hemoglobin A1C 12/18/2025 06/17/2025, 01/25, 08/30/2024, Additional history exists Lipid Panel 02/06/2026 02/06/2025, 04/17/2012 eGFR 02/06/2026 02/06/2025, 09/28, 09/17/2024, Additional history exists Dilated Eye Exam 02/19/2027 02/19/2025, 11/05/2024 Procedures Procedure Name Priority Date/Time Associated Diagnosis Comments POCT HEMOGLOBIN A1C Routine 06/17/2025 3 :01 PM CDT Type 2 diabetes mellitus with hyperglycemia, with long-term current use of insulin (HCC) DIABETIC EYE EXAM Routine 11/05/2024 EGFR Routine 10/17/2024 1:35 PM MERCHANDISING MANAGER Other acute osteomyelitis of right foot (HCC) from Last 3 Months or Most Recently Relevant to Health Maintenance Results * (ABNORMAL) POCT hemoglobin A1c (06/17/2025 3:01 PM CDT) Hemoglobin A1C, POC 11.2(A) 4.0 - 5.6 % Blood 06/17/2025 3:01 PM CDT Galilea Bella DO POINT OF CARE TEST ORDERABL ES Final Result * Diabetic Eye Exam (11/05/2024) 11/05/2024 [facility] Provider HEALTH MAINTENANCE Final Result * eGFR (10/17/2024 1:35 PM MERCHANDISING MANAGER) eGFR >90 >=60 mL/min/1. 73 m2 Comment: [...] last reviewed 2021. Blood 10/17/2024 1:35 PM MERCHANDISING MANAGER 10/17/2024 3:49 PM MERCHANDISING MANAGER us Hollis Kim MD LAB BLOOD ORDERABLES Final Result [facility] ([place]) [address] [facility] Department [place] [address] from Last 3 Months or Most Recently Relevant to Health Maintenance Insurance MEDICARE [facility] Address: [address] [address] [place] [address] IDPA MEDICARE [place]PA Advance Directives For more information, please contact: [phone] * Full Code (Latest Code Status on File) Date Activated Date Inactivated Comments 08/29/2024 3:00 PM 09/03/2024 8:37 PM Care Teams Equipment Processor Relationship Specialty Start Date End Date Bo Cummings MD PCP - General Internal Medicine 07/13/21
--- OUTSIDE RECORDS SUMMARY | 2025-06-25 08:44 | XMS_ITS | Referral Summary ---
Author Organization [facility] Address [address] [place] [phone] Care Team Providers Care Pipe Tester Name Role Phone Bo Cummings MD Primary Care Provider Encounters Date Type Department Care Team Description 06/18/2025 Telephone [facility] Diabetes Endocrine Care at [address] [phone] Galilea Bella DO 06/17/2025 3:00 PM CDT Office Visit [facility] Diabetes Endocrine Care at [address] [place] [phone] Galilea Bella DO Type 2 diabetes mellitus with hyperglycemia, with long-term current use of insulin (HCC) (Primary Dx) from Last 3 Months Allergies Active Allergy Reactions Criticality Noted Date Comments Cyclobenzaprine Other (See comments) Medium 05/21/2024 Increases muscles spasms patient stated Medications [facility] as directed Active FreeStyle Caitlyn 3 Sensor [...] the skin once a week 2 mL Active pioglitazone (ACTOS) 15 mg tabletIndications:t ype 2 diabetes mellitus Take 1 tablet (15 mg total) by mouth daily 2024 Discontinued insulin regular U-500 (HumuLIN R) 500 unit/mL (3 mL) CONCENTRATED pen for injection Take 185 units with breakfast and 95 units with dinner 15 mL 6 025 2024 Discontinued(R eorder) Active Problems Problem Noted Date Diagnosed Date Fungal sinusitis 11/12/2024 Assessment & Plan (11/12/2024 12:04 PM SINTER FEEDER): 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 Chronic maxillary sinusitis 11/12/2024 Assessment & Plan (11/12/2024 12:04 PM SINTER FEEDER): Endoscopic Right Maxillary Antrostomy with removal of [...] Tobacco: Never Tobacco Cessation:Counseling Given: Not Answered [facility] Utilities Answer Date Recorded In the past 12 months has [employer], gas, oil, or water Well threatened to shut off services in your home? No 08/30/2024 Social Connection and Isolation Panel [NHANES] A nswer Date Recorded In a typical week, how many times do you talk on the phone with family, friends, or neighbors? Once a week 08/30/2024 How often do you get together with friends or re latives? Once a week 08/30/2024 How often do you attend cheondoism or druze serv ices? Never 08/30/2024 Do you belong to any clubs o r organizations such as cheondoism groups, unions, fraternal or athletic groups, or [...] any time in the past 12 m [facility], were you homeless or living in a group home (including now)? No 08/30/2024 Personal Safety Answer Date Recorded Have you ever been in or are you currently in a harmful physical or emotional relationship or is someone making you feel afraid or unsafe? Denies 09/17/2024 Sex and Gender Information Value Date Recorded Sex Assigned at Not on file Legal Sex Male 11:28 AM SINTER FEEDER Gender Identity Not on file Sexual Orientation Not on file Last Filed Vital Signs Vital Sign Reading Time Taken Comments Blood Pressure 130/54 06/17/2025 2:49 PM CDT Pulse 90 06/17/2025 2:49 PM CDT Temperature 36.1 C (97 F) 10/17/2024 1:01 PM SINTER FEEDER Respiratory Rate 18 11/12/2024 11:39 AM SINTER FEEDER Oxygen Saturation 97% 11/12/2024 11:39 AM SINTER FEEDER Inhaled Oxygen Concentration - - Weight 99.6 kg (219 lb 8 oz) 06/17/2025 2:49 PM CDT Height 175.3 cm (5' 9.02) 06/17/2025 2:49 PM CD T Body Mass Index 32.4 06/17/2025 2:49 PM CDT Plan of Treatment Not on file Procedures Procedure Name Priority Date/Time Associated Diagnosis Comments POCT HEMOGLOBIN A1C Routine 06/17/2025 3 :01 PM CDT Type 2 diabetes mellitus with hyperglycemia, with long-term current use of insulin (HCC) DIABETIC EYE EXAM Routine 11/05/2024 EGFR Routine 10/17/2024 1:35 PM SINTER FEEDER Other acute osteomyelitis of right foot (HCC) from Last 3 Months or Most Recently Relevant to Health Maintenance Results * (ABNORMAL) POCT hemoglobin A1c (06/17/2025 3:01 PM CDT) Hemoglobin A1C, POC 11.2(A) 4.0 - 5.6 % Blood 06/17/2025 3:01 PM CDT Galilea Bella DO POINT OF CARE TEST ORDERABL ES Final Result * Diabetic Eye Exam (11/05/2024) 11/05/2024 Historical Provider HEALTH MAINTENANCE Final Result * eGFR (10/17/2024 1:35 PM SINTER FEEDER) eGFR >90 >=60 mL/min/1. 73 m2 Comment: [...] last reviewed 2021. Blood 10/17/2024 1:35 PM SINTER FEEDER 10/17/2024 3:49 PM SINTER FEEDER us Hollis Kim MD LAB BLOOD ORDERABLES Final Result [facility] ([place]) 1 [facility] Department [place] [address] from Last 3 Months or Most Recently Relevant to Health Maintenance Insurance MEDICARE IDPA MEDICARE [facility] Address: [address] [place] [address] [place] Advance Directives For more information, please contact: [phone] * Full Code (Latest Code Status on File) Date Activated Date Inactivated Comments 08/29/2024 3:00 PM 09/03/2024 8:37 PM Care Teams Pipe Tester Relationship Specialty Start Date End Date Bo Cummings MD PCP - General Internal Medicine 07/13/21
[2025-06-25 09:24] LABS: MALB Creatinine Ratio 26.7 mg/g (0-30)
[2025-06-25 09:25] LABS: Glucose 295 mg/dL (65-110)
[2025-06-30 15:08] LABS: GAD-65 Antibody <5.0 U/mL (0.0-5.0)
== END 2025-06-25 08:33 | disposition home or self-care (01) ==
LOC: CHSLAB 08:36
PROVIDERS: PCP Internal Medicine
DX: E11.65 Type 2 diabetes mellitus with hyperglycemia (principal); Z79.4 Long term (current) use of insulin
CPT/HCPCS: 36415; 82043; 82947; 83525; 84681; 86341

== ENCOUNTER 2025-07-14 12:55 | Outpatient (CLI) | payer MEDICARE, MEDICAID, SELFPAY ==
--- NOTE | ~2025-07-14 | XR_ITS ---
EXAM/ PROCEDURE: XR hip LT min 2V - 07/14/2025 13:04 CDT HISTORY: 64 years old Male with Sciatic pain X 2 yrs, leg giving out and falling COMPARISON: None available TECHNIQUE: Two view(s) FINDINGS/ IMPRESSION: There are no fractures or dislocations.Joint space narrowing, subchondral sclerosis, subchondral cyst formation and osteophyte formation, compatible with mild osteoarthritis. Reviewed, dictated and finalized at location A.
--- OUTSIDE RECORDS SUMMARY | 2025-07-14 13:31 | XMS_ITS | Clinical Summary ---
Author Organization [facility] Address [address] [place] [address] Phone Care Team Providers Care Feeder Catcher Name Role Phone Bo Cummings MD Primary Care Provider [phone] Allergies Active Allergy Reactions Criticality Noted Date [...] topic Insurance MEDICARE [place]ICAID [place] Care Teams Feeder Catcher Relationship Specialty Start Date End Date Bo Cummings MD [address] [place] [address] PCP - General Internal Medicine 04/02/24
--- OUTSIDE RECORDS SUMMARY | 2025-07-14 13:32 | XMS_ITS | Clinical Summary ---
Author Organization [facility] Address [address] [place] [phone] Care Team Providers Care Felling Bucking Supervisor Name Role Phone Bo Cummings MD Primary Care Provider [phone] Allergies Active Allergy Reactions Criticality Noted Date Comments Cyclobenzaprine Other (See comments) Medium 05/21/2024 Increases muscles spasms patient stated Medications FreeStyle Caitlyn 3 [place] misc as directed Active FreeStyle Ciatlyn 3 Sensor device CHANGE SENSOR EVERY 14 [...] 11/12/2024 Assessment & Plan (11/12/2024 12:04 PM COMMISSION FOR THE BLIND DIRECTOR): 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 Chronic maxillary sinusitis 11/12/2024 Assessment & Plan (11/12/2024 12:04 PM COMMISSION FOR THE BLIND DIRECTOR): Endoscopic Right Maxillary Antrostomy with removal of [...] Type Department Care Team Description 06/18/2025 Telephone [facility] Diabetes Endocrine Care at [address] [place] [address] Galilea Bella DO 06/17/2025 3:00 PM CDT Office Visit [facility] Diabetes Endocrine Care at [address] [place] [address] Galilea Bella DO Type 2 diabetes mellitus with hyperglycemia, with long-term current use of insulin (HCC) (Primary Dx) from Last 3 Months Immunizations Immunization Administration Dates Next Due Influenza, Unspecified 08/29/2024(Deferred: Rubina ent Refused) Surgical History Surgery Date Site/Laterality Comments CORONARY ARTERY BYPASS GRAFT triple bypass NOSE SURGERY reconstructed APPENDECTOMY Medical History Medical History Date Comments Hypertension Type 2 diabetes mellitus Stroke (HCC) TIA's with a lit tle weakness on the left side Cancer (HCC) Colon cancer Back injury back broken in 2 different areas Social History Tobacco Use Types Packs/Day Years Used Date Smoking Tobacco: Former Cigarettes Smokeless Tobacco: Never Tobacco Cessation:Counseling Given: Not Answered [facility] Utilities Answer Date Recorded In the past 12 months has e [employer], gas, oil, or water [employer] threatened to shut off services in your home? No 08/30/2024 Social Connection and Isolation Panel Answer Date Recorded In a typical week, how many times do you talk on the phone with family, friends, or neighbors? Once a week 08/30/2024 How often do you get together with friends or re latives? Once a week 08/30/2024 How often do you attend hindu or muslim serv ices? Never 08/30/2024 Do you belong to any clubs o r organizations such as hindu groups, unions, fraternal or athletic groups, or [...] any time in the past 12 m [facility], were you homeless or living in a nursing home (including now)? No 08/30/2024 Personal Safety Answer Date Recorded Have you ever been in or are you currently in a harmful physical or emotional relationship or is someone making you feel afraid or unsafe? Denies 09/17/2024 Sex and Gender Information Value Date Recorded Sex Assigned at Not on file Legal Sex Male 11:28 AM COMMISSION FOR THE BLIND DIRECTOR Gender Identity Not on file Sexual Orientation Not on file Obstetrics History Last Filed Vital Signs Vital Sign Reading Time Taken Comments Blood Pressure 130/54 06/17/2025 2:49 PM CDT Pulse 90 06/17/2025 2:49 PM CDT Temperature 36.1 C (97 F) 10/17/2024 1:01 PM COMMISSION FOR THE BLIND DIRECTOR Respiratory Rate 18 11/12/2024 11:39 AM COMMISSION FOR THE BLIND DIRECTOR Oxygen Saturation 97% 11/12/2024 11:39 AM COMMISSION FOR THE BLIND DIRECTOR Inhaled Oxygen Concentration - - Weight 99.6 kg (219 lb 8 oz) 06/17/2025 2:49 PM CDT Height 175.3 cm (5' 9.02) 06/17/2025 2:49 PM CD T Body Mass Index 32.4 06/17/2025 2:49 PM CDT Plan of Treatment Health Maintenance Due Date Last Done Comments Colon Cancer Screening-Colonoscopy 1960 Depression Screening 1960 [...] Visit 65+ 2024 Influenza Vaccine (#1) 2025 , 10/15/2021, 10/16/2019, Additional history exists Fall Risk Assessment 09/03/2025 09/03/2024 Hemoglobin A1C 12/18/2025 06/17/2025, 03/01/2025, 08/30/2024, Additional history exists Lipid Panel 02/06/2026 02/06/2025, 04/17/2012 eGFR 02/06/2026 02/06/2025, 09/28, 09/17/2024, Additional history exists Albumin Creatinine Ratio, Urine 06/25/2026 Dilated Eye Exam 02/19/2027 02/19/2025, 11/05/2024 Procedures Procedure Name Priority Date/Time Associated Diagnosis Comments CLARITA-65 AUTOANTIBODY Routine 06/25/2025 C-PEPTIDE Routine 06/25/2025 ALBUMIN CREATININE RATIO, URINE Routine 06/25/2025 Type 2 diabetes mellitus with hyperglycemia, with long-term current use of insulin (HCC) POCT HEMOGLOBIN A1C Routine 06/17/2025 3 :01 PM CDT Type 2 diabetes mellitus with hyperglycemia, with long-term current use of insulin (HCC) DIABETIC EYE EXAM Routine 11/05/2024 EGFR Routine 10/17/2024 1:35 PM COMMISSION FOR THE BLIND DIRECTOR Other acute osteomyelitis of right foot (HCC) from Last 3 Months or Most Recently Relevant to Health Maintenance Results * CLARITA-65 Autoantibody (06/25/2025) 06/25/2025 us Historical Provider LAB BLOOD ORDERABLES Marilu l Result EXTERNAL LAB * Albumin Creatinine Ratio, Urine (06/25/2025) SCRIBED Creatinine, Urine 46.8 NONE mg/dL EXTERNAL LAB SCRIBED Microalbumin 12.5 NONE mg/L EXTERNAL LAB SCRIBED Microalb/Creat Ratio 26.7 1 - 29 mg/g EXTERNAL LAB Urine 06/25/2025 us Galilea Bella DO LAB URINE ORDERABLES Final Result EXTERNAL LAB * C-peptide (06/25/2025) SCRIBED C-Peptide 2.4 1.1 - 4.4 ng/mL EXTERNAL LAB Blood 06/25/2025 Historical Provider LAB BLOOD ORDERABLES Marilu l Result EXTERNAL LAB * (ABNORMAL) POCT hemoglobin A1c (06/17/2025 3:01 PM CDT) Hemoglobin A1C, POC 11.2(A) 4.0 - 5.6 % Blood 06/17/2025 3:01 PM CDT Galilea Bella DO POINT OF CARE TEST ORDERABL ES Edited Result - Final * Diabetic Eye Exam (11/05/2024) 11/05/2024 Historical Provider HEALTH MAINTENANCE Final Result * eGFR (10/17/2024 1:35 PM COMMISSION FOR THE BLIND DIRECTOR) eGFR >90 >=60 mL/min/1. 73 m2 Comment: [...] last reviewed 2021. Blood 10/17/2024 1:35 PM COMMISSION FOR THE BLIND DIRECTOR 10/17/2024 3:49 PM COMMISSION FOR THE BLIND DIRECTOR us Hollis Kim MD LAB BLOOD ORDERABLES Final Result [facility] ([place] 1 [facility] Department [place] [address] from Last 3 Months or Most Recently Relevant to Health Maintenance Insurance MEDICARE [facility] MEDICARE IDPA Advance Directives For more information, please contact: [phone] * Full Code (Latest Code Status on File) Date Activated Date Inactivated Comments 08/29/2024 3:00 PM 09/03/2024 8:37 PM Care Teams Felling Bucking Supervisor Relationship Specialty Start Date End Date Bo Cummings MD PCP - General Internal Medicine 07/13/21
--- OUTSIDE RECORDS SUMMARY | 2025-07-14 13:32 | XMS_ITS | Clinical Summary ---
Author Organization [facility] Address [facility] [place] [address] Care Team Providers Care Exhaust Emissions Inspector Name Role Phone Bo Cummings MD Primary [...] Encounters Date Type Department Care Team Description 07/09/2025 Orders Only [facility] [address] [place] [address] Roxana Bruno MD from Last 3 Months Family History Medical [...] Sex Assigned at Male 01/06/2025 1:46 PM OFFICE SERVICES REPRESENTATIVE Legal Sex Male 2:08 AM CDT Gender Identity Not on file Sexual Orientation Not on file Last Filed Vital Signs Vital Sign Reading Time Taken Comments Blood Pressure 109/68 01/06/2025 12:15 PM OFFICE SERVICES REPRESENTATIVE Pulse 75 01/06/2025 12:15 PM OFFICE SERVICES REPRESENTATIVE Temperature 36.6 C (97.9 F) 02/17/2018 5:00 PM CDT Respiratory Rate 16 01/06/2025 12:15 PM OFFICE SERVICES REPRESENTATIVE Oxygen Saturation 99% 01/06/2025 12:15 PM OFFICE SERVICES REPRESENTATIVE Inhaled Oxygen Concentration - - Weight 92.1 kg (203 lb) 01/06/2025 12:15 PM OFFICE SERVICES REPRESENTATIVE Height 175.3 cm (5' 9) 01/06/2025 12:15 PM OFFICE SERVICES REPRESENTATIVE Body Mass Index 29.98 01/06/2025 12:15 PM OFFICE SERVICES REPRESENTATIVE Plan of Treatment Upcoming Encounters Date Type Department Care Team (Late st Contact Info) Description 08/13/2025 1:45 PM CDT Office Visit [facility] [place] [address] Roxana Bruno MD [address] [place] [address] Health Maintenance Due Date Last Done Comments [...] 5:19 AM 02/17/2018 7:31 PM Care Teams Exhaust Emissions Inspector Relationship Specialty Start Date End Date Bo Cummings MD [address] [place] [phone] PCP - General INTERNAL MEDICINE 08/18/22 Roxana Bruno MD [address] [place] [address] Consulting Physician CARDIOVASCULAR DISEASE 12/12/24
== END 2025-07-14 12:56 | disposition home or self-care (01) ==
LOC: CHSIMG 12:56
PROVIDERS: PCP Internal Medicine; Visit Provider Internal Medicine
DX: M25.552 Pain in left hip (principal)
CPT/HCPCS: 73502

== ENCOUNTER 2025-08-14 14:36 | Outpatient (CLI) | payer MEDICARE, MEDICAID, SELFPAY ==
--- OUTSIDE RECORDS SUMMARY | 2025-08-14 14:40 | XMS_ITS | Clinical Summary ---
Author Organization [facility] Address [address] [place] [phone] Care Team Providers Care Master Merchandiser Name Role Phone Bo Cummings MD Primary Care Provider [phone] Allergies Active Allergy Reactions Criticality Noted Date Comments Cyclobenzaprine Other (See comments) Medium 05/21/2024 Increases muscles spasms patient stated Medications FreeStyle Caitlyn 3 Hamill misc as directed 02/22/20 24 Active FreeStyle [...] when directed 1 tablet 02/14/20 25 Active Additional Information Patient not taking.Reported on 06/17/2025 insulin regular U-500 (HumuLIN R) 500 unit/mL (3 mL) CONCENTRATED pen for injection Take 90 units with breakfast and 70 units with dinner 15 mL 6 06/17/20 25 Active tirzepatide (Mounjaro) 2.5 mg/0.5 mL pen injector injection Inject 0.5 mL (2.5 mg total) under the skin once a week 2 mL 6 06/17/20 25 Active pen needle, diabetic 32 gauge x 5/32 needle Used to inject insulin three times daily 300 each 3 08/01/20 25 Active blood glucose diagnostic (glucose blood) strip Check blood sugar four times a day or as directed 400 each 11 08/01/20 25 Active Active Problems Problem Noted Date Diagnosed Date 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 Chronic maxillary sinusitis 11/12/2024 Assessment & Plan (11/12/2024 12:04 PM CATERING CONVENTION SERVICES MANAGER): Endoscopic Right Maxillary Antrostomy with removal [...] Type Department Care Team Description 06/18/2025 Telephone [facility] Diabetes Endocrine Care at [address] [place] [phone] Galilea Bella DO 06/17/2025 3:00 PM CDT Office Visit [facility] Diabetes Endocrine Care at [address] [place] [address] Galilea Bella, DO Type 2 diabetes mellitus with hyperglycemia, [...] Tobacco: Never Tobacco Cessation:Counseling Given: Not Answered [facility] Utilities Answer Date Recorded In the past 12 months has [employer], gas, oil, or water [employer] threatened to shut off services in your home? No 08/30/2024 Social Connection and Isolation Panel Answer Date Recorded In a typical week, how many times do you talk on the phone with family, friends, or neighbors? Once a week 08/30/2024 How often do you get together with friends or re latives? Once a week 08/30/2024 How often do you attend scientology or baptism serv ices? Never 08/30/2024 Do you belong to any clubs o r organizations such as scientology groups, unions, fraternal or athletic groups, or [...] any time in the past 12 m [facility], were you homeless or living in a usp (including now)? No 08/30/2024 Personal Safety Answer Date Recorded Have you ever been in or are you currently in a harmful physical or emotional relationship or is someone making you feel afraid or unsafe? Denies 09/17/2024 Sex and Gender Information Value Date Recorded Sex Assigned at Not on file Legal Sex Male 11:28 AM CATERING CONVENTION SERVICES MANAGER Gender Identity Not on file Sexual Orientation Not on file Obstetrics History Last Filed Vital Signs Vital Sign Reading Time Taken Comments Blood Pressure 130/54 06/17/2025 2:49 PM CDT Pulse 90 06/17/2025 2:49 PM CDT Temperature 36.1 C (97 F) 10/17/2024 1:01 PM CATERING CONVENTION SERVICES MANAGER Respiratory Rate 18 11/12/2024 11:39 AM CATERING CONVENTION SERVICES MANAGER Oxygen Saturation 97% 11/12/2024 11:39 AM CATERING CONVENTION SERVICES MANAGER Inhaled Oxygen Concentration - - Weight [...] (2 of 2 - PCV) 10/16/2019 10/16/2018 Abdominal Aortic Aneurysm (A AA) Screen 2024 Well Visit 65+ 2024 Covid-19 Vaccine (4 - 2024-2 6 season) 2025 11/12/2021, 03/12/2021, 02/09/2021 Influenza Vaccine (#1) 2025 , 10/15/2021, 10/16/2019, Additional history exists Fall Risk Assessment 09/03/2025 09/03/2024 Hemoglobin A1C 12/18/2025 06/17/2025, 03/1 01/2025, 08/30/2024, Additional history exists Lipid Panel 02/06/2026 02/06/2025, 04/17/2012 eGFR 02/06/2026 02/06/2025, 11/2 11/2023, 09/17/2024, Additional history exists Albumin Creatinine Ratio, [...] Routine 11/05/2024 EGFR Routine 10/17/2024 1:35 PM CATERING CONVENTION SERVICES MANAGER Other acute osteomyelitis of right foot (HCC) from Last 3 Months or Most Recently Relevant to Health Maintenance Results * CLARITA-65 Autoantibody (06/25/2025) 06/25/2025 Historical Provider MD LAB BLOOD ORDERABLES Marilu l Result EXTERNAL LAB * Albumin Creatinine Ratio, Urine (06/25/2025) SCRIBED Creatinine, Urine 46.8 NONE mg/dL EXTERNAL LAB SCRIBED Microalbumin 12.5 NONE mg/L EXTERNAL LAB SCRIBED Microalb/Creat Ratio 26.7 1 - 29 mg/g EXTERNAL LAB Urine 06/25/2025 Galilea Bella DO LAB URINE ORDERABLES Final Result EXTERNAL LAB * C-peptide (06/25/2025) SCRIBED C-Peptide 2.4 1.1 - 4.4 ng/mL EXTERNAL LAB Blood 06/25/2025 Result [facility] Historical Provider LAB BLOOD ORDERABLES Marilu rob Result EXTERNAL LAB * (ABNORMAL) POCT hemoglobin A1c (06/17/2025 3:01 PM CDT) Hemoglobin A1C, POC 11.2(A) 4.0 - 5.6 % Blood 06/17/2025 3:01 PM CDT Result [facility] Galilea Bella DO POINT OF CARE TEST ORDERABL ES Edited Result - Final * Diabetic Eye Exam (11/05/2024) 11/05/2024 Historical Provider HEALTH MAINTENANCE Final Result * eGFR (10/17/2024 1:35 PM CATERING CONVENTION SERVICES MANAGER) eGFR >90 >=60 mL/min/1. 73 m2 [...] last reviewed 2021. Blood 10/17/2024 1:35 PM CATERING CONVENTION SERVICES MANAGER 10/17/2024 3:49 PM CATERING CONVENTION SERVICES MANAGER us Hollis Kim MD LAB BLOOD ORDERABLES Final Result [facility] ([facility]) [address] [facility] Department [place] [address] from Last 3 Months or Most Recently Relevant to Health Maintenance Insurance [facility] MEDICARE IDPA Advance Directives For more information, please contact: [phone] * Full Code (Latest Code Status on File) Date Activated Date Inactivated Comments 08/29/2024 3:00 PM 09/03/2024 8:37 PM Care Teams Master Merchandiser Relationship Specialty Start Date End Date Bo Cummings MD PCP - General Internal Medicine 07/13/21
--- OUTSIDE RECORDS SUMMARY | 2025-08-14 14:40 | XMS_ITS | Clinical Summary ---
Author Organization [facility] Address [address] [place] [address] Phone Care Team Providers Care Sales Trader Name Role Phone Bo Cummings MD Primary Care Provider [phone] Allergies Active Allergy Reactions Criticality Noted Date [...] - PCV) 10/16/2019 10/16/2018 Influenza Immunization (#1) 07/28/202509/28, 10/15/2021, 10/16/2019, Additional history exists SARS-COV-2 Immunization ( season) 2025 11/12/2021, 03/12/2021, 02/09/2021 Pneumococcal Immunization Combined Discontinued 10/16/2018 Hepatitis B [...] topic Insurance MEDICARE [place]ICAID [place] Care Teams Sales Trader Relationship Specialty Start Date End Date Bo Cummings MD [address] [place] [address] PCP - General Internal Medicine 04/02/24
--- OUTSIDE RECORDS SUMMARY | 2025-08-14 14:40 | XMS_ITS | Encounter Summary ---
Author Organization [facility] Address [facility] [place] [address] Care Team Providers Care Service Person Name Role Phone Bo Cummings MD Primary Care Provider Roxana Bruno MD Unavailable Encounter Details Date Type Department Care Team (Late st Contact Info) Description 09/09/2022 Hospital Orders Only [employer] [facility] [address] [place] [address] Betito Desouza MD [address] [place] [address] Social History Tobacco Use Types Packs/Day Years Used Date Smoking Tobacco: Former Cigarettes 4 15 0 02/17/1985 - 02/18/2000 Smokeless Tobacco: Never Alcohol Use Standard Drinks/Week Comments No 0 (1 standard drink = 0.6 oz pur e alcohol) Sex and Gender Information Value Date Recorded Sex Assigned at Male 01/06/2025 1:46 PM ED EDUCATIONAL AIDE Legal Sex Male 2:08 AM CDT Gender [...] Care Team (Late st Contact Info) Description 08/25/2025 1:45 PM CDT Office Visit [facility] [address] [place] [phone] Roxana Bruno MD [address] [place] [address] documented as of this encounter Visit Diagnoses Not on filedocumented in this encounter Care Teams Service Person Relationship Specialty Start Date End Date Bo Cummings MD [address] [place] [phone] PCP - General INTERNAL MEDICINE 08/18/22 Roxana Bruno MD [address] [place] [address] Consulting Physician CARDIOVASCULAR DISEASE 12/12/24 documented as of this encounter
--- OUTSIDE RECORDS SUMMARY | 2025-08-14 14:40 | XMS_ITS | Clinical Summary ---
Author Organization [facility] Address [address] [place] [address] Care Team Providers Care Armature [employer] Name Role Phone Bo Cummings MD Primary Care Provider [phone] Roxana Bruno MD Unavailable Allergies Active Allergy [...] Encounters Date Type Department Care Team Description 08/13/2025 Telephone [facility] [address] [place] [address] Roxana Bruno MD Appointment Reminder 07/09/2025 Orders Only [facility] [address] [place] [address] Roxana Bruno MD from Last 3 Months [...] Sex Assigned at Male 01/06/2025 1:46 PM LEDGER POSTER Legal Sex Male 2:08 AM CDT Gender Identity Not on file Sexual Orientation Not on file Last Filed Vital Signs Vital Sign Reading Time Taken Comments Blood Pressure 109/68 01/06/2025 12:15 PM LEDGER POSTER Pulse 75 01/06/2025 12:15 PM LEDGER POSTER Temperature 36.6 C (97.9 F) 02/17/2018 5:00 PM CDT Respiratory Rate 16 01/06/2025 12:15 PM LEDGER POSTER Oxygen Saturation 99% 01/06/2025 12:15 PM LEDGER POSTER Inhaled Oxygen Concentration - - Weight 92.1 kg (203 lb) 01/06/2025 12:15 PM LEDGER POSTER Height 175.3 cm (5' 9) 01/06/2025 12:15 PM LEDGER POSTER Body Mass Index 29.98 01/06/2025 12:15 PM LEDGER POSTER Plan of Treatment Upcoming Encounters Date Type Department Care Team (Late st Contact Info) Description 08/25/2025 1:45 PM CDT Office Visit [facility] [place] [address] Roxana Bruno MD [address] [place] [address] Health Maintenance Due Date Last Done Comments [...] (2 of 2 - PCV) 10/16/2019 10/16/2018 AAA SCREENING 2024 COVID-19 Vaccine (4 - 2024-2 6 season) 2025 11/12/2021, 03/12/2021, 02/09/2021 Meningococcal B Vaccine Aged Out No l [...] 5:19 AM 02/17/2018 7:31 PM Care Teams [employer] Relationship Specialty Start Date End Date Bo Cummings MD [address] [place] [phone] PCP - General INTERNAL MEDICINE 08/18/22 Roxana Bruno MD [address] [place] [address] Consulting Physician CARDIOVASCULAR DISEASE 12/12/24
--- OUTSIDE RECORDS SUMMARY | 2025-08-14 14:40 | XMS_ITS | Encounter Summary ---
Author Organization [facility] Address [facility] [place] [address] Care Team Providers Care Cigarette Filter Inspector Name Role Phone Bo Cummings MD Primary Care Provider [phone] Roxana Bruno MD Unavailable Reason for Visit * Reason Onset Date Comments Appointment Reminder 08/13/2025 Encounter Details Date Type Department Care Team (Late Contact Info) Description 08/13/2025 Telephone [facility] [address] [place] [address] Roxana Bruno MD [address] [place] [address] Appointment Reminder Social History Tobacco Use Types Packs/Day Years Used Date Smoking Tobacco: Former Cigarettes 4 23 0 02/17/1977 - 02/18/2000 Smokeless Tobacco: Never Alcohol Use Standard Drinks/Week Comments No 0 (1 standard drink = 0.6 oz pur e alcohol) Sex and Gender Information Value Date Recorded Sex Assigned at Male 01/06/2025 1:46 PM NANOSYSTEMS ENGINEER Legal Sex Male 2:08 AM CDT Gender Identity Not on file Sexual Orientation Not on file documented as of this encounter Progress Notes * Vannessa Youssef - 08/13/2025 10:55 AM CDT Notified pt of reschedule today with bjorn in [place] to 08/25/25 at 1:45 documented in this encounter Plan of Treatment Upcoming Encounters Date Type Department Care Team (Late Contact Info) Description 08/25/2025 1:45 PM CDT Office Visit [facility] [place] [phone] Roxana Bruno MD [address] [place] [address] documented as of this encounter Visit Diagnoses Not on filedocumented in this encounter Care Teams Cigarette Filter Inspector Relationship Specialty Start Date End Date Bo Cummings MD [address] [place] [address] PCP - General INTERNAL MEDICINE 08/18/22 Roxana Bruno MD [address] [place] [address] Consulting Physician CARDIOVASCULAR DISEASE 12/12/24 documented as of this encounter
[2025-08-14 15:06] LABS: Hematocrit 39.3 % (37.0-46.0); Hemoglobin 12.3 g/dL (12.4-15.3); Mean Corpuscular HGB Conc 31.3 g/dL (32-36); Mean Corpuscular Hemoglobin 25.4 pg (27.0-31.0); Mean Corpuscular Volume 81.0 fL (78.0-102.0); Platelet Count Result 265 K/mm3 (150-420); Red Blood Count 4.85 M/mm3 (4.70-6.10); White Blood Count 6.6 K/mm3 (4.8-10.8)
[2025-08-14 15:19] LABS: MALB Creatinine Ratio 59.3 mg/g (0-30)
[2025-08-14 15:36] LABS: Alanine Aminotransferase 23 U/L (6-50); Albumin Level 4.7 g/dL (3.5-5.1); Alkaline Phosphatase 90 U/L (38-126); Anion Gap 15 mmol/L (4-12); Aspartate Amino Transferase 26 U/L (17-59); Bilirubin,Total 0.5 mg/dL (0.2-1.3); Blood Urea Nitrogen 10 mg/dL (9-20); Calcium 10.5 mg/dL (8.4-10.2); Carbon Dioxide 23 mmol/L (22-30); Chloride 99 mmol/L (98-107); Cholesterol 318 mg/dL (0-200); Estimated Glomerular Filt Rate > 60; Glucose 495 mg/dL (65-110); HDL Direct 54 mg/dL; Osmolality Calculated 305 mOsm/kg (285-295); Potassium 5.1 mmol/L (3.4-5.0); Sodium 137 mmol/L (137-145); Total Protein 8.5 g/dL (6.3-8.2)
[2025-08-14 15:40] LABS: Triglycerides > 525 mg/dL (<150)
[2025-08-14 16:05] LABS: Thyroid Stimulating Hormone 1.330 uIU/mL (0.465-4.680)
== END 2025-08-14 14:37 | disposition home or self-care (01) ==
LOC: CHSLAB 14:38
PROVIDERS: PCP Internal Medicine; Visit Provider Internal Medicine
DX: E78.5 Hyperlipidemia, unspecified (principal); E11.65 Type 2 diabetes mellitus with hyperglycemia
CPT/HCPCS: 36415; 80053; 80061; 82043; 84443; 85027

== ENCOUNTER 2025-11-06 14:47 | Outpatient (CLI) | payer MEDICARE, MEDICAID, SELFPAY ==
[2025-11-06 15:11] LABS: Hematocrit 37.2 % (37.0-46.0); Hemoglobin 11.7 g/dL (12.4-15.3); Mean Corpuscular HGB Conc 31.5 g/dL (32-36); Mean Corpuscular Hemoglobin 26.3 pg (27.0-31.0); Mean Corpuscular Volume 83.6 fL (78.0-102.0); Platelet Count Result 256 K/mm3 (150-420); Red Blood Count 4.45 M/mm3 (4.70-6.10); White Blood Count 4.7 K/mm3 (4.8-10.8)
[2025-11-06 16:31] LABS: Alanine Aminotransferase 19 U/L (6-50); Albumin Level 4.5 g/dL (3.5-5.1); Alkaline Phosphatase 90 U/L (38-126); Anion Gap 9 mmol/L (4-12); Aspartate Amino Transferase 25 U/L (17-59); Bilirubin,Total 0.2 mg/dL (0.2-1.3); Blood Urea Nitrogen 5 mg/dL (9-20); Calcium 9.6 mg/dL (8.4-10.2); Carbon Dioxide 26 mmol/L (22-30); Chloride 106 mmol/L (98-107); Cholesterol 242 mg/dL (0-200); Estimated Glomerular Filt Rate > 60; Glucose 314 mg/dL (65-110); HDL Direct 52 mg/dL; Osmolality Calculated 301 mOsm/kg (285-295); Potassium 4.1 mmol/L (3.4-5.0); Sodium 141 mmol/L (137-145); Total Protein 7.0 g/dL (6.3-8.2); Triglycerides 434 mg/dL (<150)
[2025-11-06 16:45] LABS: MALB Creatinine Ratio 21.3 mg/g (0-30)
[2025-11-06 16:59] LABS: Thyroid Stimulating Hormone 2.420 uIU/mL (0.465-4.680)
== END 2025-11-06 14:48 | disposition home or self-care (01) ==
LOC: CHSLAB 14:50
PROVIDERS: PCP Internal Medicine; Visit Provider Internal Medicine
DX: E78.5 Hyperlipidemia, unspecified (principal); E11.49 Type 2 diabetes mellitus with other diabetic neurological complication
CPT/HCPCS: 36415; 80053; 80061; 82043; 84443; 85027